=== PATIENT | male | born 1965 | race Caucasian/White ===

== ENCOUNTER 2023-02-27 08:29 | Emergency (ER) | payer BC, SELFPAY ==
[2023-02-27] VITALS (14 sets, daily range): BP systolic 106–143; BP diastolic 67–82; BMI 37.4
--- NOTE | 2023-02-27 09:45 | ED.GENMED ---
History of Present Illness
General
Chief Complaint: Cough
Source: patient
Exam Limitations: none
Time Seen by Provider: 02/27/23 08:48
Nursing documentation reviewed up to this point in time: agreed with
Travel History
Have you had any contact with someone who has COVID-19?: No
Do you have any symptoms of coronavirus? Fever > 100 degrees, chills, cough, shortness of breath, sore throat, loss of taste or smell, muscle aches, or headache?: No
History of Present Illness
History of Present Illness:
Patient status post thoracic dissection repair 1 month ago at [facility], who subsequently acquired ventilator associated pneumonia, presents to ED secondary to coughing up 'blood' since last night. Per patient and spouse
at bedside, patient has had ongoing intermittent cough postoperatively, with sometimes described as harsh cough. Denies chest pain. Denies shortness of breath. Denies fever. Denies nausea or vomiting. Denies abdominal pain. Denies new trauma.
Denies dizziness or weakness.
Past History
Past History
ED Past Medical History: CAD, HTN, Hypercholesterolemia, NIDDM, Psychiatric (Anxiety) and Other (Thoracic aneurysm that they are watching, Kidney stones)
ED Past Surgical History: Appendectomy, Cardiac and Other (gastric bypass, Hernia repair left sided)
Social History
Tobacco: Non-smoker
Alcohol: None
Drug: None
Personal:
Living: with family
Employment: Employed
Family History
Family History: CAD and Other
Review of Systems
Review of Systems
Allergies reviewed?: Yes
All Other Systems: ROS reviewed and negative except as documented in HPI and ROS
Constitutional: Reports no symptoms
EENT: Reports no symptoms
Respiratory: Reports cough, hemoptysis and other; Denies trouble breathing
Cardiac: Reports no symptoms
ABD/GI: Reports no symptoms
: Reports no symptoms
Musculoskeletal: Reports no symptoms
Skin: Reports no symptoms
Neurological: Reports no symptoms
Phy Exam
Physical Exam
Physical Exam:
Physical Exam
General: no apparent distress, not acutely ill. afebrile
Head: nc/at. eomi
Neck: supple. normal range of motion. .
Heart: s1/s2 regular rate and rhythm, no murmur. equal radial pulses.
Lungs: no acute respiratory distress. clear bilaterally. well healed surgical scar noted over anterior chest wall.
Abdomen: normal bowel sounds. not tender.
Neuro: alert and oriented. no focal neurological deficits
Skin: no rash
Psychiatric: well kept. interactive and cooperative
Extremities: no edema. no calf tenderness.
Course
Orders/Labs/Results
Orders:
Orders
02/27/23
Electrocardiogram (*1) Stat
Reason for Study: Chest Pain
Comment: DONE
02/27/23 09:31
CT Chest Angio W/wo Iv Contras Urgent
Comment:
Reason For Exam: Hemoptysis with recent thoracic dissection repair
02/27/23 09:39
COVID-19 Antigen Urgent
Source: Nasal Swab
Complete Blood Count/No Diff Urgent
Comprehensive Metabolic Panel Urgent
Magnesium Urgent
NT-proBNP Urgent
Abnormal Lab Results
02/27/23
09:39
WBC 11.9 H 10^3/uL
(4.8-10.8)
RBC 3.34 L 10^6/uL
(4.70-6.10)
Hgb 9.8 L g/dL
(13.0-18.0)
Hct 30.3 L %
(39.0-52.0)
MCHC 32.3 L g/dL
(33.0-37.0)
RDW 15.5 H %
(11.5-14.5)
Sodium 134 L mmol/L
(135-145)
Glucose 123 H mg/dl
(70-99)
Albumin 3.1 L g/dl
(3.5-5.0)
02/27/23 09:39
02/27/23 09:39
Vital Signs
Initial and Last Documented VS:
Initial Vital Signs
Pulse Resp Pulse Ox
88 27 98
02/27/23 08:46 02/27/23 08:46 02/27/23 08:46
Last Documented Vital Signs
Temp Pulse Resp BP Pulse Ox
99.1 F 87 21 143/79 96
02/27/23 17:35 02/27/23 17:45 02/27/23 17:45 02/27/23 17:26 02/27/23 17:45
MDM/Problems Addressed
MDM/Problems Addressed:
H/H stable and patient remains hemodynamically stable during observation, although with multiple episodes of coughing associated with small blood clots, noted by nursing staff.
After discussion with radiology, decision made to obtain CT angiogram Chest.
CTA chest: no acute findings.
Discussed with ([facility]) - recommends transfer to [facility], in light of recent surgery with patient being on anticoagulation (aspirin/plavix).
Discussed with (CT surgery @ [place]) - agreed to accept transfer.
Transfer consent on the chart.
*Critical Care Note
Total Time (30-74mins, 75-104mins- exclusive of procedures): Not Applicable
ED Attending Note
-
Portions of this chart may have been created with voice recognition software.� Occasional wrong word or��sound alike� substitutions may have occurred due to the inherent limitations of voice recognition software.
Discharge Plan
Departure
Patient Disposition: Acute [facility]
Date of Disposition: 02/27/23
Time of Disposition: 12:38
Discharge Problem:
Hemoptysis
Prescriptions:
No Action
multivitamin 1 EACH tablet
1 ea PO DAILY
atorvastatin 80 MG tablet
80 mg PO QPM
clopidogrel 75 MG tablet
75 mg PO DAILY Qty: 0 0RF
zinc sulfate 50 mg zinc (220 mg) Tablet
50 mg PO DAILY
docusate sodium [Colace] 100 mg Capsule
100 mg PO BID
bisacodyl [Dulcolax (bisacodyl)] 5 mg Tablet,Delayed Release (Dr/Ec)
10 mg PO DAILYPRN PRN (Reason: CONSTIPATION)
clotrimazole [Lotrimin] 1 % Cream
1 applic TOPICAL BID
acetaminophen 325 mg Tablet
650 mg PO Q6HPRN PRN (Reason: MILD PIN)
amiodarone 200 mg Tablet
200 mg PO DAILY
ascorbic acid (vitamin C) 250 mg Tablet
500 mg PO DAILY
ferrous sulfate 325 mg (65 mg iron) Tablet
325 mg PO DAILY
fluticasone propionate [Flovent HFA] 44 mcg/actuation Hfa Aerosol Inhaler
2 puff INHALATION R BID
aspirin 81 mg Tablet,Chewable
81 mg PO DAILY
insulin aspart U-100 100 unit/mL (3 mL) Insulin Pen
3 unit SC Daily
metoprolol succinate 100 mg Tablet Extended Release 24 Hr
100 mg PO HS
melatonin 3 mg Tablet
3 mg PO HS PRN (Reason: FOR SLEEP)
lisinopril 2.5 mg Tablet
2.5 mg PO DAILY
insulin aspart U-100 100 unit/mL (3 mL) Insulin Pen
6 unit SC DAILY@1130
insulin aspart U-100 100 unit/mL (3 mL) Insulin Pen
6 unit SC QPM
senna 8.6 mg Capsule
17.2 mg PO NOON
insulin glargine 100 unit/mL (3 mL) Insulin Pen
15 unit SC HS
pantoprazole [Protonix] 40 mg Tablet,Delayed Release (Dr/Ec)
40 mg PO DAILY
Referrals:
Greg Trejo MD [Family Provider] -
Hospital Transfer
Other hospital: [facility]
I certify that the patient requires transfer: Yes
Discussed case with accepting physician:
Reason for transfer: higher level of care, medical necessity, availability of service and specialties available
Interventions
Interventions:
*Risk Screen - Suicide Last Done: 02/27/23 09:00
*General Assessment Last Done: 02/27/23 15:23
*Neglect/Abuse Screening Last Done: 02/27/23 09:00
ED- Fall Risk Assessment Last Done: 02/27/23 09:00
*ED COVID-19 Vaccine History Last Done: 02/27/23 09:00
*Nursing Disposition Last Done: 02/27/23 17:50
ED- Pulmonary Assessment Last Done: 02/27/23 09:00
Discharge Date and Time
Discharge Date/Time: 02/27/23 17:54
[2023-02-27 09:51] LABS: Hematocrit 30.3 % (39.0-52.0); Hemoglobin 9.8 g/dL (13.0-18.0); Mean Corp Hgb Conc. 32.3 g/dL (33.0-37.0); Mean Corpuscular Hgb 29.3 pg (27.0-31.0); Mean Corpuscular Volume 90.7 fL (80.0-94.0); Mean Platelet Volume 8.9 fL (7.4-10.4); Platelet Count 390 10^3/uL (130-400); Red Blood Cell Count 3.34 10^6/uL (4.70-6.10); Red Cell Dist. Width 15.5 % (11.5-14.5); White Blood Cell Count 11.9 10^3/uL (4.8-10.8)
[2023-02-27 10:06] LABS: ALT (SGPT) 37 U/L (0-50); AST (SGOT) 27 U/L (17-59); Albumin 3.1 g/dl (3.5-5.0); Alkaline Phosphatase 105 U/L (38-126); Blood Urea Nitrogen 13 mg/dl (9-20); COVID-19 Antigen Negative (Negative); Calcium 8.5 mg/dl (8.4-10.2); Carbon Dioxide 24 mmol/L (22-30); Chloride 106 mmol/L (98-107); Estimated Creatinine Clearance 120 ml/min; Glucose 123 mg/dl (70-99); Magnesium 1.7 mg/dl (1.6-2.3); Potassium 4.8 mmol/L (3.5-5.1); Sodium 134 mmol/L (135-145); Total Protein 6.7 g/dl (6.3-8.2); eGFR > 60.00
[2023-02-27 10:14] LABS: NT-proBNP 3120 pg/ml
[2023-02-27 13:43] LABS: Glucose - Point of Care 98 mg/dl (70-99)
== END 2023-02-27 17:54 | disposition short-term general hospital (02) ==
LOC: EMR 08:29
PROVIDERS: EMERGENCY PHYSICIAN Emergency Medicine; FAMILY PHYSICIAN Internal Medicine
DX: R04.2 Hemoptysis (principal); Z11.52 Encounter for screening for COVID-19; I25.10 Atherosclerotic heart disease of native coronary artery without angina pectoris; I71.20 Thoracic aortic aneurysm, without rupture, unspecified; I10 Essential (primary) hypertension; E11.9 Type 2 diabetes mellitus without complications; E78.00 Pure hypercholesterolemia, unspecified; F41.9 Anxiety disorder, unspecified; I35.0 Nonrheumatic aortic (valve) stenosis; G47.30 Sleep apnea, unspecified; M19.90 Unspecified osteoarthritis, unspecified site; K57.92 Diverticulitis of intestine, part unspecified, without perforation or abscess without bleeding; Z98.890 Other specified postprocedural states; Z95.1 Presence of aortocoronary bypass graft; Z96.651 Presence of right artificial knee joint; Z86.73 Personal history of transient ischemic attack (TIA), and cerebral infarction without residual deficits; Z86.74 Personal history of sudden cardiac arrest; Z87.442 Personal history of urinary calculi; Z79.02 Long term (current) use of antithrombotics/antiplatelets; Z79.82 Long term (current) use of aspirin; Z98.84 Bariatric surgery status; Z88.5 Allergy status to narcotic agent
CPT/HCPCS: 99285; 71275; 80053; 82962; 83735; 83880; 85027; 87811; 93005; Q9967

== ENCOUNTER → 2023-03-26 15:27 | Outpatient (REF) | payer BC, SELFPAY | LOC: RAD 15:27 | PROVIDERS: ATTENDING PHYSICIAN Internal Medicine Critical Care Medicine; FAMILY PHYSICIAN Family Medicine | DX: Z87.01 Personal history of pneumonia (recurrent) (principal) | CPT/HCPCS: 71046 ==

== ENCOUNTER 2023-04-04 15:04 | Outpatient (RCR) | payer BC, SELFPAY | END 2023-04-04 23:59 | disposition home or self-care (01) | LOC: RPT 15:04 | PROVIDERS: ATTENDING PHYSICIAN Physical Medicine & Rehabilitation; FAMILY PHYSICIAN Internal Medicine | DX: I71.00 Dissection of unspecified site of aorta (principal); Z74.09 Other reduced mobility; Z73.6 Limitation of activities due to disability; R26.89 Other abnormalities of gait and mobility; R41.841 Cognitive communication deficit; R41.840 Attention and concentration deficit; I69.311 Memory deficit following cerebral infarction; I69.319 Unspecified symptoms and signs involving cognitive functions following cerebral infarction; E66.01 Morbid (severe) obesity due to excess calories; E11.9 Type 2 diabetes mellitus without complications; Z98.890 Other specified postprocedural states | CPT/HCPCS: 96125; 97110; 97112; 97116; 97129; 97130; 97163; 97167; 97530 ==

== ENCOUNTER 2023-04-12 10:48 | Day surgery (SDC) | payer BC, SELFPAY ==
[2023-04-12] VITALS (7 sets, daily range): BP systolic 99–140; BP diastolic 59–84
[2023-04-12 11:27] LABS: Glucose - Point of Care 103 mg/dl (70-99)
--- NOTE | 2023-04-12 15:19 | ITS.CL.IMPLP ---
Enrollment Eligibility Representative - Implant Loop
Implant Loop
Procedure Report:
ILR implant and explant of chronic ILR battery depletion
Date of Procedure: April 12, 2023
Patient : 1965
Procedure: Insertable Loop Recorder explant and implant
Indication: Atrial fibrillation monitoring
Explant:
Medtronic Linq serial number [id number] implanted by Dr. George on March 09, 2017
Implant: Reveal Linq1: Medtronic; Model# [id number] implanted by ma today
Technique: After informed consent and patient safety timeout the patient was prepped and draped in the usual fashion. Conscious sedation was administered and local anesthetic was applied to the left prepectoral subcutaneous tissue. A stab
incision was performed after local anesthetic was given for the chronic ILR implant and with blunt dissection the device was identified and freed after the capsule was opened. The pocket was closed with 2 individual 3.0 Vicryl suture and
Steri-Strips were applied to the site. Approximately 1 cm superior to the removed chronic ILR at battery depletion, A subcutaneous pocket was created with blunt dissection after a stab incision was made. Hemostasis was excellent. The device was
placed in the pocket. The incision was closed with Steri-Strips. The estimated blood loss was minimal. There were no complications.
Final Programming: FVT 231 30/40 beats
VT 176 16 beats
Asystole 3 sec
Gilberto 30 bpm for 4 beats
AF On AF only.
Conclusion: Uncomplicated insertable loop implant after explant of chronic loop generator battery depletion.
Recommendation: Routine post ILR care.
cc: Dr. Dick Veloz
--- NOTE | 2023-04-12 15:30 | PTCARENOTE ---
Vital signs prior to 1530 are not able to be verified by this user. This user received pt at 1527 post procedure.
[2023-04-12 16:26] LABS: Glucose - Point of Care 83 mg/dl (70-99)
== END 2023-04-12 16:30 | disposition home or self-care (01) ==
LOC: CATH 10:48
PROVIDERS: ATTENDING PHYSICIAN Internal Medicine Cardiovascular Disease; FAMILY PHYSICIAN Family Medicine; OTHER PHYSICIAN Internal Medicine Cardiovascular Disease
DX: Z09 Encounter for follow-up examination after completed treatment for conditions other than malignant neoplasm (principal); I48.91 Unspecified atrial fibrillation; Z79.82 Long term (current) use of aspirin; Z79.02 Long term (current) use of antithrombotics/antiplatelets; Z79.4 Long term (current) use of insulin; E11.9 Type 2 diabetes mellitus without complications; G47.33 Obstructive sleep apnea (adult) (pediatric); E78.5 Hyperlipidemia, unspecified; Z86.73 Personal history of transient ischemic attack (TIA), and cerebral infarction without residual deficits
CPT/HCPCS: 33285; 82962; C1764

== ENCOUNTER 2023-04-30 10:07 | Outpatient (RCR) | payer BC, SELFPAY | END 2023-04-30 23:59 | disposition home or self-care (01) | LOC: RPT 10:07 | PROVIDERS: ATTENDING PHYSICIAN Physical Medicine & Rehabilitation; FAMILY PHYSICIAN Internal Medicine | DX: I71.00 Dissection of unspecified site of aorta (principal); Z74.09 Other reduced mobility; Z73.6 Limitation of activities due to disability; R41.841 Cognitive communication deficit; R41.840 Attention and concentration deficit; Z98.890 Other specified postprocedural states | CPT/HCPCS: 97110; 97112; 97116; 97530 ==

== ENCOUNTER → 2023-05-02 | Outpatient (REF) | payer BC, SELFPAY | LOC: DHSLP | PROVIDERS: ATTENDING PHYSICIAN Internal Medicine Critical Care Medicine; FAMILY PHYSICIAN Internal Medicine | DX: G47.33 Obstructive sleep apnea (adult) (pediatric) (principal); R09.02 Hypoxemia | CPT/HCPCS: 95800 ==

== ENCOUNTER 2023-05-11 11:51 | Outpatient (RCR) | payer BC, SELFPAY | END 2023-05-11 23:59 | disposition home or self-care (01) | LOC: RPT 11:51 | PROVIDERS: ATTENDING PHYSICIAN Physical Medicine & Rehabilitation; FAMILY PHYSICIAN Internal Medicine | DX: I71.00 Dissection of unspecified site of aorta (principal); Z74.09 Other reduced mobility; Z73.6 Limitation of activities due to disability; R41.841 Cognitive communication deficit; Z98.890 Other specified postprocedural states; R41.840 Attention and concentration deficit | CPT/HCPCS: 97110; 97112; 97530 ==

== ENCOUNTER 2023-06-04 08:23 | Outpatient (RCR) | payer BC, SELFPAY ==
[2023-05-15 14:10] LABS: Glucose - Point of Care 121 mg/dl (70-99)
[2023-05-15 14:50] LABS: Glucose - Point of Care 112 mg/dl (70-99)
[2023-05-18 08:13] LABS: Glucose - Point of Care 159 mg/dl (70-99)
[2023-05-18 08:59] LABS: Glucose - Point of Care 113 mg/dl (70-99)
[2023-05-21 08:17] LABS: Glucose - Point of Care 152 mg/dl (70-99)
[2023-05-21 09:09] LABS: Glucose - Point of Care 118 mg/dl (70-99)
[2023-05-23 08:06] LABS: Glucose - Point of Care 139 mg/dl (70-99)
[2023-05-23 09:01] LABS: Glucose - Point of Care 126 mg/dl (70-99)
[2023-05-25 08:09] LABS: Glucose - Point of Care 139 mg/dl (70-99)
[2023-05-25 08:59] LABS: Glucose - Point of Care 117 mg/dl (70-99)
[2023-05-28 08:20] LABS: Glucose - Point of Care 131 mg/dl (70-99)
[2023-05-28 09:11] LABS: Glucose - Point of Care 143 mg/dl (70-99)
== END 2023-06-04 23:59 | disposition home or self-care (01) ==
LOC: CRHB 08:23
PROVIDERS: ATTENDING PHYSICIAN Internal Medicine Cardiovascular Disease; FAMILY PHYSICIAN Internal Medicine
DX: Z95.4 Presence of other heart-valve replacement (principal); I25.10 Atherosclerotic heart disease of native coronary artery without angina pectoris (principal)
CPT/HCPCS: 82962; 93797; 93798

== ENCOUNTER 2023-06-04 13:16 | Inpatient (IN) | payer BC, SELFPAY ==
[2023-06-04] VITALS (8 sets, daily range): BP systolic 124–160; BP diastolic 70–98; BMI 36.9; BMI 35.6
--- NOTE | 2023-06-04 09:07 | ED.GENMED ---
History of Present Illness
General
Chief Complaint: Breathing Problem
Source: patient
Time Seen by Provider: 06/04/23 09:06
Nursing documentation reviewed up to this point in time: agreed with
Travel History
Have you had any contact with someone who has COVID-19?: No
Do you have any symptoms of coronavirus? Fever > 100 degrees, chills, cough, shortness of breath, sore throat, loss of taste or smell, muscle aches, or headache?: No
History of Present Illness
History of Present Illness:
Patient is a 57-year-old male status post bypass surgery years ago recent thoracic aortic dissection January 2023 repaired at [facility]. Patient reports he was the most rehab after chemotherapy was second start of cardiac rehab 2 weeks ago. For the
past 3 weeks he has been short of breath however he has been able to do cardiac rehab and walk around last night he woke up in middle the night around 2:30 AM feeling very short of breath and when he went to cardiac rehab today and worked out on the
elliptical his shortness of breath worsened. He reports last night when he was laying down it was worse though despite he is sitting upright now he still has shortness of breath. He dizziness family doctor for this who feels that this was a
component of anxiety. Patient admits to feeling very anxious over what is going on recently and fears that he is going to . Patient thinks about his heart and everything that has happened.
Past History
Past History
ED Past Medical History: CAD, HTN, Hypercholesterolemia, NIDDM, Psychiatric (Anxiety) and Other (Thoracic aneurysm that they are watching, Kidney stones)
ED Past Surgical History: Appendectomy, Cardiac and Other (gastric bypass, Hernia repair left sided)
Social History
Tobacco: Non-smoker
Alcohol: None
Drug: None
Personal:
Living: with family
Employment: Employed
Family History
Family History: CAD and Other
Phy Exam
General Physical Exam
General Presentation: no apparent distress
General age: appears stated age
General Skin: warm and dry
General Habitus: normal
General Mental: anxious
Cardiovascular Exam
Cardiovascular Exam: regular rate/rhythm, no murmur and normal peripheral pulses
Pulmonary Exam
Pulmonary Exam: other (decreased b/l )
Musculoskeletal Exam
Musculoskeletal Exam: full ROM and other (No lower extremity swelling)
Skin Exam
Skin Exam: normal color and warm/dry
Psychiatric Exam
Psychiatric Exam: normal mood/affect
Scores
Heart Failure Risk
Heart Failure Risk Score: Not Applicable
Course
Orders/Labs/Results
Orders:
Orders
06/04/23 09:04
Electrocardiogram (*1) Urgent
Reason for Study: Shortness of Breath
EKG- Treatment ONCE
06/04/23 09:16
IV Insert/Care/Rem.- Treatment PRN
06/04/23 09:21
Cardiac Monitoring- Treatment ONCE
CR Chest - 2 Views Urgent
Comment:
Reason For Exam: sob
06/04/23 09:25
Complete Blood Count/With Diff Urgent
Comprehensive Metabolic Panel Urgent
NT-proBNP Urgent
Troponin I Urgent
06/04/23 09:29
DDimer [D-Dimer] Urgent
06/04/23 10:08
CT Chest Pe Study Urgent
Comment:
Reason For Exam: sob
06/04/23 11:53
Furosemide [Lasix] 40 mg IV NOW STA
Abnormal Lab Results
06/04/23 06/04/23
09:25 09:29
RBC 4.06 L 10^6/uL
(4.70-6.10)
Hgb 11.2 L g/dL
(13.0-18.0)
Hct 34.3 L %
(39.0-52.0)
MCHC 32.7 L g/dL
(33.0-37.0)
RDW 15.4 H %
(11.5-14.5)
Plt Count 416 H 10^3/uL
(130-400)
Abs Immat Gran (auto) 0.1 H 10^3/uL
(0-0.05)
Absolute Neuts (auto) 7.9 H 10^3/uL
(1.4-6.5)
Absolute Monos (auto) 0.7 H 10^3/uL
(0.1-0.6)
Immature Gran % 0.6 H %
(0-0.5)
Neutrophils % 75.3 H %
(42.2-75.2)
Lymphocytes % 14.5 L %
(20.5-51.1)
D-Dimer 4.62 H ug/mlFEU
(0.00-0.50)
BUN 21 H mg/dl
(9-20)
Glucose 129 H mg/dl
(70-99)
06/04/23 09:25
06/04/23 09:25
Vital Signs
Initial and Last Documented VS:
Initial Vital Signs
Temp Pulse Resp BP Pulse Ox
98.0 F 63 20 158/96 94
06/04/23 09:00 06/04/23 09:00 06/04/23 09:00 06/04/23 09:00 06/04/23 09:00
Last Documented Vital Signs
Temp Pulse Resp BP Pulse Ox
98.0 F 68 27 150/98 92
06/04/23 09:00 06/04/23 11:25 06/04/23 11:25 06/04/23 11:25 06/04/23 09:30
Pest Controller consulted with Physician
Pest Controller consulted with physician?: Yes
Name of Physician Consulted: [facility]
MDM/Problems Addressed
MDM/Problems Addressed:
Patient is a 57-year-old male with significant past medical history including CABG years ago recent thoracic aortic dissection with repair at [facility] January 2023 currently in cardiac rehab complains of shortness of breath for the past several weeks
getting worse. He does report that recently shortness of breath is worse with laying down and today it was worse with exertion of cardiac rehab on the elliptical. He does admit to feeling very anxious over his recent cardiac issues. He presents
awake alert no acute distress he seems mildly short of breath with some mild conversational dyspnea. He does seem anxious. He denies any recent fever chills he is afebrile with a normal white count. X-ray does show small bilateral pleural
effusions right larger than left and probable bilateral atelectasis x-ray reads developing pneumonia is not excluded however clinically patient does not examine like pneumonia has no symptoms. Patient's D-dimer is elevated will obtain CT. patient's
BNP is elevated as well no lower extremity swelling. Case d/c w/ ED physician.
1158 : CT neg for PE CAT scan shows moderate bilateral pleural effusions progressed on the right improved on the left ; thoracic aortic dissection stable. As discussed ED physician will treat as CHF with elevated BNP pleural effusions and dyspnea
Lasix ordered will admit.
Chronic conditions affecting care:
Thoracic dissection CAD, CABG hypertension hyperlipidemia
*Radiology
Radiology exam reviewed: radiology read reviewed
*Pulse Oximetry
Patient hypoxic: yes
*EKG
Interpretation: normal
Comparison EKG: no comparison EKG present
Heart Rate: 66
Rate: normal
Rhythm: sinus and other (with PVCs)
*Critical Care Note
Total Time (30-74mins, 75-104mins- exclusive of procedures): Not Applicable
ED Attending Note
-
Portions of this chart may have been created with voice recognition software.� Occasional wrong word or��sound alike� substitutions may have occurred due to the inherent limitations of voice recognition software.
Discharge Plan
Departure
Patient Disposition: Admit
Date of Disposition: 06/04/23
Time of Disposition: 12:03
Admit to: Telemetry
Admit to doctor: hospitalist
Presentation/result/management discussed w/ accepting MD/DO: Hospitalist
Patient with high blood pressure during this ER visit?: Yes
Condition: Fair
Covid-19: Not Applicable
Discharge Problem:
Acute dyspnea, Congestive heart failure (CHF), Bilateral pleural effusion
Prescriptions:
No Action
atorvastatin 80 MG tablet
80 mg PO DAILY
ferrous sulfate [Iron (ferrous sulfate)] 325 mg (65 mg iron) Tablet
325 mg PO NOON
fluticasone propionate 50 mcg/actuation [place],Suspension
1 spray INTRANASAL DAILY
sertraline 50 mg Tablet
75 mg PO DAILY
metformin 500 mg Tablet
500 mg PO BIDWMEAL
famotidine 40 mg Tablet
40 mg PO HS
aspirin 81 mg Tablet,Delayed Release (Dr/Ec)
81 mg PO DAILY
levothyroxine 50 mcg Tablet
50 mcg PO DAILY
lisinopril 2.5 mg Tablet
2.5 mg PO HS
ascorbic acid (vitamin C) 250 mg Tablet
250 mg PO NOON
clopidogrel 75 MG tablet
75 mg PO DAILY Qty: 30 0RF
metoprolol succinate 25 mg Tablet Extended Release 24 Hr
25 mg PO BID 30 Days Qty: 60 0RF
amiodarone 200 mg Tablet
200 mg PO DAILY 30 Days Qty: 30 0RF
Referrals:
Demetria Mukherjee DO [Family Provider] -
Interventions
Interventions:
*Risk Screen - Suicide Last Done: 06/04/23 09:30
*General Assessment Last Done: 06/04/23 09:21
*Neglect/Abuse Screening Last Done: 06/04/23 09:30
ED- Fall Risk Assessment Last Done: 06/04/23 09:31
*ED COVID-19 Vaccine History Last Done: 06/04/23 09:21
ED- Cardiac Assessment Last Done: 06/04/23 09:30
ED- Pulmonary Assessment Last Done: 06/04/23 09:30
Discharge Date and Time
Print Language: [place]
[2023-06-04 09:41] LABS: % Basophils 0.7 % (0-2); % Eosinophils 2.5 % (0-6); % Immature Granulocytes 0.6 % (0-0.5); % Lymphocytes 14.5 % (20.5-51.1); % Monocytes 6.4 % (1.7-9.3); % Neutrophils 75.3 % (42.2-75.2); Absolute Basophils 0.1 10^3/uL (0-0.2); Absolute Eosinophils 0.3 10^3/uL (0-0.7); Absolute Immature Granulocytes 0.1 10^3/uL (0-0.05); Absolute Lymphocytes 1.5 10^3/uL (1.2-3.4); Absolute Monocytes 0.7 10^3/uL (0.1-0.6); Absolute Neutrophils 7.9 10^3/uL (1.4-6.5); Hematocrit 34.3 % (39.0-52.0); Hemoglobin 11.2 g/dL (13.0-18.0); Mean Corp Hgb Conc. 32.7 g/dL (33.0-37.0); Mean Corpuscular Hgb 27.6 pg (27.0-31.0); Mean Corpuscular Volume 84.5 fL (80.0-94.0); Mean Platelet Volume 9.8 fL (7.4-10.4); Nucleated Red Blood Cells % 0 % (-); Platelet Count 416 10^3/uL (130-400); Red Blood Cell Count 4.06 10^6/uL (4.70-6.10); Red Cell Dist. Width 15.4 % (11.5-14.5); White Blood Cell Count 10.5 10^3/uL (4.8-10.8)
[2023-06-04 09:51] LABS: ALT (SGPT) 42 U/L (0-50); AST (SGOT) 45 U/L (17-59); Albumin 4.2 g/dl (3.5-5.0); Alkaline Phosphatase 109 U/L (38-126); Blood Urea Nitrogen 21 mg/dl (9-20); Calcium 9.4 mg/dl (8.4-10.2); Carbon Dioxide 22 mmol/L (22-30); Chloride 104 mmol/L (98-107); Estimated Creatinine Clearance > 125 ml/min; Glucose 129 mg/dl (70-99); Potassium 4.3 mmol/L (3.5-5.1); Sodium 136 mmol/L (135-145); Total Bilirubin 0.6 mg/dl (0.2-1.3); Total Protein 7.4 g/dl (6.3-8.2); eGFR > 60.00
[2023-06-04 09:55] LABS: D-Dimer 4.62 ug/mlFEU (0.00-0.50)
[2023-06-04 10:04] LABS: NT-proBNP 8280 pg/ml; Troponin I < 0.012 ng/ml
[2023-06-04] MEDS: LASIX 40 MG IV (12:02)
--- NOTE | 2023-06-04 12:25 | HPS.HSE ---
Addendum entered and electronically signed by Mata Juarez MD 06/04/23 15:00:
Seen and examined by me independently in collaboration with the nurse practitioner Kim.
Past medical history/social history/medication/allergies reviewed.
Lab data and imaging data reviewed.
Patient presents with progressive shortness of breath. No significant medical issues recently with thoracic aortic dissection requiring surgical repair and apparently CAD requiring stent. There was also history of being intubated and had
Klebsiella pneumonia treatments. Is not clear on all of his recent history.
No JVD or lower EXTR edema but he has elevated BNP and bilateral pleural effusion raising concern for heart failure for his shortness of breath. Started on IV Lasix. Check an echocardiogram.
Patient also has significant pulmonary parenchymal processes including pulmonary nodules, bilateral atelectasis versus scarring, stable upper lobe pneumothorax but denies having had any chest tubes. Cannot rule out pulmonary underlying functional
disease from all all his lung insults. Obtain old information from [facility]. Consult pulmonary. Check inflammatory markers. Clinically not acting like active pneumonia. Check procalcitonin.
Original Note:
Family Physician
-
Family Physician: Demetria Mukherjee
Chief Complaint
-
Shortness of breath, ALONZO
History of Present Illness
57-year-old male who is status post thoracic aortic dissection repair /MT with stent January 2023 at [facility] who reports for the past 3 weeks he has been short of breath and has been unable to complete cardiac rehab and is complaining of dyspneic
on exertion especially at night. He attempted cardiac rehab today but was unable and was sent to the ER for evaluation. He denies headache, dizziness, fever, chills, cough, chest pain, palpitations, abdominal pain, nausea, vomiting, diarrhea,
urinary symptoms. He has past medical history of thoracic aortic dissection with repair, MT with stent placement January 28, 2023,Klebsiella pneumonia required inotrope and vasopressor pressure support with 7-day course cefepime he had multiple
bronchoscopies was extubated 02/02/2023, A-fib with RVR during aortic dissection repair required multiple cardioversions,Linq device placed March 2023 HTN, HLD, CVA 2019, DM2, CVA 2019, hypothyroidism, GERD, gastric bypass/obesity, depression,
anxiety, right pulmonary nodules
Medical History
Past Medical History
Past Medical History: Reports Other
Additional Past Medical History:
Thoracic aortic dissection with repair
Klebsiella pneumonia required inotrope and vasopressor pressure support with 7-day course cefepime he had multiple bronchoscopies was extubated 02/02/2023
MT with stent placement January 28, 2023
A-fib with RVR during aortic dissection repair required multiple cardioversions
HTN
HLD
CVA 2020
DM2
Hypothyroidism
GERD
gastric bypass/obesity
depression
anxiety
Past Surgical History: Reports Other
Additional Past Surgical History:
Thoracic aneurysm repair January 2023 [facility]
CABG
Cardiac stent times 05 January 2023
[facility]
Gastric bypass
Left inguinal hernia repair
Right knee replacement
Appendectomy
Social History
Tobacco: Non-smoker
Alcohol: None
Drug: None
Personal:
Living: With Family ()
Family History
Family History: Other (Father age 74 history DM2, HTN, HLD, mother living and healthy)
Allergies / Home Medications
Allergies reflects when Allergies were last updated in [employer].
Home Medications with original date entered in [employer]
Allergy/Medication List:
Allergies
Allergy/AdvReac Type Severity Reaction Status Date / Time
morphine Allergy Hives Verified 06/04/23 09:00
Quinolones Allergy Unknown Verified 06/04/23 09:00
Home Medications
atorvastatin 80 mg tablet 80 mg PO DAILY High cholesterol 12/19/19
ascorbic acid (vitamin C) 250 mg tablet 250 mg PO NOON 02/24/23
amiodarone 200 mg tablet 200 mg PO DAILY 30 days #30 tabs 03/09/23
clopidogrel 75 mg tablet 75 mg PO DAILY #30 tabs 03/09/23
metoprolol succinate 25 mg tablet,extended release 24 hr 25 mg PO BID Blood pressure 30 days #60 tabs 03/09/23
ferrous sulfate 325 mg (65 mg iron) tablet (Iron (ferrous sulfate)) 325 mg PO NOON 04/12/23
fluticasone propionate 50 mcg/actuation nasal spray,suspension 1 spray intranasal DAILY 04/12/23
sertraline 50 mg tablet 75 mg PO DAILY 04/12/23
aspirin 81 mg tablet,delayed release 81 mg PO DAILY 06/04/23
famotidine 40 mg tablet 40 mg PO HS 06/04/23
levothyroxine 50 mcg tablet 50 mcg PO DAILY 06/04/23
lisinopril 2.5 mg tablet 2.5 mg PO HS 06/04/23
metformin 500 mg tablet 500 mg PO BIDWMEAL 06/04/23
Review of Systems
-
History Source: Patient
A 12 point ROS was completed and negative except as noted: Yes
Constitutional: Denies Fever, Fatigue or Chills
EENT: Denies Tearing or Runny Nose
Respiratory: Reports Trouble Breathing (ALONZO); Denies Cough
Cardiac: Denies Chest Pain, Diaphoresis, Palpitations or Syncope
Abdomen/GI: Denies Abdominal Pain, Nausea, Vomiting, Diarrhea, Constipated, Bloody Stools or Black Stools
: Denies Dysuria, Frequency, Flank Pain, Incontinence, Difficulty Voiding, Urgency or Bleeding
Musculoskeletal: Denies Joint Pain, Joint Swelling or Edema
Skin: Denies Itching or Rash
Neurological: Denies Dizzy, Headache or Weakness
Endocrine: Reports No Symptoms
Hematologic/Lymphatic: Reports No Symptoms
Psych: Reports Calm
Physical Exam
Vital Signs
Vital Signs
Temp Pulse Resp BP Pulse Ox
98.0 F 64 27 157/92 93
04/29/24 09:00 06/04/23 12:00 06/04/23 12:00 06/04/23 12:00 06/04/23 12:00
Physical Exam
General: Comfortable and Conversant; No Pain, Fever or Chills
HEENT: NormoCephalic, Anicteric, Moist mucous membranes, PERRLA, [place] Conjunctivae and No Ptosis
Respiratory: Other (Diminished breath sounds right lung from base to middle, left lung lower base); No Wheezes or Rales
Cardiac: S1/S2, Regular Rhythm (With PACs), Murmur (2/6 systolic) and Peripheral Edema (Trace bilateral); No Rub or Gallop
GI: Soft, Non Tender, Non Distended and No Hepatosplenomegaly
Rectal: Deferred by Provider
Genito-urinary: Deferred by me
Musculoskeletal: No Clubbing, No Cyanosis and No Edema
Skin: Warm and Dry; No Rash
Neuro: AO x 3, No Motor Deficits, Nonfocal/grossly intact and No Sensory Deficits; No Slurred Speech, Facial Droop or Tremors
Psych: Calm
Laboratory Results
-
06/04/23 09:25
06/04/23 09:25
Laboratory Results
Total Bilirubin 0.6 mg/dl (0.2-1.3) 06/04/23 09:25
AST 45 U/L (17-59) 06/04/23 09:25
ALT 42 U/L (0-50) 06/04/23 09:25
Alkaline Phosphatase 109 U/L (38-126) 06/04/23 09:25
Troponin I < 0.012 ng/ml 06/04/23 09:25
Impression/Plan
-
Impression/plan:
Admit to telemetry
#Bilateral pleural effusions right greater than left
#S/p thoracic dissection repair at [facility] 01/28/2023
BNP 8220
93% Ra
-IV Lasix 40 mg given in ER cont lasix 40 mg daily
-Consult [facility] cardiology
-[address] chest: Moderate bilateral pleural effusions progressed on the right. Improved on the left
Mild aneurysmal dilatation of the proximal descending thoracic aorta. Mild mediastinal lymphadenopathy progressed, mild right lower lobe consolidation may represent atelectasis or pneumonia
No evidence of PE
Right upper lobe pulmonary nodules
Severe small right upper lobe and right lower lobe pulmonary nodules likely postinflammatory/postinfectious change considering acute development
LAURA postsurgery January 2023 EF 40-45%, moderate RV dysfunction, inferior septal hypokinesis
#S/p thoracic dissection repair at [facility] 01/28/2023
#Klebsiella pneumonia required inotrope and vasopressor pressure support with 7-day course cefepime he had multiple bronchoscopies was extubated 02/02/2023
#CAD status post CABG jan 28 2023 [facility]
-Continue aspirin, atorvastatin 80 mg daily, Plavix 75 mg daily, beta-libertad
EKG sinus rhythm with PACs 66 bpm, QTc 486 MS
#Known right upper lobe pulmonary nodules
#Severe small right upper lobe and right lower lobe pulmonary nodules
# Chronic moderate loculated anterior right lower lobe pneumothorax.
-Consult PULM
- esr, crp
#A-fib with RVR during aortic dissection repair required multiple cardioversions
#Linq device placed March 2023
- continue amiodarone, asa
-cardiology to follow
#HTN�benign
157/92
-Continue metoprolol succinate 25 mg twice daily, lisinopril 2.5 mg at bedtime
#DM2
-Hold metformin x48 hours as patient got IV contrast
-Accu-Cheks with SSI, check HgbA1c
#CVA 2019
Had right-sided weakness that resolved
-Continue aspirin, Plavix, statin
#Hypothyroidism
-Continue levothyroxine 50 mcg
#Gastric bypass Hx
#GERD
-Continue Pepcid 40 mg at bedtime
#Depression/anxiety
Continue Zoloft 75 mg daily
#Obesity due to excess calorie consumption�BMI 36.9 kg
#History of gastric bypass
Low-fat diet, 1800 ADA
DVT prophylaxis
Scd
Full code
--- NOTE | 2023-06-04 13:52 | CON.CAR ---
Addendum entered and electronically signed by Alethea George MD 06/04/23 16:32:
I saw and examined the patient.
The [employer]'s note was reviewed and I agree with the note.
Comment:
Patient was volume overloaded on exam. Recent history noted with type A aortic dissection status post repair (01/2023). History of CABG (2003). He also has a history of paroxysmal atrial fibrillation for which he is only on aspirin and has Linq
in place per CT surgery at [facility]. No arrhythmias noted on most recent Linq download. He is then watching his diet t but his weight may be up 14 pounds since last office visit. In addition he is being assessed for sleep apnea.
He presents with acute on chronic heart failure with preserved ejection fraction, volume overload. Also pleural effusions noted.
-He is responding to IV diuretic. Continue IV diuresis. He has not been on oral diuretics since open heart surgery and likely will need oral diuretic on discharge.
-Heart failure and dietary education
-Follow input/output/daily weights along with chemistry.
-Check echocardiogram
-Troponin negative thus far
-Check TSH
-Agree with sleep apnea testing
-Agree with tighter blood pressure control especially in the setting of recent aortic dissection. Goal blood pressure 120/80.
Original Note:
Consultation
Consultation Request
Date/Time Consultation Requested: 06/04/2023
Date/Time Consultation Performed: 06/04/2023
Requesting Provider: Dr. Juarez
Performing Provider: Dr. Veloz
Reason for Consultation: CHF
Medical History
-
History of Present Illness:
HPI: Juan M is a 57 year old male with PMH of CAD s/p CABG, type A aortic dissection s/p repair, paroxysmal atrial fibrillation, CVA, HTN, HLD, DM2, and LOLY who presented to [facility] for evaluation of SOB. He notes that for the past few days he has had
some increased SOB. He was seen by his PCP who felt that anxiety may be contributing to his symptoms and he was started on medication for anxiety. Last night he then states he woke up in the middle of the night, gasping for air. He notes this was
uncommon for him, and he was unable to fall back asleep. He thought he would try to participate in cardiac rehab today, however when doing his first exercise, he became extremely SOB and knew he would not be able to continue exercising. He was sent
to the ER for further evaluation and was found to have evidence of acute heart failure with elevated proBNP and pleural effusions. He was given a dose of IV lasix in the ER and notes his breathing has improved and he has been responding quickly to
the lasix. He has been admitted for further evaluation and treatment and cardiology consulted for evaluation. He notes he has had increased abdominal bloating and mild LE edema. Has not noticed weight gain, however weight recorded in ER is 14lbs
higher than last OV weight 03/2023. Denies any chest pain or palpitations.
PMH:
CAD
CABG x2 (LEACH - LAD, free radial - PDA) 2003
stable coronary disease with patent grafts by cath 11/18/2018
h/o Type A aortic dissection 01/28/2023
s/p repair @ [facility] 01/28/2023
Paroxysmal atrial fibrillation
Linq monitor implanted 04/12/2023
Not chronically anticoagulated due to h/o hemoptysis
Chronic amiodarone therapy
h/o L CVAs 03/2017
TIA 03/04/17
HTN
HLD
DM2
LOLY
Past Medical History
Past Medical History: Other (In HPI)
Past Surgical History: Appendectomy, Cardiac (CABG x2 2003, Total aortic arch replacement w/ Thora flex graft, graft to L subclavian artery and R innominate artery, aortic valve resuspension and replacement of ascending aorta w/ dacryon graft, R
radial artery reimplantation 01/28/2023, Linq monitor 04/2023) and Other (bariatric surgery 04/2019, inguinal hernia repair, R TKR, lithotripsy)
Social History
Tobacco: Non-Smoker
Alcohol: None
Drug: None
Personal:
Living: With Family
Family History
Family History: Diabetes and Hypertension
Allergies / Home Medications
Allergy/AdvReac Type Severity Reaction Status Date / Time
morphine Allergy Hives Verified 06/04/23 09:00
Quinolones Allergy Unknown Verified 06/04/23 09:00
�Medication �Instructions �Recorded �Confirmed �Type
atorvastatin 80 mg tablet 80 mg PO DAILY High cholesterol 12/19/19 06/04/23 History
ascorbic acid (vitamin C) 250 mg 250 mg PO NOON 02/24/23 06/04/23 History
tablet
amiodarone 200 mg tablet 200 mg PO DAILY 30 days #30 tabs 03/09/23 06/04/23 Rx
clopidogrel 75 mg tablet 75 mg PO DAILY #30 tabs 03/09/23 06/04/23 Rx
metoprolol succinate 25 mg 25 mg PO BID Blood pressure 30 03/09/23 06/04/23 Rx
tablet,extended release 24 hr days #60 tabs
ferrous sulfate 325 mg (65 mg 325 mg PO NOON 04/12/23 06/04/23 History
iron) tablet (Iron (ferrous
sulfate))
fluticasone propionate 50 1 spray intranasal DAILY 04/12/23 06/04/23 History
mcg/actuation nasal
spray,suspension
sertraline 50 mg tablet 75 mg PO DAILY 04/12/23 06/04/23 History
aspirin 81 mg tablet,delayed 81 mg PO DAILY 06/04/23 06/04/23 History
release
famotidine 40 mg tablet 40 mg PO HS 06/04/23 06/04/23 History
levothyroxine 50 mcg tablet 50 mcg PO DAILY 06/04/23 06/04/23 History
lisinopril 2.5 mg tablet 2.5 mg PO HS 06/04/23 06/04/23 History
metformin 500 mg tablet 500 mg PO BIDWMEAL 06/04/23 06/04/23 History
Review of Systems
-
History Source: Patient
All other systems: Negative unless noted
Physical Exam
Vital Signs
Temp Pulse Resp BP Pulse Ox
98.0 F 65 17 160/92 96
06/04/23 09:00 06/04/23 13:30 06/04/23 13:30 06/04/23 13:00 06/04/23 13:15
Lab Results
06/04/23 09:25
06/04/23 09:25
Troponin I < 0.012 ng/ml 06/04/23 09:25
[id number] Pept 8280 pg/ml 06/04/23 09:25
Physical Exam
General: Well Developed, Well Nourished and No Apparent Distress
HEENT: Normocephalic, Anicteric and Moist Mucous Membranes
Respiratory: Non Labored Respirations and Other (Dec R base)
Cardiac: S1/S2, Regular Rhythm and Murmur
Musculoskeletal: No Clubbing, No Cyanosis and Edema
Skin: Warm and Dry
Neuro: AO x 3 and Nonfocal/Grossly Intact
Psych: Calm
Impression / Plan
-
PCP: Dr. Greg Trejo
Rn Heart: Dr. Veloz
Impression:
Presented with SOB
Acute HFmrEF
Pleural effusions R>L
CAD
CABG x2 (LEACH - LAD, free radial - PDA) 2003
stable coronary disease with patent grafts by cath 11/18/2018
h/o Type A aortic dissection 01/28/2023
s/p repair [facility] 01/28/20[facility]
Paroxysmal atrial fibrillation
Linq monitor implanted 04/12/2023
Not chronically anticoagulated due to h/o hemoptysis
Chronic amiodarone therapy
h/o L CVAs 03/2017
TIA 03/04/17
HTN
HLD
DM2
LOLY
Echo 07/25/2021: EF 59%, mild cLVH, mild MR, mildly dilated RV, mildly dilated ascending aorta 4.0cm
Post-Op LAURA 01/28/2023 @[facility]: EF 40-45%, moderate RV dysfunction, inferior septal hypokinesis, trace TR
Echo 06/04/2023: Study pending
Plan:
-Presented with SOB. Started to worsen, waking him from sleep last night, and unable to participate in cardiac rehab this AM, prompting ER evaluation.
-In acute heart failure on arrival. ProBNP 8280. b/l pleural effusions noted. Responding well to IV lasix given in ER.
-Continue IV lasix 40mg daily. Not on diuretic as OP. Did require diuresis post-op after aortic dissection repair.
-Creat stable at 0.8, follow w/ diuresis.
-Has not noticed weight gain at home, although is 14lbs up by ER weight of 264lbs when compared to POLA weight.
-Follow daily weights, I&Os.
-Continue Toprol and lisinopril. BP elevated, will increase lisinopril to 5mg daily. Will ask CM to assess the cost of Jardiance 10mg daily.
-Previously on spironolactone, stopped post dissection repair due to SHAKA.
-Check echo to assess EF and valvular disease.
-Troponin negative x 1. Will repeat.
-D-Dimer elevated, CT of chest negative for PE.
-EKG reviewed, SR with PVCs. He has linq monitor in place w/ no afib noted. Continues on amiodarone 200mg daily.
-Not anticoagulated chronically due to h/o severe hemoptysis post op.
-Check TSH.
-Continue aspirin, Plavix, and atorvastatin 80mg daily.
-On 2L NC, wean as able.
HPI: Juan M is a 57 year old male with PMH of CAD s/p CABG, type A aortic dissection s/p repair, paroxysmal atrial fibrillation, CVA, HTN, HLD, DM2, and LOLY who presented to [facility] for evaluation of SOB. He notes that for the past few days he has had
some increased SOB. He was seen by his PCP who felt that anxiety may be contributing to his symptoms and he was started on medication for anxiety. Last night he then states he woke up in the middle of the night, gasping for air. He notes this was
uncommon for him, and he was unable to fall back asleep. He thought he would try to participate in cardiac rehab today, however when doing his first exercise, he became extremely SOB and knew he would not be able to continue exercising. He was sent
to the ER for further evaluation and was found to have evidence of acute heart failure with elevated proBNP and pleural effusions. He was given a dose of IV lasix in the ER and notes his breathing has improved and he has been responding quickly to
the lasix. He has been admitted for further evaluation and treatment and cardiology consulted for evaluation. He notes he has had increased abdominal bloating and mild LE edema. Has not noticed weight gain, however weight recorded in ER is 14lbs
higher than last OV weight 03/2023. Denies any chest pain or palpitations.
Data Reviewed
-
EKG: Tracing Personally Visualized and interpreted
Radiology: Report Reviewed by me
Labs: Labs Reviewed by me
Old Records: Reviewed
[2023-06-04 15:09] LABS: Erythrocyte Sed Rate 32 mm/hour (0-20)
--- NOTE | 2023-06-04 16:02 | PTCARENOTE ---
pt arrived to unit at 1434 via stretcher form ED. pt ambulated from hallway to bed w/out assist. pt wearing 2L NC stating 94%. bp elevated sys in 150s. admissions ocmpleted by matilda MCKAY, assessment completed by this nurse. call negrete in reach, pt
oriented to unit.
--- NOTE | 2023-06-04 16:22 | CM ---
Received referral for cost of Jardiance. Checked cost- Jardiance 10 mg 30 day supply-30 dollars 90 day supply 60 dollars. This information was conveyed to Cardiology.
Plan: Case management will continue to follow and assist with discharge planning. Will obtain information for assessment.
[2023-06-04 17:08] LABS: Glucose - Point of Care 102 mg/dl (70-99)
--- NOTE | 2023-06-04 17:20 | CON.PUL ---
Consultation
Consultation Request
Date/Time Consultation Requested: 06/03
Date/Time Consultation Performed: 06/03
Reason for Consultation: Shortness of breath
Medical History
-
History of Present Illness:
History obtained from the patient, reviewing both outpatient and inpatient records. Patient is a pleasant 57-year-old male with complex cardiac history, including bypass surgery 2003, aortic arch dissection with emergent repair January 2023,
started cardiac rehab 2 weeks ago and was doing okay. However over the past few days he has noticed increased shortness of breath and his last cardiac rehab session did not feel right. He also has complained of nocturnal dyspnea and had an episode
of PND at 2:30 in the morning the day prior to admission. Throughout this he denies chest pain, chest tightness. Denies palpitations, cough, hemoptysis, fevers. He admits to night sweats for the past 2 weeks. Upon arrival to [facility],
afebrile, pulse 63, breathing at 20, blood pressure 158/96, 94%. Chest x-ray suggested small bilateral pleural effusions. Abnormal D-dimer prompted CT chest which was negative for PE. Elevated proBNP noted. Patient was treated for heart failure
and admitted. We are asked to comment on pulmonary process 06/04/2023
Since admission, patient has feeling better. He admits to 12 pound weight gain over the past 2 weeks. He also admits to having deli meats over the weekend but otherwise does not add salt to his meals
.
PMH: Severe sleep apnea, supine index 82.2, total index 25.8, history of pneumonia February 2023, coronary disease status post bypass surgery, aortic arch dissection status post emergent surgery 01/28/2023 ([place]/hypertension, hyperlipidemia,
diabetes, fatty liver,[facility]), nephrolithiasis. History of appendectomy, bariatric surgery February 2019, left inguinal hernia repair December 2019, right TKR, lithotripsy, aortic dissection/arch repair 01/29/2024, coronary bypass surgery 2003
Past Medical History
Past Medical History: None (See above)
Past Surgical History: None (See above)
Social History
Tobacco: Non-smoker
Alcohol: None
Drug: None
Personal:
Living: With Family
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
Family History
Family History: Other (2 sisters healthy. Children healthy. Family history negative for blood clots, pneumonia. Father at age 73 from heart disease. Mother alive)
Allergies / Home Medications
Allergies
Allergy/AdvReac Type Severity Reaction Status Date / Time
morphine Allergy Hives Verified 06/04/23 09:00
Quinolones Allergy Unknown Verified 06/04/23 09:00
Home Medications
�Medication �Instructions �Recorded �Confirmed �Last Taken �Type
atorvastatin 80 mg tablet 80 mg PO DAILY High cholesterol 12/19/19 06/04/23 06/04/23 History
ascorbic acid (vitamin C) 250 mg 250 mg PO NOON Supplement 02/24/23 06/04/23 06/03/23 History
tablet
amiodarone 200 mg tablet 200 mg PO DAILY 30 days #30 tabs 03/09/23 06/04/23 06/04/23 Rx
clopidogrel 75 mg tablet 75 mg PO DAILY #30 tabs 03/09/23 06/04/23 06/04/23 Rx
metoprolol succinate 25 mg 25 mg PO BID Blood pressure 30 03/09/23 06/04/23 06/04/23 Rx
tablet,extended release 24 hr days #60 tabs
ferrous sulfate 325 mg (65 mg 325 mg PO NOON Supplement 04/12/23 06/04/23 06/03/23 History
iron) tablet (Iron (ferrous
sulfate))
fluticasone propionate 50 1 spray intranasal DAILY Allergies 04/12/23 06/04/23 06/03/23 History
mcg/actuation nasal
spray,suspension
sertraline 50 mg tablet 75 mg PO DAILY Depression 04/12/23 06/04/23 06/04/23 History
aspirin 81 mg tablet,delayed 81 mg PO DAILY Blood Clot 06/04/23 06/04/23 06/04/23 History
release Prevention/Tx
famotidine 40 mg tablet 40 mg PO HS Gastrointestinal Issue 06/04/23 06/04/23 06/03/23 History
levothyroxine 50 mcg tablet 50 mcg PO DAILY Thyroid 06/04/23 06/04/23 06/04/23 History
lisinopril 2.5 mg tablet 2.5 mg PO HS Blood Pressure 06/04/23 06/04/23 06/03/23 History
metformin 500 mg tablet 500 mg PO BIDWMEAL Diabetes 06/04/23 06/04/23 06/04/23 History
Review of Systems
-
All other systems: Negative unless noted
Vitals / Labs / Diagnostic Testing
Vital Signs
Temp Pulse Resp BP Pulse Ox
97.9 F 64 18 151/82 94
06/04/23 14:47 06/04/23 14:47 06/04/23 14:47 06/04/23 14:47 06/04/23 14:47
Lab Data
06/04/23 09:25
06/04/23 09:25
Diagnostic Testing:
Physical Exam
-
HEENT: Normocephalic, Anicteric and Other (Large neck)
Cardiovascular: S1/S2, Regular Rhythm, Murmur (n), Rub and Peripheral Edema (tr)
Respiratory: Wheeze (n), Rales (few at base), Rhonchi (n) and Non-Labored Respirations
GI: Soft, Non Distended (Obese) and Non Tender
Neurology: Awake, Alert, Oriented and No Motor Deficits (Able to sit up without assistance)
Skin: Good Color
General: Comfortable
Assessment
-
57-year-old male with history of coronary disease with bypass surgery 2003, recent thoracic aortic dissection repair January 2023 complicated by pneumonia which required second course of antibiotics March 2023 as outpatient. He started cardiac
rehab 2 weeks ago, noted increased shortness of breath over the past few days, PND, weight gain. He is now admitted for respiratory insufficiency. We are asked to comment on his pulmonary process
Acute respiratory insufficiency
Tachypnea
Suspected congestive heart failure, acute
12 pound weight gain, PND, orthopnea
History of atrial fibrillation
Amiodarone therapy, off anticoagulation
Linq monitor
History of TIA/stroke
Cardiomyopathy, EF 35%
RV pressure overload
PA pressure 46
Moderate MR
Conditions present prior to admission
Chronic right lower lobe loculated chronic pneumothorax vs bulli
Present since 2007 (per my rev)
Nosocomial pneumonia post aortic dissection repair, February 2023
Required second course of antibiotics March 2023
Coronary disease with bypass surgery 2003
Aortic arch dissection repair, emergent
[place] 01/28/2023 ([facility]) hypertension/hyperlipidemia
Severe sleep apnea, awaiting CPAP therapy
Total index 25.7, supine index greater than 80
Nocturnal hypoxia
Was on CPAP in the past
Diabetes
Hypertension/hyperlipidemia
Plan/recommendations
At this time, patient appears to be improved following diuresis
Clinical presentation suggest volume overload with PND, orthopnea, weight gain followed by improvement with Lasix therapy
CT chest with bilateral pleural effusions. I cannot appreciate any obvious focal pneumonia
Chronic right lower lobe loculated pneumothorax versus bullae. This is been present since 2007 per my review
Worsening cardiomyopathy with valvular disease noted
It is also noted that patient had a recent home sleep study evaluation with severe sleep apnea supine index greater than 80
He is awaiting CPAP set up. Apparently does not qualify for BiPAP titration as he needs to fail CPAP prior to this step
Moving forward
Continue with management per cardiology
Remains on amiodarone. Linq monitor without any obvious arrhythmias
Patient will require empiric CPAP therapy to be set up. Will start with auto CPAP, and then proceed towards BiPAP as indicated
This is in the process of being set up as outpatient to our office
Reviewed at length with patient dietary discretion, importance for treating underlying sleep apnea given cardiac comorbidities
Lastly, cannot explain night sweats although patient is on amiodarone therapy
Encouraged him to discuss this with his primary physician, security systems engineer
We will follow
[2023-06-04 17:30] LABS: Procalcitonin < 0.05 ng/ml (0.0-0.25)
[2023-06-04 17:31] LABS: Troponin I 0.013 ng/ml
[2023-06-04 17:51] LABS: TSH Reflex To Free T4 4.15 uIU/ml (0.47-4.68)
[2023-06-04] MEDS: TOPROL XL 25 MG PO (20:27)
[2023-06-04 22:23] LABS: Glucose - Point of Care 119 mg/dl (70-99)
[2023-06-04] MEDS: PEPCID 40 MG PO (22:24)
[2023-06-04] MEDS: ZESTRIL 5 MG PO (22:24)
[2023-06-05] VITALS (8 sets, daily range): BP systolic 125–142; BP diastolic 70–86; PULSE 66; O2SAT 98; BMI 35.6; BMI 35.2
[2023-06-05 00:13] LABS: Troponin I 0.014 ng/ml
[2023-06-05] MEDS: SYNTHROID 50 MCG PO (06:03)
[2023-06-05] MEDS: LIPITOR 80 MG PO (07:30)
[2023-06-05] MEDS: ASPIR LOW (ENTERIC COATED) 81 MG PO (07:30)
[2023-06-05] MEDS: PLAVIX 75 MG PO (07:30)
[2023-06-05] MEDS: ZOLOFT 75 MG PO (07:30)
[2023-06-05] MEDS: LASIX 40 MG IV (07:31)
[2023-06-05] MEDS: TOPROL XL 25 MG PO ×2 (07:31→20:15)
[2023-06-05] MEDS: PACERONE 200 MG PO (07:31)
[2023-06-05 07:35] LABS: % Basophils 0.7 % (0-2); % Eosinophils 3.7 % (0-6); % Immature Granulocytes 0.3 % (0-0.5); % Lymphocytes 15.8 % (20.5-51.1); % Monocytes 8.1 % (1.7-9.3); % Neutrophils 71.4 % (42.2-75.2); Absolute Basophils 0.1 10^3/uL (0-0.2); Absolute Eosinophils 0.3 10^3/uL (0-0.7); Absolute Lymphocytes 1.4 10^3/uL (1.2-3.4); Absolute Monocytes 0.7 10^3/uL (0.1-0.6); Absolute Neutrophils 6.2 10^3/uL (1.4-6.5); Hematocrit 33.7 % (39.0-52.0); Hemoglobin 10.9 g/dL (13.0-18.0); Mean Corp Hgb Conc. 32.3 g/dL (33.0-37.0); Mean Corpuscular Volume 83.4 fL (80.0-94.0); Mean Platelet Volume 9.4 fL (7.4-10.4); Nucleated Red Blood Cells % 0 % (-); Platelet Count 348 10^3/uL (130-400); Red Blood Cell Count 4.04 10^6/uL (4.70-6.10); Red Cell Dist. Width 15.2 % (11.5-14.5); White Blood Cell Count 8.7 10^3/uL (4.8-10.8)
[2023-06-05 07:48] LABS: Glucose - Point of Care 115 mg/dl (70-99)
[2023-06-05 08:00] LABS: Troponin I 0.012 ng/ml
[2023-06-05 08:25] LABS: ALT (SGPT) 33 U/L (0-50); AST (SGOT) 26 U/L (17-59); Albumin 3.6 g/dl (3.5-5.0); Alkaline Phosphatase 104 U/L (38-126); Blood Urea Nitrogen 15 mg/dl (9-20); Carbon Dioxide 28 mmol/L (22-30); Chloride 102 mmol/L (98-107); Estimated Creatinine Clearance > 125 ml/min; Glucose 102 mg/dl (70-99); HDL Cholesterol 41 mg/dl; LDL Cholesterol, Calculated 49 mg/dl; Potassium 3.9 mmol/L (3.5-5.1); Sodium 135 mmol/L (135-145); Total Bilirubin 0.5 mg/dl (0.2-1.3); Total Cholesterol 106 mg/dl (50-199); Total Protein 6.7 g/dl (6.3-8.2); Triglyceride 81 mg/dl (10-149); Very Low Density Lipoprotein 16 mg/dl (0-30); eGFR > 60.00
[2023-06-05 08:56] LABS: CRP, Highly Sensitive 8.78 mg/L
[2023-06-05 09:22] LABS: Glycohemoglobin (HgbA1c) 6.3 % (4.0-5.6)
--- NOTE | 2023-06-05 09:56 | W.PN.PUL3 ---
Today's Communication / Plan
-
Continue amiodarone per cardiology
Cardiac management for cardiomyopathy, valvular disease, heart failure
Outpatient CPAP titration study set up next week
Patient refusing full facemask in-house
Reviewed at length risks and ramifications of untreated sleep apnea given his cardiac morbidities. He understands
We will sign off. Please call with questions
Assessment
-
57-year-old male with history of coronary disease with bypass surgery 2003, recent thoracic aortic dissection repair January 2023 complicated by pneumonia which required second course of antibiotics March 2023 as outpatient. He started cardiac
rehab 2 weeks ago, noted increased shortness of breath over the past few days, PND, weight gain. He is now admitted for respiratory insufficiency. We are asked to comment on his pulmonary process
Acute respiratory insufficiency
Tachypnea
Suspected congestive heart failure, acute
12 pound weight gain, PND, orthopnea
History of atrial fibrillation
Amiodarone therapy, off anticoagulation
Linq monitor
History of TIA/stroke
Cardiomyopathy, EF 35%
RV pressure overload
PA pressure 46
Moderate MR
Conditions present prior to admission
Chronic right lower lobe loculated chronic pneumothorax vs bulli
Present since 2007 (per my rev)
Nosocomial pneumonia post aortic dissection repair, February 2023
Required second course of antibiotics March 2023
Coronary disease with bypass surgery 2003
Aortic arch dissection repair, emergent
[place] 01/28/2023 ([facility]) hypertension/hyperlipidemia
Severe sleep apnea, awaiting CPAP therapy
Total index 25.7, supine index greater than 80
Nocturnal hypoxia
Was on CPAP in the past
Diabetes
Hypertension/hyperlipidemia
Plan/recommendations
At this time, patient appears to be improved following diuresis
Chest exam is clear, decreased breath sounds
PND, orthopnea improved
Negative fluid status noted
Clinical presentation suggest volume overload with PND, orthopnea, weight gain followed by improvement with Lasix therapy
CT chest with bilateral pleural effusions. I cannot appreciate any obvious focal pneumonia
Chronic right lower lobe loculated pneumothorax versus bullae. This is been present since 2007 per my review
Worsening cardiomyopathy with valvular disease noted per echo
It is also noted that patient had a recent home sleep study evaluation with severe sleep apnea supine index greater than 80
He is awaiting CPAP set up. Apparently does not qualify for BiPAP titration as he needs to fail CPAP prior to this step
Moving forward
Continue with management per cardiology
Remains on amiodarone. Linq monitor without any obvious arrhythmias
There does not appear to be any evidence of amiodarone toxicity. Continue therapy per cardiology
Will need continued follow-up as outpatient
Patient will require empiric CPAP therapy to be set up. Patient does not want to try CPAP while on house. He only wants to try nasal pillows or nasal mask
He is set up for titration study next week. Will follow-up in the sleep clinic thereafter
Reviewed at length with patient dietary discretion, importance for treating underlying sleep apnea given cardiac comorbidities
Lastly, cannot explain night sweats although patient is on amiodarone therapy
Encouraged him to discuss this with his primary physician, house calls nurse practitioner
We will sign off. Pulmonary follow-up information left in chart
Please call with questions
Subjective Data
-
Date of Service:
Date of Service: June 05, 2023
Subjective:
Patient is feeling much improved. Had no issues with sleeping last night. Denies PND, orthopnea, cough, chest pain. Sitting in chair. Appears to be in good spirits
Objective Data
Data Reviewed
Vital Signs / I&O / Oxygen:
Vital Signs
Temp Pulse Resp BP Pulse Ox
98 F 64 16 142/75 91
06/05/23 07:59 06/05/23 07:59 06/05/23 07:59 06/05/23 07:59 06/05/23 07:59
Intake and Output
06/04/23 06/05/23 06/06/23
06:59 06:59 06:59
Intake Total 1000 / 1000
Output Total 1500 / 1500
Balance -500 / -500
SaO2 91
Nasal Cannula flow liters per 2
minute
Physical Exam
General: Comfortable
HEENT: Normocephalic and Anicteric
Cardiovascular: S1-S2, Irregular Rhythm, Murmur (2/6), Rub (n), Peripheral Edema (n) and Calf Tenderness (n)
Respiratory: Wheeze (n), Crackles (n), Rhonchi (n) and Other (Decreased at base)
GI: Soft, Non Distended (Obese) and Non Tender
Neurology: Awake, Alert and No Motor Deficits
Skin: Cyanosis (n), Jaundice (n) and Rash (n)
Labs/Micro/Reports
Lab Data
06/05/23 07:27
06/05/23 07:27
[2023-06-05 11:47] LABS: Glucose - Point of Care 115 mg/dl (70-99)
[2023-06-05] MEDS: FEOSOL 325 MG PO (12:36)
--- NOTE | 2023-06-05 13:12 | W.PN.CARDCBS ---
Addendum entered and electronically signed by Luis Fernando Sarkar MD 06/05/23 20:24:
Allergies: Morphine and quinolone
Outpatient meds: Amiodarone, aspirin 1 g a day, atorvastatin 80 mg a day, clopidogrel 75 mg a day, famotidine, lisinopril 2.5 mg a day, metformin 500 twice daily, metoprolol succinate 25 twice daily, sertraline
Current medications: Amiodarone 200 mg a day, aspirin 81, clopidogrel 75 daily atorvastatin 80 mg daily, metoprolol ER 25 twice daily, sertraline, furosemide 40 mg daily, Jardiance, just added, lisinopril 5 mg a day
PMH/PSH/SH/FH: Reviewed review of systems: Negative except as above
131/72, pulse 66 weight is 114.5 kg, down 1 kg
No distress, sitting in chair, head neck exam unremarkable lungs are clear, regular rate and rhythm, mitral regurgitation murmur no JVD okay abdomen benign, extremities 1+ edema
Echo: EF 35-40%, dilated RV, dilated left atrium, moderate MR, mild TR, pulmonary artery pressure 46 mmHg, thoracic aorta is 4.6 cm
BUN/creatinine 15 and 0.8, potassium 3.9
Impression:
Acute HFrEF
Pleural effusions R>L
CAD
CABG x2 (LEACH - LAD, free radial - PDA) 2003
stable coronary disease with patent grafts by cath 11/18/2018h/o Type A aortic dissection 01/28/2023
s/p redo sternotomy, AV resuspension, ascending aorta replacement, total aortic arch with Thora flex graft at [facility], Dr. Rene Diaz 01/28/23
Postoperative course complicated by: respiratory insufficiency secondary to Klebsiella pneumonia, mechanical ventilation until postop day #5, requiring pressor and inotropic support, Paroxysmal atrial fibrillation requiring multiple cardioversions,
acute CHF, SHAKA, post op delirium, dysphagia requiring temporary DHT s/p vocal cord injection 02/20/23Paroxysmal atrial fibrillation
Linq monitor implanted 04/12/2023
Not chronically anticoagulated due to h/o hemoptysis
Chronic amiodarone therapyh/o L CVAs 03/2017
TIA 03/04/17
HTN
HLD
DM2
LOLY
Plan:
His volume status looks reasonable at this time. Probably transition to oral furosemide tomorrow.
Agree with the addition of Jardiance.
Will add spironolactone 12.5 mg daily.
As outpatient, transition MARLIN inhibitor to Entresto.
LV function was mildly reduced at [place], is slightly lower now. I favor optimization of volume status GDMT, with outpatient ischemic eval, presumably cardiac catheterization..
Telemetry reviewed, in sinus rhythm, continue amiodarone, continue aspirin and Plavix, patient with Linq monitor
Original Note:
Today's Communication / Plan
-
continue IV lasix, consider increasing dosing to BID
add jardiance
consider for cardiac cath inpatient vs outpatient given new reduction in EF post type A dissection repair
Impression / Plan
-
PCP: Dr. Greg Trejo
Broker Assistant: Dr. Veloz
Impression:
Presented with SOB
Acute HFrEF
Pleural effusions R>L
CAD
CABG x2 (LEACH - LAD, free radial - PDA) 2003
stable coronary disease with patent grafts by cath 11/18/2018
h/o Type A aortic dissection 01/28/2023
s/p redo sternotomy, AV resuspension, ascending aorta replacement, total aortic arch with Thora flex graft at [facility], Dr. Rene Diaz 01/28/23
Postoperative course complicated by: respiratory insufficiency secondary to Klebsiella pneumonia, mechanical ventilation until postop day #5, requiring pressor and inotropic support, Paroxysmal atrial fibrillation requiring multiple cardioversions,
acute CHF, SHAKA, post op delirium, dysphagia requiring temporary DHT s/p vocal cord injection 02/20/23
Paroxysmal atrial fibrillation
Linq monitor implanted 04/12/2023
Not chronically anticoagulated due to h/o hemoptysis
Chronic amiodarone therapy
h/o L CVAs 03/2017
TIA 03/04/17
HTN
HLD
DM2
LOLY
Echo 07/25/2021: EF 59%, mild cLVH, mild MR, mildly dilated RV, mildly dilated ascending aorta 4.0cm
Post-Op LAURA 01/28/2023 @[facility]: EF 40-45%, moderate RV dysfunction, inferior septal hypokinesis, trace TR
Echo 06/04/2023: EF 35 to 40%, globally hypokinetic ventricle, flattening of interventricular septum consistent with RV pressure and volume overload, dilated RV, severely dilated left atrium, moderate MR, mild TR, PAP 46 mmHg, aortic root measures
4.2 cm at sinus of Valsalva and 4.6 cm and ascending portion of thoracic aorta
Plan:
-He presented with shortness of breath while at cardiac rehab
-In acute heart failure. proBNP 8280. Imaging with bilateral pleural effusions noted. Noted improvement on IV Lasix, now off supp O2. consider increasing dose to 40 mg IV twice daily
-He was not on diuretic therapy as an outpatient. He did require diuresis in postoperative setting after aortic dissection repair at [facility]
-Creatinine stable
-CHF education
-Echo with EF 35 to 40%. Was noted by postop LAURA 01/28 to have EF of 40 to 45%. Would consider for cardiac cath for further assessment inpatient versus as outpatient. Troponins negative
-Continue aspirin, Plavix, and atorvastatin 80mg daily.
-Continue Toprol and lisinopril. Will plan to add Jardiance 10 mg daily. He was previously on spironolactone, however this was stopped post dissection repair due to SHAKA
-tele overnight reviewed, SR with PVCs. He has linq monitor in place w/ no afib noted. Continues on amiodarone 200mg daily.
-Not anticoagulated chronically due to h/o severe hemoptysis post op.
-TSH 4.15
HPI: Juan M is a 57 year old male with PMH of CAD s/p CABG, type A aortic dissection s/p repair, paroxysmal atrial fibrillation, CVA, HTN, HLD, DM2, and LOLY who presented to [facility] for evaluation of SOB. He notes that for the past few days he has had
some increased SOB. He was seen by his PCP who felt that anxiety may be contributing to his symptoms and he was started on medication for anxiety. Last night he then states he woke up in the middle of the night, gasping for air. He notes this was
uncommon for him, and he was unable to fall back asleep. He thought he would try to participate in cardiac rehab today, however when doing his first exercise, he became extremely SOB and knew he would not be able to continue exercising. He was sent
to the ER for further evaluation and was found to have evidence of acute heart failure with elevated proBNP and pleural effusions. He was given a dose of IV lasix in the ER and notes his breathing has improved and he has been responding quickly to
the lasix. He has been admitted for further evaluation and treatment and cardiology consulted for evaluation. He notes he has had increased abdominal bloating and mild LE edema. Has not noticed weight gain, however weight recorded in ER is 14lbs
higher than last OV weight 03/2023. Denies any chest pain or palpitations.
Progress Note - Broker Assistant
Subjective
Date of Service: June 05, 2023
reports improvement in breathing from admission
Objective
Labs:
06/05/23 07:27
06/05/23 07:
Labs
Hgb 10.9 g/dL (13.0-18.0) L 06/05/23 07:27
Hct 33.7 % (39.0-52.0) L 06/05/23 07:27
Plt Count 348 10^3/uL (130-400) 06/05/23 07:27
Sodium 135 mmol/L (135-145) 06/05/23 07:27
Potassium 3.9 mmol/L (3.5-5.1) 06/05/23 07:
BUN 15 mg/dl (9-20) 06/05/23 07:27
Creatinine 0.8 mg/dL (0.7-1.3) 06/05/23 07:27
Glucose 102 mg/dl (70-99) H 06/05/23 07:27
Troponins
06/04/23 06/04/23 06/04/23
09:25 16:47 23:33
Troponin I < 0.012 0.013 0.014
06/05/23
07:27
Troponin I 0.012
Vital Signs and I&O:
Vital Signs
Temp Pulse Resp BP Pulse Ox
98 F 66 16 131/72 98
06/05/23 11:24 06/05/23 11:24 06/05/23 11:24 06/05/23 11:24 06/05/23 11:24
Vital Signs
Temp Pulse Resp BP Pulse Ox
98 F 66 16 131/72 98
06/05/23 11:24 06/05/23 11:24 06/05/23 11:24 06/05/23 11:24 06/05/23 11:24
Intake & Output
06/03/23 06/04/23 06/05/23 06/06/23
07:59 07:59 07:59 07:59
Intake Total 1000 / 1000
Output Total 1500 / 1500
Balance -500 / -500
Physical Exam
Physical Exam
GEN: No distress, awake, alert, oriented x3. sitting in chair
HEENT: supple, anicteric, mmm, eomi
LUNGS: decreased BS at bases, no wheezes
CV: Reg, S1/S2, 2/6 murmur
ABD: soft, BS+, NT/ND
EXT: No cyanosis, clubbing. trace edema of B/L LE
NEURO: Gross non-focal
SKIN: Warm, pink, dry. No rash. Sternotomy scar
--- NOTE | 2023-06-05 14:16 | W.PN.HOSP.TC ---
Today's Communication/Plan
-
CW diuresis IV
Assessment / Plan
Assessment / Plan
#Acute CHF with reduced EF
Bilateral pleural effusions right greater than left
Echo 06/03 shows EF of 35 to 40% with global hypokinesis of the left ventricle. Dilated RV noted. Increased RV pressure and volume overload noted on the echo. Moderate MR noted.
Improved with diuresis so far.
Appreciate cardiology input. Continue with Lasix for volume management. Start on GDMT for cardiomyopathy.
#S/p thoracic dissection repair at [facility] 01/28/2023
#Chronic right lower lobe loculated chronic pneumothorax vs bulli
Present since 2007 Per pulmonary
#Severe sleep apnea, awaiting CPAP therapy
Was on CPAP in the past.Follow with pulmonary
#Known right upper lobe pulmonary nodules
#Severe small right upper lobe and right lower lobe pulmonary nodules - pulm input noted .Follow with pulm as OP.
#Klebsiella pneumonia required inotrope and vasopressor pressure support with 7-day course cefepime he had multiple bronchoscopies was extubated 02/02/2023
#CAD status post CABG jan 28 2023 [facility]
-Continue aspirin, atorvastatin 80 mg daily, Plavix 75 mg daily, beta-libertad
EKG sinus rhythm with PACs 66 bpm, QTc 486 MS
#A-fib with RVR during aortic dissection repair required multiple cardioversions
#Linq device placed March 2023. In SR today
- continue amiodarone, asa
-cardiology to follow
#HTN�benign
-Continue metoprolol succinate 25 mg twice daily, lisinopril 2.5 mg at bedtime
#DM2
-Hold metformin x48 hours as patient got IV contrast
-Accu-Cheks with SSI, check HgbA1c
#CVA 2019
Had right-sided weakness that resolved
-Continue aspirin, Plavix, statin
#Hypothyroidism
-Continue levothyroxine 50 mcg
#Gastric bypass Hx
#GERD
-Continue Pepcid 40 mg at bedtime
#Depression/anxiety
Continue Zoloft 75 mg daily
#Obesity due to excess calorie consumption�BMI 36.9 kg
#History of gastric bypass
Low-fat diet, 1800 ADA
DVT prophylaxis
Scd
Full code
Anticipated Discharge: > 48 hours
Subjective/Interval History
-
Date of Service: June 05, 2023
Improved breathing. Denies any chest pain. No palpitations. Denies any cough.
Objective Data
-
Labs:
Laboratory Results
06/05/23
07:27
WBC 8.7
Hgb 10.9 L
Hct 33.7 L
Plt Count 348
Sodium 135
Potassium 3.9
Chloride 102
Carbon Dioxide 28
BUN 15
Creatinine 0.8
Glucose 102 H
Calcium 9.0
Total Bilirubin 0.5
AST 26
ALT 33
Alkaline Phosphatase 104
Vital Signs:
Vital Signs
Temp Pulse Resp BP Pulse Ox
98 F 66 16 131/72 98
06/05/23 11:24 06/05/23 11:24 06/05/23 11:24 06/05/23 11:24 06/05/23 11:24
I&O
06/04/23 06/05/23 06/06/23
06:59 06:59 06:59
Intake Total 1000 / 1000
Output Total 1500 / 1500
Balance -500 / -500
Review of Systems
-
Constitutional: Denies Fever
EENT: Denies Sore Throat
Abdomen/GI: Denies Abdominal Pain, Nausea or Vomiting
Neuro: Denies Dizzy
Physical Exam
-
General: No Apparent Distress
HEENT: Moist Mucous Membranes
Respiratory: Crackles (Basilar area more so on right side) and Non Labored Respirations; Negative Wheezes or Accessory Resp Muscle Use
Cardiac: Regular Rhythm and S1/S2
GI: Soft
Neuro: AO x 3
Data Reviewed
-
Medical Tests (Nuc Med, Echo etc): Report Reviewed by me (ECHO)
Labs: Labs Reviewed by me
[2023-06-05 16:24] LABS: Glucose - Point of Care 122 mg/dl (70-99)
[2023-06-05] MEDS: JARDIANCE 10 MG PO (16:27)
[2023-06-05 22:10] LABS: Glucose - Point of Care 98 mg/dl (70-99)
[2023-06-05] MEDS: ZESTRIL 5 MG PO (22:16)
[2023-06-05] MEDS: PEPCID 40 MG PO (22:16)
[2023-06-06 03:55] VITALS: BP 100/45
[2023-06-06 06:00] VITALS: BMI 34.8
[2023-06-06] MEDS: SYNTHROID 50 MCG PO (06:11)
[2023-06-06 07:14] LABS: ALT (SGPT) 29 U/L (0-50); AST (SGOT) 22 U/L (17-59); Albumin 3.6 g/dl (3.5-5.0); Alkaline Phosphatase 100 U/L (38-126); Blood Urea Nitrogen 13 mg/dl (9-20); Calcium 9.1 mg/dl (8.4-10.2); Carbon Dioxide 28 mmol/L (22-30); Chloride 103 mmol/L (98-107); Estimated Creatinine Clearance > 125 ml/min; Glucose 100 mg/dl (70-99); Potassium 3.7 mmol/L (3.5-5.1); Sodium 136 mmol/L (135-145); Total Bilirubin 0.6 mg/dl (0.2-1.3); Total Protein 6.6 g/dl (6.3-8.2); eGFR > 60.00
[2023-06-06] MEDS: PLAVIX 75 MG PO (07:30)
[2023-06-06] MEDS: JARDIANCE 10 MG PO (07:30)
[2023-06-06] MEDS: ALDACTONE 12.5 MG PO (07:30)
[2023-06-06] MEDS: ASPIR LOW (ENTERIC COATED) 81 MG PO (07:30)
[2023-06-06] MEDS: PACERONE 200 MG PO (07:31)
[2023-06-06] MEDS: LASIX 40 MG IV (07:31)
[2023-06-06] MEDS: ZOLOFT 75 MG PO (07:31)
[2023-06-06] MEDS: LIPITOR 80 MG PO (07:31)
[2023-06-06] MEDS: TOPROL XL 25 MG PO (07:33)
[2023-06-06 07:42] LABS: Glucose - Point of Care 120 mg/dl (70-99)
[2023-06-06 08:09] VITALS: BP 139/75
[2023-06-06 11:13] VITALS: BP 118/68
[2023-06-06 12:03] LABS: Glucose - Point of Care 105 mg/dl (70-99)
[2023-06-06] MEDS: FEOSOL 325 MG PO (12:04)
--- NOTE | 2023-06-06 13:02 | W.PN.HOSP.TC ---
Today's Communication/Plan
-
dc
Assessment / Plan
Assessment / Plan
#Acute CHF with reduced EF
Bilateral pleural effusions right greater than left
Echo 06/03 shows EF of 35 to 40% with global hypokinesis of the left ventricle. Dilated RV noted. Increased RV pressure and volume overload noted on the echo. Moderate MR noted.
Improved with diuresis so far.WT 249lb today.
Appreciate cardiology input. Continue with Lasix for volume management. cw GDMT for cardiomyopathy.
#S/p thoracic dissection repair at [facility] 01/28/2023
#Chronic right lower lobe loculated chronic pneumothorax vs bulli
Present since 2007 Per pulmonary
#Severe sleep apnea, awaiting CPAP therapy
Was on CPAP in the past.Follow with pulmonary
#Known right upper lobe pulmonary nodules
#Severe small right upper lobe and right lower lobe pulmonary nodules - pulm input noted .Follow with pulm as OP.
#Klebsiella pneumonia required inotrope and vasopressor pressure support with 7-day course cefepime he had multiple bronchoscopies was extubated 02/02/2023
#CAD status post CABG jan 28 2023 [facility]
-Continue aspirin, atorvastatin 80 mg daily, Plavix 75 mg daily, beta-libertad
EKG sinus rhythm with PACs 66 bpm, QTc 486 MS
#A-fib with RVR during aortic dissection repair required multiple cardioversions
#Linq device placed March 2023. In SR on monitor
- continue amiodarone, asa
-cardiology to follow
#HTN�benign
-Continue metoprolol succinate 25 mg twice daily, lisinopril 2.5 mg at bedtime
#DM2
-Hold metformin x48 hours as patient got IV contrast
-Accu-Cheks with SSI, check HgbA1c
#CVA 2019
Had right-sided weakness that resolved
-Continue aspirin, Plavix, statin
#Hypothyroidism
-Continue levothyroxine 50 mcg
#Gastric bypass Hx
#GERD
-Continue Pepcid 40 mg at bedtime
#Depression/anxiety
Continue Zoloft 75 mg daily
#Obesity due to excess calorie consumption�BMI 36.9 kg
#History of gastric bypass
Low-fat diet, 1800 ADA
DVT prophylaxis
Scd
DW Dr Marie, maureen to tn from cardiology standpoint.
Pt has F/U with cards on 06/13/23 which i advised him to keep.
More than 30 minutes spent in discharge including
Final examination of the patient
Summarizing hospital stay
Instructions for continuing care to all relevant caregivers
Preparation of discharge records, prescriptions, and referral forms
Total time spent (in minutes): 32
Anticipated Discharge: Today
Subjective/Interval History
-
Date of Service: June 06, 2023
Resolved symptoms of shortness of breath. Patient pretty good today. No chest pain.
Objective Data
-
Labs:
Laboratory Results
06/06/23
06:38
Sodium 136
Potassium 3.7
Chloride 103
Carbon Dioxide 28
BUN 13
Creatinine 0.8
Glucose 100 H
Calcium 9.1
Total Bilirubin 0.6
AST 22
ALT 29
Alkaline Phosphatase 100
Vital Signs:
Vital Signs
Temp Pulse Resp BP Pulse Ox
98.6 F 65 16 118/68 96
06/06/23 11:13 06/06/23 11:13 06/06/23 11:13 06/06/23 11:13 06/06/23 11:13
I&O
06/05/23 06/06/23 06/07/23
06:59 06:59 06:59
Intake Total 1000 / 1000 400 / 400
Output Total 1500 / 1500 2 / 2
Balance -500 / -500 398 / 398
Review of Systems
-
Constitutional: Denies Fever
Respiratory: Reports Trouble Breathing (much improved)
Cardiac: Denies Chest Pain or Palpitations
Abdomen/GI: Denies Abdominal Pain, Nausea or Vomiting
Neuro: Denies Dizzy
Physical Exam
-
General: No Apparent Distress
HEENT: Moist Mucous Membranes
Respiratory: Clear to Auscultation (today)
Cardiac: Regular Rhythm and S1/S2
GI: Soft
Neuro: AO x 3
Data Reviewed
-
Labs: Labs Reviewed by me
--- NOTE | 2023-06-06 13:31 | W.PN.CARDCBS ---
Addendum entered and electronically signed by Agustin Marie DO 06/06/23 16:25:
I saw and examined the patient.
The Sheet Metal Smith's note was reviewed and I agree with the note.
Comment:
Plan:
Transition to Lasix 40 mg PO daily
Cont Toprol and ACEI
Jardiance and Aldactone were added earlier this admit
He will be reevaluated as outpt for consideration for ischemic eval pending his response to medical therapy. Consider repeat echo on GDMT
His rhythm is monitored through his LINQ. He continues with amiodarone.
Outpt cardiac follow up arranged
Original Note:
Today's Communication / Plan
-
po lasix 40mg daily
will discuss cardiac catheterization at follow up given EF reduced
continue toprol, lisinopril. jardiance and low dose spironolactone added this admission
BMP in 1 week
rhythm monitoring through linq. not OAC candidate given hemoptysis
OP cardiac follow up arranged
Impression / Plan
-
PCP: Dr. Greg Trejo
[employer] Supervisor: Dr. Veloz
Impression:
Presented with SOB
Acute HFrEF
Pleural effusions R>L
CAD
CABG x2 (LEACH - LAD, free radial - PDA) 2003
stable coronary disease with patent grafts by cath 11/18/2018
h/o Type A aortic dissection 01/28/2023
s/p redo sternotomy, AV resuspension, ascending aorta replacement, total aortic arch with Thora flex graft at [facility], Dr. Rene Diaz 01/28/23
Postoperative course complicated by: respiratory insufficiency secondary to Klebsiella pneumonia, mechanical ventilation until postop day #5, requiring pressor and inotropic support, Paroxysmal atrial fibrillation requiring multiple cardioversions,
acute CHF, SHAKA, post op delirium, dysphagia requiring temporary DHT s/p vocal cord injection 02/20/23
Paroxysmal atrial fibrillation
Linq monitor implanted 04/12/2023
Not chronically anticoagulated due to h/o hemoptysis
Chronic amiodarone therapy
h/o L CVAs 03/2017
TIA 03/04/17
HTN
HLD
DM2
LOLY
Echo 07/25/2021: EF 59%, mild cLVH, mild MR, mildly dilated RV, mildly dilated ascending aorta 4.0cm
Post-Op LAURA 01/28/2023 @[facility]: EF 40-45%, moderate RV dysfunction, inferior septal hypokinesis, trace TR
Echo 06/04/2023: EF 35 to 40%, globally hypokinetic ventricle, flattening of interventricular septum consistent with RV pressure and volume overload, dilated RV, severely dilated left atrium, moderate MR, mild TR, PAP 46 mmHg, aortic root measures
4.2 cm at sinus of Valsalva and 4.6 cm and ascending portion of thoracic aorta
Plan:
-He presented with shortness of breath while at cardiac rehab
-In acute heart failure. proBNP 8280. Imaging with bilateral pleural effusions noted. Noted improvement on IV Lasix. weight continues to trend down. plan for transition to po lasix 40mg daily upon DC. was not on lasix prior to admission, but he
did require diuresis in postoperative setting after aortic dissection repair at [facility]
-Creatinine stable
-CHF education
-Echo with EF 35 to 40%. Was noted by postop LAURA 01/28 to have EF of 40 to 45%. Would consider for cardiac cath for further assessment as outpatient. Troponins negative
-Continue aspirin, Plavix, and atorvastatin 80mg daily.
-Continue Toprol and lisinopril. Jardiance 10 mg daily was added 06/04. He was previously on spironolactone, however this was stopped post dissection repair due to SHAKA. he was restarted on 12.5mg daily 06/04. will need BMP in 1 week
-tele SR with PVCs. He has linq monitor in place w/ no afib noted. Continues on amiodarone 200mg daily.
-Not anticoagulated chronically due to h/o severe hemoptysis post op.
-Op cardiac follow up arranged. plan to resume cardiac rehab next week
-for DC today
-d/w hospitalist
HPI: Juan M is a 57 year old male with PMH of CAD s/p CABG, type A aortic dissection s/p repair, paroxysmal atrial fibrillation, CVA, HTN, HLD, DM2, and LOLY who presented to [facility] for evaluation of SOB. He notes that for the past few days he has had
some increased SOB. He was seen by his PCP who felt that anxiety may be contributing to his symptoms and he was started on medication for anxiety. Last night he then states he woke up in the middle of the night, gasping for air. He notes this was
uncommon for him, and he was unable to fall back asleep. He thought he would try to participate in cardiac rehab today, however when doing his first exercise, he became extremely SOB and knew he would not be able to continue exercising. He was sent
to the ER for further evaluation and was found to have evidence of acute heart failure with elevated proBNP and pleural effusions. He was given a dose of IV lasix in the ER and notes his breathing has improved and he has been responding quickly to
the lasix. He has been admitted for further evaluation and treatment and cardiology consulted for evaluation. He notes he has had increased abdominal bloating and mild LE edema. Has not noticed weight gain, however weight recorded in ER is 14lbs
higher than last OV weight 03/2023. Denies any chest pain or palpitations.
Progress Note - [employer] Supervisor
Subjective
Date of Service: June 06, 2023
Continued improvement with diuresis. For DC today.
Objective
Labs:
06/05/23 07:27
06/06/23 06:38
Labs
Hgb 10.9 g/dL (13.0-18.0) L 06/05/23 07:27
Hct 33.7 % (39.0-52.0) L 06/05/23 07:27
Plt Count 348 10^3/uL (130-400) 04/30/24 07:27
Sodium 136 mmol/L (135-145) 06/06/23 06:38
Potassium 3.7 mmol/L (3.5-5.1) 06/06/23 06:38
BUN 13 mg/dl (9-20) 06/06/23 06:38
Creatinine 0.8 mg/dL (0.7-1.3) 06/06/23 06:38
Glucose 100 mg/dl (70-99) H 06/06/23 06:38
Troponins
06/04/23 06/04/23 06/04/23
09:25 16:47 23:33
Troponin I < 0.012 0.013 0.014
06/05/23
07:27
Troponin I 0.012
Vital Signs and I&O:
Vital Signs
Temp Pulse Resp BP Pulse Ox
98.6 F 65 16 118/68 96
06/06/23 11:13 06/06/23 11:13 06/06/23 11:13 06/06/23 11:13 06/06/23 11:13
Vital Signs
Temp Pulse Resp BP Pulse Ox
98.6 F 65 16 118/68 96
06/06/23 11:13 06/06/23 11:13 06/06/23 11:13 06/06/23 11:13 06/06/23 11:13
Intake & Output
06/04/23 06/05/23 06/06/23 06/07/23
07:59 07:59 07:59 07:59
Intake Total 1000 / 1000 400 / 400
Output Total 1500 / 1500 2 / 2
Balance -500 / -500 398 / 398
--- NOTE | 2023-06-06 13:47 | W.DS.TRANS ---
DC Summary - Phlebotomy Specialist
-
Discharge Instructions:
Sleep Apnea Risk Intermediate
Discharge Diagnosis/Procedures Acute on chronic heart failure with reduced EF
Diet 2 Gram Sodium,Low Cholesterol
Activity As tolerated
Driving Restrictions As prior to admission
Blood Work BMP in 1 week
Other Services Cardiac Rehab
Specialty Instructions Weigh Daily
Instructions: *DCA Heart Failure Instructions
Stand-Alone Forms:
Changes to Home Medications: Yes
Discharge Medications:
DC Medications w/original date entered in [facility]
atorvastatin 80 mg tablet 80 mg PO DAILY High cholesterol 12/19/19
ascorbic acid (vitamin C) 250 mg tablet 250 mg PO NOON Supplement 02/24/23
amiodarone 200 mg tablet 200 mg PO DAILY 30 days #30 tabs 03/09/23
clopidogrel 75 mg tablet 75 mg PO DAILY #30 tabs 03/09/23
metoprolol succinate 25 mg tablet,extended release 24 hr 25 mg PO BID Blood pressure 30 days #60 tabs 03/09/23
ferrous sulfate 325 mg (65 mg iron) tablet (Iron (ferrous sulfate)) 325 mg PO NOON Supplement 04/12/23
fluticasone propionate 50 mcg/actuation nasal spray,suspension 1 spray intranasal DAILY Allergies 04/12/23
sertraline 50 mg tablet 75 mg PO DAILY Depression 04/12/23
aspirin 81 mg tablet,delayed release 81 mg PO DAILY Blood Clot Prevention/Tx 06/04/23
famotidine 40 mg tablet 40 mg PO HS Gastrointestinal Issue 06/04/23
levothyroxine 50 mcg tablet 50 mcg PO DAILY Thyroid 06/04/23
metformin 500 mg tablet 500 mg PO BIDWMEAL Diabetes 06/04/23
empagliflozin 10 mg tablet (Jardiance) 10 mg PO DAILY #30 tabs 06/06/23
furosemide 40 mg tablet (Lasix) 40 mg PO DAILY #30 tabs 06/06/23
lisinopril 5 mg tablet 5 mg PO HS #30 tabs 06/06/23
spironolactone 25 mg tablet 12.5 mg (1/2 x 25 mg) PO DAILY #30 tabs 06/06/23
Home Medication Changes
Change in medication lisinopril increased to 5 mg from 2.5 mg
New medication-Lasix, spironolactone, Farxiga
Pending Results: No
== END 2023-06-06 15:04 | disposition home or self-care (01) | DRG 291 ==
LOC: 3 WEST ACU 13:16
PROVIDERS: Clinical Nurse Specialist Family Health; Nurse Practitioner; Physician Assistant; ADMITTING PHYSICIAN Internal Medicine; CONSULT PHYSICIAN Internal Medicine Critical Care Medicine; EMERGENCY PHYSICIAN Emergency Medicine; FAMILY PHYSICIAN Family Medicine; OTHER PHYSICIAN Internal Medicine Cardiovascular Disease
DX: I11.0 Hypertensive heart disease with heart failure (principal); I50.23 Acute on chronic systolic (congestive) heart failure; R06.89 Other abnormalities of breathing; E78.00 Pure hypercholesterolemia, unspecified; I25.10 Atherosclerotic heart disease of native coronary artery without angina pectoris; I48.0 Paroxysmal atrial fibrillation; E11.9 Type 2 diabetes mellitus without complications; E03.9 Hypothyroidism, unspecified; F32.A Depression, unspecified; F41.9 Anxiety disorder, unspecified; K21.9 Gastro-esophageal reflux disease without esophagitis; E66.09 Other obesity due to excess calories; Z68.36 Body mass index [BMI] 36.0-36.9, adult
CPT/HCPCS: 71046; 71275; 80053; 80061; 82962; 83036; 83880; 84145; 84443; 84484; 85025; 85379; 85652; 86141; 93005; 93306; 96374; 97161; 97166; 99285; Q9967

== ENCOUNTER 2023-06-20 08:52 | Outpatient (RCR) | payer BC, SELFPAY | END 2023-06-20 23:59 | disposition home or self-care (01) | LOC: CRHB 08:52 | PROVIDERS: ATTENDING PHYSICIAN Internal Medicine Cardiovascular Disease; FAMILY PHYSICIAN Internal Medicine | DX: I25.10 Atherosclerotic heart disease of native coronary artery without angina pectoris (principal); Z95.4 Presence of other heart-valve replacement | CPT/HCPCS: 93797; 93798 ==

== ENCOUNTER 2023-06-26 19:11 | Emergency (ER) | payer BC, SELFPAY ==
[2023-06-26 19:25] VITALS: BP 108/65
[2023-06-26 19:26] VITALS: BP 124/70
[2023-06-26 19:48] LABS: % Basophils 0.9 % (0-2); % Immature Granulocytes 0.6 % (0-0.5); % Lymphocytes 20.4 % (20.5-51.1); % Monocytes 7.8 % (1.7-9.3); % Neutrophils 67.3 % (42.2-75.2); Absolute Basophils 0.1 10^3/uL (0-0.2); Absolute Eosinophils 0.3 10^3/uL (0-0.7); Absolute Immature Granulocytes 0.1 10^3/uL (0-0.05); Absolute Monocytes 0.8 10^3/uL (0.1-0.6); Absolute Neutrophils 6.7 10^3/uL (1.4-6.5); Hematocrit 36.9 % (39.0-52.0); Hemoglobin 11.7 g/dL (13.0-18.0); Mean Corp Hgb Conc. 31.7 g/dL (33.0-37.0); Mean Corpuscular Volume 85.2 fL (80.0-94.0); Mean Platelet Volume 9.9 fL (7.4-10.4); Nucleated Red Blood Cells % 0 % (-); Platelet Count 345 10^3/uL (130-400); Red Blood Cell Count 4.33 10^6/uL (4.70-6.10); Red Cell Dist. Width 15.5 % (11.5-14.5); White Blood Cell Count 9.9 10^3/uL (4.8-10.8)
[2023-06-26 20:02] LABS: ALT (SGPT) 32 U/L (0-50); AST (SGOT) 32 U/L (17-59); Albumin 4.3 g/dl (3.5-5.0); Alkaline Phosphatase 101 U/L (38-126); Blood Urea Nitrogen 27 mg/dl (9-20); Calcium 9.7 mg/dl (8.4-10.2); Carbon Dioxide 26 mmol/L (22-30); Chloride 101 mmol/L (98-107); Glucose 145 mg/dl (70-99); Potassium 5.1 mmol/L (3.5-5.1); Sodium 138 mmol/L (135-145); Total Bilirubin 0.6 mg/dl (0.2-1.3); Total Protein 7.4 g/dl (6.3-8.2); eGFR > 60.00
[2023-06-26 20:12] LABS: Troponin I < 0.012 ng/ml
[2023-06-26 22:30] VITALS: BP 127/86
--- NOTE | 2023-06-26 22:31 | ED.GENMED ---
History of Present Illness
General
Chief Complaint: Fainting Sensation
Time Seen by Provider: 06/26/23 22:30
Travel History
Have you had any contact with someone who has COVID-19?: No
Do you have any symptoms of coronavirus? Fever > 100 degrees, chills, cough, shortness of breath, sore throat, loss of taste or smell, muscle aches, or headache?: No
History of Present Illness
History of Present Illness:
HPI: The patient has been feeling somewhat dizzy for several weeks. Tonight, he got up suddenly after not drinking much today and fell backwards. He came in here for further evaluation. He is known to Dr. Veloz. He denies any chest pain.
EXAM:
GENERAL: Well appearing in no distress
HEENT: Moist oral mucosa
CARDIOVASCULAR: No murmurs, normal heart rate, regular rhythm, No chest wall tenderness, I had the patient get up slowly from a seated position and his heart rate remained in the 90s and he was not symptomatic
PULMONARY: No respiratory distress, breath sounds are clear and equal
ABDOMEN: Soft with no peritoneal signs, no tenderness
NEUROLOGIC: Excellent strength all extremities, no coordination deficits
PSYCHIATRIC: Appropriate mental status, normal insight and judgement
EXTREMITIES: Nontender, no edema, moves all extremities equally
SKIN: No rash, no lesions
TIME OF INITIAL ENCOUNTER: 10:30 PM
NUMBER AND COMPLEXITY OF PROBLEMS ADDRESSED AT THE ENCOUNTER
� Chronic conditions affecting care: Aortic stenosis, atrial fibrillation, CAD/CABG, hyperlipidemia, high blood pressure, diverticular disease
� Acute Exacerbation and/or Progression of Chronic Illness: This is an acute but recurring problem
� Differential Diagnosis includes: Dehydration, ACS very unlikely, SHAKA
AMOUNT AND/OR COMPLEXITY OF DATA TO BE REVIEWED AND ANALYZED
� I performed an independent evaluation of and my interpretation is:
EKG: Sinus 67, left bundle branch block, PVCs
CT:
X-rays: Chest x-ray shows small right pleural effusion with associated atelectasis
Laboratory Studies: Hemoglobin 11.7 which is similar to what it has been this past year, this is a drop compared to 2022, renal function is normal, troponin negative
Other:
� Review of other/old records: I reviewed old records and the patient was recently admitted with pneumonia
� Clinical information was obtained by an independent historian: I spoke to at bedside
� Prescriptions/Medications Considered but not given: Considered IV fluids however the patient feels that he can just use oral rehydration at home
� Further testing considered but not performed:
RISK OF COMPLICATIONS AND/OR MORBIDITY OR MORTALITY OF PATIENT MANAGEMENT
� Social determinants of health affecting care: Lives at home
� Discussion with other providers:
� Escalation of care including admission/observation vs risk of discharge considered: The patient is well-appearing and 'feels great'. He has no significant symptoms currently. His vital signs are unremarkable. He got up
slowly and was not necessarily orthostatic. He states he will drink additional fluid at home. He is on a diuretic. He will also follow Dr. Veloz.
Past History
Past History
ED Past Medical History: CAD, HTN, Hypercholesterolemia, NIDDM, Psychiatric (Anxiety) and Other (Thoracic aneurysm that they are watching, Kidney stones)
ED Past Surgical History: Appendectomy, Cardiac and Other (gastric bypass, Hernia repair left sided)
Social History
Tobacco: Non-smoker
Alcohol: None
Drug: None
Personal:
Living: with family
Employment: Employed
Family History
Family History: CAD and Other
Phy Exam
Physical Exam
Physical Exam:
See HPI
Course
Orders/Labs/Results
Orders:
Orders
06/26/23 19:27
Electrocardiogram (*1) Urgent
Reason for Study: Chest Pain
Cardiac Monitoring- Treatment ONCE
EKG- Treatment ONCE
IV Insert/Care/Rem.- Treatment PRN
Chest [CR Chest - 2 Views ] Urgent
Comment:
Reason For Exam: syncope/CP
O2 Therapy [RESP] Urgent
Titrate/Wean O2 to maintain O2 sat greater than (%): 90
Special Instructions: Maintain sats >/=90%
Pulse Ox/spot Check [RESP] Urgent
Quantity: 1
Special Instructions: ON ROOM AIR
06/26/23 19:33
Complete Blood Count/With Diff Urgent
Comprehensive Metabolic Panel Urgent
Troponin I Urgent
Abnormal Lab Results
06/26/23
19:33
RBC 4.33 L 10^6/uL
(4.70-6.10)
Hgb 11.7 L g/dL
(13.0-18.0)
Hct 36.9 L %
(39.0-52.0)
MCHC 31.7 L g/dL
(33.0-37.0)
RDW 15.5 H %
(11.5-14.5)
Abs Immat Gran (auto) 0.1 H 10^3/uL
(0-0.05)
Absolute Neuts (auto) 6.7 H 10^3/uL
(1.4-6.5)
Absolute Monos (auto) 0.8 H 10^3/uL
(0.1-0.6)
Immature Gran % 0.6 H %
(0-0.5)
Lymphocytes % 20.4 L %
(20.5-51.1)
BUN 27 H mg/dl
(9-20)
Glucose 145 H mg/dl
(70-99)
06/26/23 19:33
06/26/23 19:33
Vital Signs
Initial and Last Documented VS:
Initial Vital Signs
Temp Pulse Resp BP Pulse Ox
98.4 F 72 20 108/65 98
06/26/23 19:25 06/26/23 19:25 06/26/23 19:25 06/26/23 19:25 06/26/23 19:25
Last Documented Vital Signs
Temp Pulse Resp BP Pulse Ox
98.4 F 96 20 127/86 98
06/26/23 19:25 06/26/23 22:31 06/26/23 19:25 06/26/23 22:30 06/26/23 19:25
*Critical Care Note
Total Time (30-74mins, 75-104mins- exclusive of procedures): Not Applicable
ED Attending Note
-
Portions of this chart may have been created with voice recognition software.� Occasional wrong word or��sound alike� substitutions may have occurred due to the inherent limitations of voice recognition software.
Discharge Plan
Departure
Patient Disposition: Home (Routine Discharge)
Date of Disposition: 06/26/23
Time of Disposition: 22:48
Patient with high blood pressure during this ER visit?: Yes
Discharge Problem:
Near syncope
Prescriptions:
No Action
atorvastatin 80 MG tablet
80 mg PO DAILY
ferrous sulfate [Iron (ferrous sulfate)] 325 mg (65 mg iron) Tablet
325 mg PO NOON
fluticasone propionate 50 mcg/actuation [place],Suspension
1 spray INTRANASAL DAILY
sertraline 50 mg Tablet
75 mg PO DAILY
metformin 500 mg Tablet
500 mg PO BIDWMEAL
famotidine 40 mg Tablet
40 mg PO HS
aspirin 81 mg Tablet,Delayed Release (Dr/Ec)
81 mg PO DAILY
levothyroxine 50 mcg Tablet
50 mcg PO DAILY
spironolactone 25 mg Tablet
12.5 mg PO DAILY Qty: 30 0RF
Jardiance 10 mg Tablet
10 mg PO DAILY Qty: 30 0RF
lisinopril 5 mg Tablet
5 mg PO HS Qty: 30 0RF
furosemide [Lasix] 40 mg tablet
40 mg PO DAILY Qty: 30 0RF
ascorbic acid (vitamin C) 250 mg Tablet
250 mg PO NOON
clopidogrel 75 MG tablet
75 mg PO DAILY Qty: 30 0RF
metoprolol succinate 25 mg Tablet Extended Release 24 Hr
25 mg PO BID 30 Days Qty: 60 0RF
amiodarone 200 mg Tablet
200 mg PO DAILY 30 Days Qty: 30 0RF
Referrals:
Cristiano Veloz MD [Active] - Follow up in 2-3 days
Activity Restrictions/Additional Instructions:
Your hemoglobin is slightly low but is similar to recent prior currently 11.7, kidney function is normal, cardiac blood work looking for signs of heart attack is negative. The chest x-ray shows a very small pleural effusion on the right side.
Follow-up with Dr. Veloz. Return here if worse. Increase oral fluid intake at home and try to get up slowly when you do get up from a seated or laying position.
Interventions
Interventions:
*Risk Screen - Suicide Last Done: 06/26/23 19:21
*General Assessment Last Done: 06/26/23 19:21
*Neglect/Abuse Screening Last Done: 06/26/23 19:21
*ED COVID-19 Vaccine History Last Done: 06/26/23 19:21
Discharge Date and Time
Print Language: [place]
== END 2023-06-26 23:08 | disposition home or self-care (01) ==
LOC: EMR 19:11
PROVIDERS: Emergency Medicine; EMERGENCY PHYSICIAN Emergency Medicine; FAMILY PHYSICIAN Family Medicine
DX: R42 Dizziness and giddiness (principal); I25.10 Atherosclerotic heart disease of native coronary artery without angina pectoris; E11.9 Type 2 diabetes mellitus without complications; E78.00 Pure hypercholesterolemia, unspecified; F41.9 Anxiety disorder, unspecified; I10 Essential (primary) hypertension; Z82.49 Family history of ischemic heart disease and other diseases of the circulatory system; Z87.442 Personal history of urinary calculi; Z90.49 Acquired absence of other specified parts of digestive tract; Z98.84 Bariatric surgery status
CPT/HCPCS: 99283; 71046; 80053; 84484; 85025; 93005

== ENCOUNTER → 2023-08-20 11:39 | Outpatient (REF) | payer BC, SELFPAY | LOC: REG 11:39 | PROVIDERS: ATTENDING PHYSICIAN Thoracic Surgery (Cardiothoracic Vascular Surgery); FAMILY PHYSICIAN Family Medicine | DX: I71.010 Dissection of ascending aorta (principal) | CPT/HCPCS: 36415; 82565 ==

== ENCOUNTER 2023-12-07 05:35 | Inpatient (IN) | payer BC, SELFPAY ==
[2023-12-06 23:12] VITALS: BP 157/85
[2023-12-06 23:54] VITALS: BP 154/77
[2023-12-06 23:59] VITALS: BMI 34.2
[2023-12-07] VITALS (84 sets, daily range): BP systolic 84–157; BP diastolic 44–82; PULSE 65; BMI 33.5
--- NOTE | 2023-12-07 00:37 | ED.GENMED ---
History of Present Illness
General
Chief Complaint: Back Pain
Source: patient
Exam Limitations: none
Time Seen by Provider: 12/07/23 00:10
History of Present Illness
History of Present Illness:
This is a 58 year old male that comes in with c/o right mid back pain. States that this is in the right base of the scapula. States that he has had this before especially at night. States that he thought it was pulled muscle at first. States that he
does not have the pain during the day. States that he is concerned as he had one aortic dissection and there is still an aneurysm that they are watching and he is concerned that this is causing his pain. States that he is on a weight limit for
lifting and can only left less then 50 pounds. Denies any fever, chills, chest pain, SOB, abd pain, nausea, vomiting, diarrhea, headache, dizziness, urinary burning.
Past History
Past History
ED Past Medical History: Arrthythmia (Atrial fib), CAD, CVA, HTN, Hypercholesterolemia, NIDDM, Psychiatric (Anxiety) and Other (Thoracic aneurysm that they are watching, Kidney stones, Sleep apnea, Diverticulitis, UTI, )
ED Past Surgical History: Appendectomy, Cardiac (CABG), Orthopedic (Right knee replacement) and Other (gastric bypass, Hernia repair left sided, Aortic dissection with repair Jan 28, 2023)
Social History
Tobacco: Non-smoker
Alcohol: None
Drug: None
Personal:
Living: with family
Employment: Employed
Family History
Family History: CAD and Other
Review of Systems
Review of Systems
All Other Systems: ROS reviewed and negative except as documented in HPI and ROS
Constitutional: Reports no symptoms; Denies fever or chills
EENT: Reports no symptoms
Respiratory: Reports no symptoms; Denies cough or trouble breathing
Cardiac: Reports no symptoms; Denies chest pain
ABD/GI: Reports no symptoms; Denies abdominal pain, nausea, vomiting or diarrhea
: Reports no symptoms; Denies dysuria, frequency or urgency
Musculoskeletal: Reports back pain (Right sided mid back pain)
Skin: Reports no symptoms
Neurological: Reports no symptoms; Denies dizzy or headache
Psychiatric: Reports no symptoms
Phy Exam
General Physical Exam
General Presentation: well appearing and no apparent distress
General age: appears stated age
General Skin: warm and dry
General Habitus: normal
General Mental: alert
General Hydration: dry mucous membranes
ENT Exam
ENT Exam: TM's normal, pharynx normal and neck supple
Eye Exam
Eye Exam: EOMI
Cardiovascular Exam
Cardiovascular Exam: regular rate/rhythm, no edema and normal peripheral pulses
Pulmonary Exam
Pulmonary Exam: lungs clear, no respiratory distress, no rales, chest non tender, no crackles, no rhonchi, no wheezing and no cough
Gastrointestinal Exam
Gastrointestinal Exam: normal bowel sounds, non tender, soft, no organomegaly, no pulsatile mass and non distended
Musculoskeletal Exam
Musculoskeletal Exam: no edema and other (Tenderness to palpation over the left lateral hip. Slight Discomfort with flexion of the knee)
Skin Exam
Skin Exam: normal color, warm/dry, no rash and no petechia
Psychiatric Exam
Psychiatric Exam: normal mood/affect
Course
Orders/Labs/Results
Orders:
Orders
12/07/23 00:20
Electrocardiogram (*1) Urgent
Reason for Study: Bradycardia / Tachycardia
12/07/23 00:21
EKG- Treatment ONCE
12/07/23 00:22
Complete Blood Count/With Diff Urgent
Comprehensive Metabolic Panel Urgent
Troponin I Urgent
12/07/23 00:36
CT Chest/abd/pelvis Angio W/wo Urgent
Comment: Still has an aneurysm.
Reason For Exam: Back pain history of aortic dissection
Abnormal Lab Results
12/07/23
00:22
RBC 4.02 L 10^6/uL
(4.70-6.10)
Hgb 11.5 L g/dL
(13.0-18.0)
Hct 35.1 L %
(39.0-52.0)
MCHC 32.8 L g/dL
(33.0-37.0)
Abs Immat Gran (auto) 0.2 H 10^3/uL
(0-0.05)
Absolute Monos (auto) 1.0 H 10^3/uL
(0.1-0.6)
Immature Gran % 1.7 H %
(0-0.5)
Lymphocytes % 16.0 L %
(20.5-51.1)
Monocytes % 10.2 H %
(1.7-9.3)
BUN 28 H mg/dl
(9-20)
12/07/23 00:22
12/07/23 00:22
H/h slightly low. Dehydration. Troponin <0.012
Vital Signs
Initial and Last Documented VS:
Initial Vital Signs
Temp Pulse Resp BP Pulse Ox
98.5 F 61 18 157/85 98
12/06/23 23:12 12/06/23 23:12 12/06/23 23:12 12/06/23 23:12 12/06/23 23:12
Last Documented Vital Signs
Temp Pulse Resp BP Pulse Ox
98.5 F 56 24 146/70 95
12/06/23 23:12 12/07/23 03:00 12/07/23 03:00 12/07/23 03:00 12/07/23 03:00
MDM/Problems Addressed
Differential Diagnosis Includes:
Tendon tear, hip fracture
MDM/Problems Addressed:
This is a 58 year old male that comes in with c/o left hip pain. States that he was moving a refrig and it fell on him and it forced him to be in a squatting position. States that he heard something pop in the left hip. States that he has not been
able to put weight on the left leg since that time.
Will get CT of the left hip/pelvis.
CTA cont-attenuation decreased. No pulmonary embolism. Central airways are patent. Mild bibasilar atelectasis. Loculated small anterior mid right pneumothorax stable. Abdomen/pelvis: 1cm possible splenule pancreatic tail. Punctate nonobstructing
renal stones with no hydronephrosis. Other solid organs unremarkable. Prostate, seminal vesicles and urinary bladder unremarkable. Mild fecal loading with appendix not seen. Sleeve gastrectomy. Small bowel unremarkable. NO bulky adenopathy. NO acute
osseous finding.
Report sent to Vascular surgery Dr Mancilla. He is looking at scan and will decide if patient needs to stay. Await his call back.
Dr. Mancilla would like patient admitted. Would like to keep HR 60 and SBP 110. Will start on Cardene drip and admit. Hospitalist notified and Vascular surgery put on Consult.
Chronic conditions affecting care:
NA
Acute Exacerbation and/or Progression of Chronic Illness:
NA
*Radiology
Radiology exam reviewed: radiology read reviewed (CTA night hawk- Aorta: Again seen in ascending thoracic aortic repair with stent. Decreased periaortic edema since prior exam. Presumed reimplantation of great vessels, widely patient. Repair
material within true lumen proximal descending thoracic aorta stable with new dissection, like stent induced), all reviewed NAD by ED Provider (CTA cont-New Entry phenomenon; associated increased caliber 4.7cm at this leve, previously 4.2cm. False
lumen more inferiorly stable configuration again demonstrating partial enhancement. NOrmal abdominal aortic caliber with dissection flap extending to the bifurcation. Dissection within celiac ) and other (CTA cont- celiac artery with dilatation
1.5cm stable with no occlusion. Superior mesenteric and inferior mesenteric artery, single main renal arteries arise from the true lumen and are patent. Chest: up to 1cm mediastinal lymph nodes stable. Small bilateral pleural effusions with simple
fluid )
*Pulse Oximetry
Patient hypoxic: no
*EKG
Interpreted by ED Provider?: Yes
Heart Rate: 56
Rate: bradycardiac
Rhythm: sinus
[place]: right axis deviation
Interval: normal interval
QRS Pattern: left bundle branch block
Ischemia: no ischemia
*Zipper Repairer Interpretation
Rate: Zipper Repairer- N/A
*Critical Care Note
Total Time (30-74mins, 75-104mins- exclusive of procedures): Not Applicable
ED Attending Note
-
Portions of this chart may have been created with voice recognition software.� Occasional wrong word or��sound alike� substitutions may have occurred due to the inherent limitations of voice recognition software.
Discharge Plan
Departure
Patient Disposition: Admit
Date of Disposition: 12/07/23
Time of Disposition: 03:28
Admit to: ICU
Presentation/result/management discussed w/ accepting MD/DO: Hospitalist
Condition: Good
Covid-19: Not Applicable
Discharge Problem:
Aortic dissection, Back pain
Prescriptions:
No Action
atorvastatin 80 MG tablet
80 mg PO DAILY
ferrous sulfate [Iron (ferrous sulfate)] 325 mg (65 mg iron) Tablet
325 mg PO NOON
fluticasone propionate 50 mcg/actuation [place],Suspension
1 spray INTRANASAL DAILY
sertraline 50 mg Tablet
75 mg PO DAILY
metformin 500 mg Tablet
500 mg PO BIDWMEAL
famotidine 40 mg Tablet
40 mg PO HS
aspirin 81 mg Tablet,Delayed Release (Dr/Ec)
81 mg PO DAILY
levothyroxine 50 mcg Tablet
50 mcg PO DAILY
spironolactone 25 mg Tablet
12.5 mg PO DAILY Qty: 30 0RF
Jardiance 10 mg Tablet
10 mg PO DAILY Qty: 30 0RF
lisinopril 5 mg Tablet
5 mg PO HS Qty: 30 0RF
furosemide [Lasix] 40 mg tablet
40 mg PO DAILY Qty: 30 0RF
ascorbic acid (vitamin C) 250 mg Tablet
250 mg PO NOON
clopidogrel 75 MG tablet
75 mg PO DAILY Qty: 30 0RF
metoprolol succinate 25 mg Tablet Extended Release 24 Hr
25 mg PO BID 30 Days Qty: 60 0RF
amiodarone 200 mg Tablet
200 mg PO DAILY 30 Days Qty: 30 0RF
Referrals:
Demetria Mukherjee DO [Family Provider] -
Interventions
Interventions:
*Risk Screen - Suicide Last Done: 12/06/23 23:12
*General Assessment Last Done: 12/06/23 23:12
*Neglect/Abuse Screening Last Done: 12/07/23 00:01
ED- Fall Risk Assessment Last Done: 12/06/23 23:12
*ED COVID-19 Vaccine History Last Done: 12/06/23 23:12
ED-Musculoskeletal Assessment Last Done: 12/07/23 00:01
Discharge Date and Time
Print Language: WELSH
[2023-12-07 00:40] LABS: % Basophils 0.9 % (0-2); % Immature Granulocytes 1.7 % (0-0.5); % Monocytes 10.2 % (1.7-9.3); % Neutrophils 65.2 % (42.2-75.2); Absolute Basophils 0.1 10^3/uL (0-0.2); Absolute Eosinophils 0.6 10^3/uL (0-0.7); Absolute Immature Granulocytes 0.2 10^3/uL (0-0.05); Absolute Lymphocytes 1.5 10^3/uL (1.2-3.4); Hematocrit 35.1 % (39.0-52.0); Hemoglobin 11.5 g/dL (13.0-18.0); Mean Corp Hgb Conc. 32.8 g/dL (33.0-37.0); Mean Corpuscular Hgb 28.6 pg (27.0-31.0); Mean Corpuscular Volume 87.3 fL (80.0-94.0); Mean Platelet Volume 9.7 fL (7.4-10.4); Nucleated Red Blood Cells % 0 % (-); Platelet Count 359 10^3/uL (130-400); Red Blood Cell Count 4.02 10^6/uL (4.70-6.10); Red Cell Dist. Width 14.3 % (11.5-14.5); White Blood Cell Count 9.3 10^3/uL (4.8-10.8)
[2023-12-07 00:59] LABS: Troponin I < 0.012 ng/ml
[2023-12-07 01:32] LABS: ALT (SGPT) 38 U/L (0-50); AST (SGOT) 38 U/L (17-59); Albumin 4.1 g/dl (3.5-5.0); Alkaline Phosphatase 100 U/L (38-126); Blood Urea Nitrogen 28 mg/dl (9-20); Calcium 9.3 mg/dl (8.4-10.2); Carbon Dioxide 29 mmol/L (22-30); Chloride 102 mmol/L (98-107); Estimated Creatinine Clearance 96 ml/min; Glucose 92 mg/dl (70-99); Potassium 4.5 mmol/L (3.5-5.1); Sodium 145 mmol/L (135-145); Total Bilirubin 0.3 mg/dl (0.2-1.3); eGFR > 60.00
[2023-12-07] MEDS: CARDENE 200 IV ×3 (03:43→12:36)
--- NOTE | 2023-12-07 04:07 | HPS.HSE ---
Family Physician
-
Family Physician: Demetria Mukherjee
Chief Complaint
-
Back Pain
History of Present Illness
Patient is a 58y M with PMH significant for aortic dissection s/p repair, ASCVD, HTN and DM-II who presents to ED complaining of back pain. Patient states that he developed pain in the upper back between the shoulder blades this evening. The
pain did not radiate and was not associated with chest pain, dyspnea, lightheadedness, etc. He states that pain was not similar to his prior severe chest pain that he experienced with his aortic dissection. Patient presented to the ED for further
evaluation. His pain started at 10 PM and had resolved within 30 minutes - prior to his arrival to the ED.
Evaluation in the ED included CTA of the C/A/P given his known history. This revealed evidence of new area of dissection at the distal aspect of his aortic arch stent / graft.
At present, patient is resting comfortably in the ED with no complaints.
Patient admits that he had dietary indiscretions over this past 24 hours (primarily increased sodium) as it was his birthday.
Medical History
Past Medical History
Past Medical History: Reports Other
Additional Past Medical History:
Thoracic aortic dissection with repair
Klebsiella pneumonia required inotrope and vasopressor pressure support with 7-day course cefepime he had multiple bronchoscopies was extubated 02/02/2023
ASCVD - [place] with stent placement January 28, 2023
A-fib with RVR during aortic dissection repair - required multiple cardioversions
HTN
HLD
CVA 2019
DM2
Hypothyroidism
GERD
Obesity
Anxiety / Depression
Past Surgical History: Reports Other
Additional Past Surgical History:
Thoracic Aneurysm Repair / Ascending Aorta and Aortic Arch Replacement - January 2023 ([facility] - Dr. Diaz)
CABG
PTCA with Stent - 05 January 2023
LINQ device placed March 2023
Sleeve Gastrectomy
Left inguinal hernia repair
Right knee replacement
Appendectomy
Social History
Tobacco: Non-smoker
Alcohol: None
Drug: None
Personal:
Living: With Family ()
Family History
Family History: Other (Father age 74 history DM2, HTN, HLD, mother living and healthy)
Allergies / Home Medications
Allergies reflects when Allergies were last updated in [facility].
Home Medications with original date entered in [facility]
Allergy/Medication List:
Allergies
Allergy/AdvReac Type Severity Reaction Status Date / Time
morphine Allergy Hives Verified 12/06/23 23:11
Quinolones Allergy Unknown Verified 12/06/23 23:11
Home Medications
atorvastatin 80 mg tablet 80 mg PO DAILY High cholesterol 12/19/19
amiodarone 200 mg tablet 200 mg PO DAILY 30 days #30 tabs 03/09/23
clopidogrel 75 mg tablet 75 mg PO DAILY #30 tabs 03/09/23
metoprolol succinate 25 mg tablet,extended release 24 hr 25 mg PO BID Blood pressure 30 days #60 tabs 03/09/23
ferrous sulfate 325 mg (65 mg iron) tablet (Iron (ferrous sulfate)) 325 mg PO NOON Supplement 04/12/23
sertraline 50 mg tablet 75 mg PO DAILY Depression 04/12/23
aspirin 81 mg tablet,delayed release 81 mg PO DAILY Blood Clot Prevention/Tx 06/04/23
levothyroxine 50 mcg tablet 50 mcg PO DAILY Thyroid 06/04/23
metformin 500 mg tablet 500 mg PO BIDWMEAL Diabetes 06/04/23
empagliflozin 10 mg tablet (Jardiance) 10 mg PO DAILY #30 tabs 06/06/23
furosemide 40 mg tablet (Lasix) 40 mg PO DAILY #30 tabs 06/06/23
lisinopril 5 mg tablet 5 mg PO HS #30 tabs 06/06/23
spironolactone 25 mg tablet 12.5 mg (1/2 x 25 mg) PO DAILY #30 tabs 06/06/23
Review of Systems
-
History Source: Patient
A 12 point ROS was completed and negative except as noted: Yes
Constitutional: Denies Fever or Chills
Respiratory: Denies Cough or Trouble Breathing
Cardiac: Denies Chest Pain or Palpitations
Abdomen/GI: Denies Abdominal Pain, Nausea, Vomiting or Diarrhea
: Denies Dysuria, Frequency or Flank Pain
Musculoskeletal: Reports Other (Back Pain); Denies Joint Pain or Edema
Neurological: Denies Dizzy, Headache, Weakness or Numbness
Psych: Denies Depression or Anxiety
Physical Exam
Vital Signs
Vital Signs
Temp Pulse Resp BP Pulse Ox
98.5 F 62 14 135/75 96
12/06/23 23:12 12/07/23 04:00 12/07/23 04:00 12/07/23 04:00 12/07/23 04:00
Physical Exam
General: Other (58y M in no acute distress.)
HEENT: Moist mucous membranes and PERRLA
Respiratory: Clear; No Wheezes, Rales or Rhonchi
Cardiac: S1/S2, Regular Rhythm and Murmur (III/ MEGGAN)
GI: Soft, Non Tender, Non Distended and Normal Bowel Sounds
Musculoskeletal: No Clubbing, No Cyanosis and No Edema
Neuro: AO x 3
Laboratory Results
-
12/07/23 00:22
12/07/23 00:22
Laboratory Results
Total Bilirubin 0.3 mg/dl (0.2-1.3) 12/07/23 00:22
AST 38 U/L (17-59) 12/07/23 00:22
ALT 38 U/L (0-50) 12/07/23 00:22
Alkaline Phosphatase 100 U/L (38-126) 12/07/23 00:22
Troponin I < 0.012 ng/ml 12/07/23 00:22
Impression/Plan
-
A/P: Patient is a 58y M with PMH significant for ASCVD, HTN, DM-II and prior aortic aneurysm / dissection with repair who presents to ED complaining of upper back pain.
Aortic Dissection
- Admit to ICU for further evaluation and treatment.
- CT done this evening shows new area of dissection / dilation at the distal aspect of the graft / stent.
- More distal aortic dissection appears fairly stable.
- Admit to ICU for aggressive impulse management.
- Keep SBP < 110 and HR < 60.
- Continue home medications.
- IV nicardipine started in the ED - titrate as needed for BP control.
- If patient has elevated HR (has not thus far) then would change to labetalol for dual effect.
- Vascular Surgery evaluation for additional recommendations.
- Follow for any recurrent back discomfort or other symptoms.
ASCVD
- Stable. No anterior chest pain. Completely pain free at present.
- EKG with known LBBB. Troponin is undetectable.
- Continue ASA daily, beta-blockade, statin, etc.
Paroxysmal Atrial Fibrillation
- Stable. Continue amiodarone, metoprolol, etc.
- Patient is not maintained on chronic OAC therapy - presumably due to known aortic aneurysm / dissection.
Chronic HFrEF
- Stable. No evidence of acute volume overload by exam.
- Last Echo (05/2023) with LVEF approximately 35%.
- Continue usual Lasix and Aldactone dosing.
- Hold SGLT2 inhibitor acutely.
- Follow I/Os, daily weights, etc.
Benign Hypertension
- Aggressive control / anti-impulse therapy as noted above.
- Adjust med regimen as needed.
DM-II
- Stable. Hold PO med regimen acutely.
- Follow glucose and cover with SSI as needed.
- Update A1C.
Anxiety / Depression
- Stable. Continue sertraline.
Obesity due to excess calories
- Affects all aspects of care.
- s/p sleeve gastrectomy.
- Encourage healthy diet and regular activity with goal of weight reduction.
- Patient reports dietary indiscretions this past 24 hours (increased sodium) which may have contributed to BP elevation, etc.
DVT Prophylaxis: SCDs
Code Status: Full
[2023-12-07 05:59] LABS: Hematocrit 35.3 % (39.0-52.0); Hemoglobin 11.8 g/dL (13.0-18.0); Mean Corp Hgb Conc. 33.4 g/dL (33.0-37.0); Mean Corpuscular Hgb 27.6 pg (27.0-31.0); Mean Corpuscular Volume 82.5 fL (80.0-94.0); Mean Platelet Volume 9.4 fL (7.4-10.4); Platelet Count 359 10^3/uL (130-400); Red Blood Cell Count 4.28 10^6/uL (4.70-6.10); Red Cell Dist. Width 14.3 % (11.5-14.5); White Blood Cell Count 10.9 10^3/uL (4.8-10.8)
--- NOTE | 2023-12-07 06:00 | PTCARENOTE ---
Pt arrived to floor via stretcher, pt able to stand and pivot from stretcher to bed independently. Pt independent and ambulatory at baseline, Pt ordered bedrest, pt reports understanding. Pt AAOx3. HR in the 50's-60's in SB with BBB, Prolonged QT on
the monitor. Esmolol gtt infusing via right wrist int @ 50mcg/kg/min to keep HR <60. Cardene gtt infusing via right AC int @ 7.5mg/hr to keep SBP 90-110. + bowel, round abd. Pt unable to void laying in bed, pt stood at bedside and able to void
without difficulty. palpable peripheral pulses present. Knee high seq in place. Pt denies any complaints of pain at this time. Call negrete in reach. Will continue to monitor.
[2023-12-07] MEDS: SYNTHROID 50 MCG PO (06:03)
[2023-12-07] MEDS: BREVIBLOC 2500 MG 250 IV ×3 (06:05→18:53)
[2023-12-07 06:08] LABS: INR 1.04; PT 13.6 Sec (11.4-14.6)
[2023-12-07 06:09] LABS: APTT 34.3 Sec (23.4-35.0)
[2023-12-07 06:16] LABS: Glucose - Point of Care 128 mg/dl (70-99)
--- NOTE | 2023-12-07 08:00 | PTCARENOTE ---
Patient received awake and alert, lying in bed. He is without CP, SOB, dizziness or back pain. See assessment charted. On Esmolol at 50mcg/kg/min and Cardene at 5mg/hr. VSS. On 1lnc oxygen. SB on CM with HR 59, 1st degree AVB, BBB, prolonged QT.
Left carotid, right radial, right femoral, bilateral dorsalis pedis and left ulnar pulses palpable. Right carotid, left femoral pulses not palpable, left radial artery absent s/p CABG.
[2023-12-07 08:06] LABS: Blood Urea Nitrogen 24 mg/dl (9-20); Calcium 9.1 mg/dl (8.4-10.2); Carbon Dioxide 24 mmol/L (22-30); Chloride 103 mmol/L (98-107); Estimated Creatinine Clearance > 125 ml/min; Glucose 129 mg/dl (70-99); Potassium 4.2 mmol/L (3.5-5.1); Sodium 139 mmol/L (135-145); eGFR > 60.00
[2023-12-07] MEDS: ASPIR LOW (ENTERIC COATED) 81 MG PO (08:21)
[2023-12-07] MEDS: ZOLOFT 75 MG PO (08:22)
[2023-12-07] MEDS: LASIX 40 MG PO (08:23)
[2023-12-07] MEDS: LIPITOR 80 MG PO (08:23)
[2023-12-07] MEDS: ALDACTONE 12.5 MG PO (08:24)
--- NOTE | 2023-12-07 08:42 | CON.VAS ---
Addendum entered and electronically signed by Juan M Ellsworth III, MD 12/07/23 17:17:
This patient was seen and examined with MORENITA London. I agree with the history and physical exam as well as the assessment and plan. I have the following additions:
Prior total arch with frozen elephant trunk (Thoraflex device) at [facility] 01/2024 for Type A dissection
Followed by Joe at [facility]
Admitted with chest/back pain. Now resolved
No complaints currently
On Nicardipine and Esmolol in ICU with well controlled BP
CTA chest/abd/pelvis reviewed and compared to 02/2023 and 08/2023 (remote access to [facility] [place]).
There has been interval enlargement of the DTA at the distal aspect of the Thoraflex stent. Max diameter in this area now 46-47 mm (previously 42 mm in August; 38/39 mm in Feb 2023). Retrograde contrast flow around the Thoraflex to the proximal aspect
of the stent. No evidence of rupture. Arch repair intact with no abnormality.
I discussed this case with Dr. Diaz and reviewed the imaging with him. Plan for now will be continued aggressive blood pressure management and observation. If he remains pain-free and has well-controlled blood pressure on oral regimen we will
plan for short interval follow-up with Dr. Diaz after discharge.
Will follow.
Juan M Ellsworth III, MD
[facility]
[phone] (cell)
Addendum entered and electronically signed by MORENITA London 12/07/23 13:28:
Dr Ellsworth spoke with Dr Diaz by phone. Plan to continue BP management here at [place]. If pt remains pain free and BP controlled on PO meds can follow up with Dr Diaz as outpatient. Team aware
Original Note:
Consultation
Consultation Request
Performing Provider: Jodee
Reason for Consultation: Dissection
Medical History
-
Chief Complaint: Scapular discomfort-resolved
History of Present Illness:
58-year-old male presented to the ER overnight for scapular discomfort he felt was similar to when he had an aortic dissection in the past. Last January patient was at [facility] for thoracic aortic dissection with repair by Dr. Diaz in 01/27, on same
admission he also had Klebsiella pneumonia with intubation, [place] with stent placement, and new A-fib. Other past medical history hypertension, hyperlipidemia, CVA in 2019, diabetes, obesity, hypothyroidism, GERD, anxiety/depression, CABG, sleeve
gastrectomy. Once in the emergency room patient's pain dissipated. Patient denied chest pain, abdominal pain.
CTA c/a/p: Suggest a possible new area of dissection
Vascular consult for above findings. Patient seen at bedside this a.m. with Dr. Ellsworth. Patient denies any pain at this time. Abdomen is soft and nontender. Palpable pulses throughout lower extremities, bilateral feet warm. Palpable right radial
pulse. Patient on esmolol and Cardene drips for blood pressure/heart rate management.
Past Medical History
Past Medical History: Arrhythmias (A-fib), CVA, GERD, HTN, Hypercholesterolemia, Hypothyroidism, IDDM, IN and Psychiatric (Anxiety/depression)
Past Surgical History: Appendectomy, Cardiac (CABG, ascending aorta and aortic arch replacement/thoracic aneurysm repair 01/[address] Diaz, cardioversions, stent placement), Orthopedic and Other (Sleeve gastrectomy, left inguinal hernia repair,
linq 03/31)
Social History
Tobacco: Non-Smoker
Alcohol: None
Drug: None
Personal:
Living: With Family
Family History
Family History: Reviewed & Not Pertinent
Allergies / Home Medications
Allergy/AdvReac Type Severity Reaction Status Date / Time
morphine Allergy Hives Verified 12/06/23 23:11
Quinolones Allergy Unknown Verified 12/06/23 23:11
�Medication �Instructions �Recorded �Confirmed �Type
atorvastatin 80 mg tablet 80 mg PO DAILY High cholesterol 12/19/19 12/07/23 History
amiodarone 200 mg tablet 200 mg PO DAILY 30 days #30 tabs 03/09/23 12/07/23 Rx
clopidogrel 75 mg tablet 75 mg PO DAILY #30 tabs 03/09/23 12/07/23 Rx
metoprolol succinate 25 mg 25 mg PO BID Blood pressure 30 03/09/23 12/07/23 Rx
tablet,extended release 24 hr days #60 tabs
ferrous sulfate 325 mg (65 mg 325 mg PO NOON Supplement 04/12/23 12/07/23 History
iron) tablet (Iron (ferrous
sulfate))
sertraline 50 mg tablet 75 mg PO DAILY Depression 04/12/23 12/07/23 History
aspirin 81 mg tablet,delayed 81 mg PO DAILY Blood Clot 06/04/23 12/07/23 History
release Prevention/Tx
levothyroxine 50 mcg tablet 50 mcg PO DAILY Thyroid 06/04/23 12/07/23 History
metformin 500 mg tablet 500 mg PO BIDWMEAL Diabetes 06/04/23 12/07/23 History
empagliflozin 10 mg tablet 10 mg PO DAILY #30 tabs 06/06/23 12/07/23 Rx
(Jardiance)
furosemide 40 mg tablet (Lasix) 40 mg PO DAILY #30 tabs 06/06/23 12/07/23 Rx
lisinopril 5 mg tablet 5 mg PO HS #30 tabs 06/06/23 12/07/23 Rx
spironolactone 25 mg tablet 12.5 mg (1/2 x 25 mg) PO DAILY #30 06/06/23 12/07/23 Rx
tabs
Review of Systems
-
History Source: Patient
All other systems: Negative unless noted
Constitutional: Reports No Symptoms
EENT: Reports No Symptoms
Respiratory: Reports No Symptoms
Cardiac: Reports No Symptoms
Vascular: Denies Leg Pain / Claudication
Abdomen/GI: Reports No Symptoms
: Reports No Symptoms
Musculoskeletal: Reports Other (Left scapular pain-resolved)
Skin: Reports No Symptoms
Neurological: Reports No Symptoms
Physical Exam
Vital Signs
Temp Pulse Resp BP Pulse Ox
98.2 F 58 13 114/59 98
12/07/23 05:38 12/07/23 08:23 12/07/23 06:45 12/07/23 08:23 12/07/23 06:45
Lab Results
12/07/23 05:49
12/07/23 06:42
Troponin I < 0.012 ng/ml 12/07/23 00:22
Physical Exam
General: No Apparent Distress
HEENT: Normocephalic and Atraumatic
Respiratory: Non Labored Respirations
Cardiac: Negative JVD
GI: Soft, Non Tender and Non Distended
Musculoskeletal: No Clubbing, No Cyanosis and No Edema
Skin: Warm
Neuro: Awake, Alert and Oriented
Psych: Calm
Pulses: Bilateral Femoral: +2, Bilateral Dorsalis Pedis: +2 and Bilateral Posterior Tibial: +2
Assessment / Plan
-
58-year-old male with history of thoracic aortic aneurysm repair, dissection
Here for scapular pain that has now resolved. CTA findings possible new area of dissection/flow into the false lumen
Patient of Dr. Diaz at [facility]
Plan:
-Patient stable at this time, Dr. Ellsworth due to speak with Dr. Diaz on next steps
-Will follow-up with patient/family this afternoon
Data Reviewed
-
CT Scan: Discussed with Patient
Labs: Labs Reviewed by me
[2023-12-07] MEDS: PACERONE 200 MG PO (08:57)
--- NOTE | 2023-12-07 09:45 | PTCARENOTE ---
Addendum entered by Lorena Andrade RN 12/07/23 11:00:
Cardene gtt adjusted to 10mg/hr at 0945 due to SBP 120s; Cardent gtt increased to 12.5mg/hr at 1000 due to SBP 120s. Esmolol increased to 75mg hr due to HR 62
Original Note:
Dr Lozano at bedside to assess patient.
--- NOTE | 2023-12-07 09:47 | CON.CAR ---
Addendum entered and electronically signed by Cristiano Veloz MD 12/07/23 11:37:
I saw and examined the patient.
The Bar Tacker's note was reviewed and I agree with the note.
Comment:
GEN: No distress, awake, Ox3
HEENT: supple, anicteric, mmm
LUNGS: CTA, no wheezes/rales
CV: Reg, S1/S2, 2/6 syst LSB, no gallop
ABD: soft, BS+, NT/ND
EXT: No edema
NEURO: Gross non-focal
SKIN: No rash
Plan:
Past medical history including CABG, h/o Debakey I aortic dissection s/p redo sternotomy, AV resuspension, ascending, repair of innominate artery, reimplantation of R radial artery CABG graft to aorta and FET (total arch replacement 30mm Thoraflex
and 32mm TEVAR) [facility], Dr. Rene Diaz 01/28/23, paroxysmal atrial fibrillation, stroke, hypertension, diabetes, and hyperlipidemia. He presented to [facility] last night at about 10 PM with pain between his shoulders. This about 20
minutes and resolved on its own. CT scan of his aorta revealed a possible new endoleak at his aortic anastomosis site. We are asked to help manage his blood pressure.
I discussed the case with CT surgery and vascular surgery. Dr. Ellsworth will reach out to Dr. Diaz of [facility] to further discuss management.
Hemoglobin is stable at 11.9.
He remains in sinus rhythm. Continue amiodarone. He was not anticoagulated because of significant hemoptysis. Remain off full anticoagulation for now. Continue aspirin and Plavix.
Okay to continue Cardene and esmolol. If no plans for urgent surgery would restart metoprolol. Goal heart rate about 50 to 60 bpm and goal systolic blood pressure 110 systolic.
Check repeat echocardiogram to reevaluate LVEF. Last EF about 40% with stable aortic valve and moderate MR.
His volume status overall appears stable. Ultimately would resume lisinopril, spironolactone, and Jardiance.
Original Note:
Consultation
Consultation Request
Date/Time Consultation Performed: 12/07/23
Requesting Provider: Dr. Christie
Performing Provider: Zoë Montoya PA-C for Dr. Veloz
Reason for Consultation: back pain, aortic dissection, BP control
Medical History
-
Chief Complaint: back pain
History of Present Illness:
HPI: Juan M is a 57 year old male with PMH of CAD s/p CABG, type A aortic dissection s/p repair, paroxysmal atrial fibrillation, CVA, HTN, HLD, DM2, and LOLY who presented to [facility] for evaluation of back pain. He reports yesterday evening ~10PM he
developed upper back pain between his shoulder blades. He reports this lasted ~20 minutes and resolved without recurrence. Denies CP, SOB, lightheadedness. CTA of C/A/P official read pending, however upon review with CT surgery concern for slightly
worsened endoleak of bottom side of previously placed graft. Cardiology asked for assistance with BP control. Currently on esmolol and cardene gtts. On toprol 25mg BID and amiodarone 200mg daily as OP.
PMH:
CAD
CABG x2 (LEACH - LAD, free radial - PDA) 2003
stable coronary disease with patent grafts by cath 11/18/2018
h/o Debakey I aortic dissection s/p redo sternotomy, AV resuspension, ascending, repair of innominate artery, reimplantation of R radial artery CABG graft to aorta and FET (total arch replacement 30mm Thoraflex and 32mm TEVAR) [facility], Dr. López
Diaz 01/28/23
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
Paroxysmal atrial fibrillation
Linq monitor implanted 04/12/2023
Not chronically anticoagulated due to h/o hemoptysis
Chronic amiodarone therapy
Chronic LBBB
h/o L CVAs 03/2017
TIA 03/04/17
HTN
HLD
DM2
Hypothyroidism
GERD
LOLY
Obesity s/p sleeve gastrectomy
Past Medical History
Past Medical History: Other (In HPI)
Past Surgical History: Appendectomy, Cardiac (CABG x2 2003, Total aortic arch replacement w/ Thora flex graft, graft to L subclavian artery and R innominate artery, aortic valve resuspension and replacement of ascending aorta w/ dacryon graft, R
radial artery reimplantation 01/28/2023, Linq monitor 04/2023) and Other (bariatric surgery 04/2019, inguinal hernia repair, R TKR, lithotripsy)
Social History
Tobacco: Non-Smoker
Alcohol: None
Drug: None
Personal:
Living: With Family
Family History
Family History: Diabetes and Hypertension
Allergies / Home Medications
Allergy/AdvReac Type Severity Reaction Status Date / Time
morphine Allergy Hives Verified 12/06/23 23:11
Quinolones Allergy Unknown Verified 12/06/23 23:11
�Medication �Instructions �Recorded �Confirmed �Type
atorvastatin 80 mg tablet 80 mg PO DAILY High cholesterol 12/19/19 12/07/23 History
amiodarone 200 mg tablet 200 mg PO DAILY 30 days #30 tabs 03/09/23 12/07/23 Rx
clopidogrel 75 mg tablet 75 mg PO DAILY #30 tabs 03/09/23 12/07/23 Rx
metoprolol succinate 25 mg 25 mg PO BID Blood pressure 30 03/09/23 12/07/23 Rx
tablet,extended release 24 hr days #60 tabs
ferrous sulfate 325 mg (65 mg 325 mg PO NOON Supplement 04/12/23 12/07/23 History
iron) tablet (Iron (ferrous
sulfate))
sertraline 50 mg tablet 75 mg PO DAILY Depression 04/12/23 12/07/23 History
aspirin 81 mg tablet,delayed 81 mg PO DAILY Blood Clot 06/04/23 12/07/23 History
release Prevention/Tx
levothyroxine 50 mcg tablet 50 mcg PO DAILY Thyroid 06/04/23 12/07/23 History
metformin 500 mg tablet 500 mg PO BIDWMEAL Diabetes 06/04/23 12/07/23 History
empagliflozin 10 mg tablet 10 mg PO DAILY #30 tabs 06/06/23 12/07/23 Rx
(Jardiance)
furosemide 40 mg tablet (Lasix) 40 mg PO DAILY #30 tabs 06/06/23 12/07/23 Rx
lisinopril 5 mg tablet 5 mg PO HS #30 tabs 06/06/23 12/07/23 Rx
spironolactone 25 mg tablet 12.5 mg (1/2 x 25 mg) PO DAILY #30 06/06/23 12/07/23 Rx
tabs
Review of Systems
-
History Source: Patient
All other systems: Negative unless noted
Physical Exam
Vital Signs
Temp Pulse Resp BP Pulse Ox
98.2 F 58 13 125/65 98
12/07/23 05:38 12/07/23 08:57 12/07/23 06:45 12/07/23 08:57 12/07/23 06:45
Lab Results
12/07/23 05:49
12/07/23 06:42
Troponin I < 0.012 ng/ml 12/07/23 00:22
Physical Exam
General: No Apparent Distress, Comfortable and Other (on supp O2)
HEENT: Normocephalic, Anicteric and Moist Mucous Membranes
Respiratory: Clear and Non Labored Respirations
Cardiac: S1/S2 and Regular Rhythm
GI: Soft, Non Tender, Non Distended and Normal Bowel Sounds
Musculoskeletal: No Clubbing, No Cyanosis and No Edema
Skin: Warm and Dry
Neuro: AO x 3
Impression / Plan
-
PCP: Dr. Greg Trejo
Gyn Physician: Dr. Veloz
Impression:
Presentation with back pain
Concern for slightly worsened area of endoleak at distal end of TEVAR graft
CAD
CABG x2 (LEACH - LAD, free radial - PDA) 2003
stable coronary disease with patent grafts by cath 11/18/2018
h/o Debakey I aortic dissection s/p redo sternotomy, AV resuspension, ascending, repair of innominate artery, reimplantation of R radial artery CABG graft to aorta and FET (total arch replacement 30mm Thoraflex and 32mm TEVAR) [facility] [place], Dr. López
Diaz 01/28/23
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
Paroxysmal atrial fibrillation
Linq monitor implanted 04/12/2023
Not chronically anticoagulated due to h/o hemoptysis
Chronic amiodarone therapy
Chronic LBBB
h/o L CVAs 03/2017
TIA 03/04/17
HTN
HLD
DM2
Hypothyroidism
GERD
LOLY
Obesity s/p sleeve gastrectomy 2019
Echo 07/25/2021: EF 59%, mild cLVH, mild MR, mildly dilated RV, mildly dilated ascending aorta 4.0cm
Post-Op LAURA 01/28/2023 @[facility]: EF 40-45%, moderate RV dysfunction, inferior septal hypokinesis, trace TR
Echo 06/04/2023: EF 35 to 40%, globally hypokinetic ventricle, flattening of interventricular septum consistent with RV pressure and volume overload, dilated RV, severely dilated left atrium, moderate MR, mild TR, PAP 46 mmHg, aortic root measures
4.2 cm at sinus of Valsalva and 4.6 cm and ascending portion of thoracic aorta
Plan:
-He presented with episode of ~20 minutes of back discomfort evening of 12/05
-official read of CTA C/A/P pending at this time
-reviewed images with CT surgery. concern for slightly worsened area of endoleak at distal end of TEVAR graft. vascular to evaluate patient
-trop negative. EKG SB with chronic LBBB
-plan to keep SBP<110 and HR<60. continue esmolol and cardene. hold OP toprol. continue OP amio 200mg daily
-also continues on lasix 40mg po daily and aldactone 12.5mg daily
-as OP on asa and plavix. currently only receiving asa
-d/w presentation manager, nursing
HPI: Juan M is a 57 year old male with PMH of CAD s/p CABG, type A aortic dissection s/p repair, paroxysmal atrial fibrillation, CVA, HTN, HLD, DM2, and LOLY who presented to [facility] for evaluation of SOB. He notes that for the past few days he has had
some increased SOB. He was seen by his PCP who felt that anxiety may be contributing to his symptoms and he was started on medication for anxiety. Last night he then states he woke up in the middle of the night, gasping for air. He notes this was
uncommon for him, and he was unable to fall back asleep. He thought he would try to participate in cardiac rehab today, however when doing his first exercise, he became extremely SOB and knew he would not be able to continue exercising. He was sent
to the ER for further evaluation and was found to have evidence of acute heart failure with elevated proBNP and pleural effusions. He was given a dose of IV lasix in the ER and notes his breathing has improved and he has been responding quickly to
the lasix. He has been admitted for further evaluation and treatment and cardiology consulted for evaluation. He notes he has had increased abdominal bloating and mild LE edema. Has not noticed weight gain, however weight recorded in ER is 14lbs
higher than last OV weight 03/2023. Denies any chest pain or palpitations.
Data Reviewed
-
EKG: Tracing Personally Visualized and interpreted
CT Scan: Image Personally Visualized and interpreted
Medical Tests (Nuc Med, Echo etc): Report Reviewed by me
Labs: Labs Reviewed by me
Old Records: Reviewed
--- NOTE | 2023-12-07 10:30 | PTCARENOTE ---
Dr Ellsworth at bedside to assess. Updated with patient status.
[2023-12-07 10:41] LABS: Glycohemoglobin (HgbA1c) 6.1 % (4.0-5.6)
--- NOTE | 2023-12-07 11:02 | CONSULT.CT ---
Consultation
-
Date/Time Consultation Performed: 12/07/23 1100
Requesting Provider: Jan FERNANDEZ
Performing Provider: Karina XAVIER for Dr. morejon
Reason for Consultation: Type B Dissection
Patient History
Physicians
Family Physician: Dr. Greg Trejo
Inpatient Rn Manager: Dr. Veloz
History of Present Illness
57-year-old male with past medical history significant for coronary artery disease s/P CABG x 2 in 2003 and a redo sternotomy for a Debakey I aortic dissection s/p redo sternotomy, AV resuspension, ascending, repair of innominate artery,
reimplantation of R radial artery CABG graft to aorta and FET (total arch replacement 30mm Thoraflex and 32mm TEVAR) at [facility]. Today he presented to [facility] with complaints of upper back pain that lasted about 20 minutes. A CTA of the
chest abdomen pelvis showed concern for a endoleak of the distal graft. CT surgery was consulted and CTA images were reviewed by Dr. Morejon.
Past Medical History
Past Medical History: Other
CAD
CABG x2 (LEACH - LAD, free radial - PDA) 2003
stable coronary disease with patent grafts by cath 11/18/2018h/o Debakey I aortic dissection s/p redo sternotomy, AV resuspension, ascending, repair of innominate artery, reimplantation of R radial artery CABG graft to aorta and FET (total arch
replacement 30mm Thoraflex and 32mm TEVAR) [facility], [facility] Rene [facility]
Postop course complicated by respiratory failure requiring prolonged intubation, A-fib, persistent leukocytosis, CHF, deconditioning, delirium, supraglottic and vocal cord problems status post vocal cord injectionParoxysmal atrial fibrillation
Linq monitor implanted 04/12/2023
Not chronically anticoagulated due to h/o hemoptysis
Chronic amiodarone therapy Chronic LBBB
h/o L CVAs 03/2017
TIA 03/04/17
HTN
HLD
DM2
Hypothyroidism
GERD
LOLY
Obesity s/p sleeve gastrectomy
Past Surgical History
Past Surgical History: CABG and Other
bariatric surgery 04/2019, inguinal hernia repair, R TKR, lithotripsy
Debakey I aortic dissection s/p redo sternotomy, AV resuspension, ascending, repair of innominate artery, reimplantation of R radial artery CABG graft to aorta and FET (total arch replacement 30mm Thoraflex and 32mm TEVAR) [facility], Dr. Rene Diaz
01/28/23
Family History
Mother: N/A
Father: N/A
Social History
Alcohol: None
Drug: None
Tobacco: Non-Smoker
Personal:
Living: With Family
Allergies
Allergy/AdvReac Type Severity Reaction Status Date / Time
morphine Allergy Hives Verified 12/06/23 23:11
Quinolones Allergy Unknown Verified 12/06/23 23:11
Home Medications
�Medication �Instructions �Recorded �Confirmed �Type
atorvastatin 80 mg tablet 80 mg PO DAILY High cholesterol 12/19/19 12/07/23 History
amiodarone 200 mg tablet 200 mg PO DAILY 30 days #30 tabs 03/09/23 12/07/23 Rx
clopidogrel 75 mg tablet 75 mg PO DAILY #30 tabs 03/09/23 12/07/23 Rx
metoprolol succinate 25 mg 25 mg PO BID Blood pressure 30 03/09/23 12/07/23 Rx
tablet,extended release 24 hr days #60 tabs
ferrous sulfate 325 mg (65 mg 325 mg PO NOON Supplement 04/12/23 12/07/23 History
iron) tablet (Iron (ferrous
sulfate))
sertraline 50 mg tablet 75 mg PO DAILY Depression 04/12/23 12/07/23 History
aspirin 81 mg tablet,delayed 81 mg PO DAILY Blood Clot 06/04/23 12/07/23 History
release Prevention/Tx
levothyroxine 50 mcg tablet 50 mcg PO DAILY Thyroid 06/04/23 12/07/23 History
metformin 500 mg tablet 500 mg PO BIDWMEAL Diabetes 06/04/23 12/07/23 History
empagliflozin 10 mg tablet 10 mg PO DAILY #30 tabs 06/06/23 12/07/23 Rx
(Jardiance)
furosemide 40 mg tablet (Lasix) 40 mg PO DAILY #30 tabs 06/06/23 12/07/23 Rx
lisinopril 5 mg tablet 5 mg PO HS #30 tabs 06/06/23 12/07/23 Rx
spironolactone 25 mg tablet 12.5 mg (1/2 x 25 mg) PO DAILY #30 06/06/23 12/07/23 Rx
tabs
Review of Systems
-
History Source: Patient
General: Reports No Symptoms
Respiratory: Reports SOB
Cardiac: Reports Chest Pain
Abdomen/GI: Reports No Symptoms
: Reports No Symptoms
Musculoskeletal: Reports Other (back pain)
Skin: Reports No Symptoms
Vascular: Reports No Symptoms
Physical Exam
Vital Signs
Temp 98.1 F 12/07/23 08:00
Temp route: Oral 12/07/23 08:00
Pulse 56 12/07/23 10:30
Rhythm: Normal sinus rhythm 12/07/23 10:05
With- Left Bundle Branch Block, First Degree Heart Block 12/07/23 10:05
Resp Rate 17 12/07/23 10:30
Blood pressure 105/55 12/07/23 10:30
Blood pressure extremity used: Left upper arm 12/07/23 08:00
Position: Lying 12/07/23 08:00
MAP (cuff-Ollie Monitor) 71 12/07/23 10:30
SaO2 93 12/07/23 10:30
Nasal Cannula flow liters per minute 1 12/07/23 08:00
Oxygen Mode of Delivery Room air 12/07/23 05:52
Acceptable pain level during hospitalization? 0 12/06/23 23:12
Can the patient verbally communicate their pain? Yes 12/07/23 08:00
Pain scale ratin 12/07/23 06:26
Actual Weight 112 kg 12/07/23 05:55
Body Mass Index (BMI) 33.5 12/07/23 05:55
Labs
12/07/23 05:49
12/07/23 06:42
PT 13.6 Sec (11.4-14.6) 12/07/23 05:49
APTT 34.3 Sec (23.4-35.0) 12/07/23 05:49
Hemoglobin A1c 6.1 % (4.0-5.6) H 12/07/23 05:49
Troponin I < 0.012 ng/ml 12/07/23 00:22
Exam
General: Well Developed, Well Nourished and Comfortable
HEENT: Normocephalic
Respiratory: Clear
Cardiac: S1/S2
GI: Soft
Rectal: Deferred by Provider
Skin: Warm
Neuro: AO x 3
Extremities: Pulses (B/L +1)
Lymph: No Lymphadenopathy
Psych: Calm
Assessment / Plan
-
58-year-old male with past medical history listed above presented to [facility] on 12/06 with complaints of upper back pain. CT scan revealed a possible distal endoleak of his previous graft.
#Type B Aortic Dissection
- Continue aggressive blood pressure control
- agree with Vascular consult for TEVAR
Data Reviewed
-
[employer]: Discussed with Physician
--- NOTE | 2023-12-07 11:33 | CON.INTV ---
Addendum entered and electronically signed by Sunil Escalante MD 12/07/23 13:02:
Patient seen and examined independently by myself. Reviewed resident note below, agree with assessment and plan
Patient is a pleasant 58-year-old male with history of type a dissection status post repair January 2023, hypertension, diabetes, untreated sleep apnea. Patient woke up suddenly at around 10:00 at night with right-sided back pain. He initially
did not want to come to the ED but his encouraged him. Pain had resolved upon arrival to the ED. Imaging confirmed no intimal tear based on contrast images. Patient started on Cardene and esmolol drip and admitted to ICU for further
management
Presently he is without chest pain, shortness of breath, back pain, lightheadedness, dizziness, headaches, vision changes.
Past medical history, social history, family history, review of systems as below
Presently vital stable, systolic pressure 100s, heart rate 50s to 60s, patient on room air
Chest exam is clear. Cardiac exam regular rate rhythm. He does have a 2/6 systolic murmur. He has a large neck.
Abdominal exam benign
No edema, no calf tenderness.
Neurologically moves all extremities, cranial nerves grossly intact
Data reviewed
Hemoglobin 11.8
left bundle branch block noted per EKG. Reviewed chest x-ray and CT images previous small bilateral pleural effusions.
A/P
Moving forward, will continue with management for new intimal tear, endoleak. Esmolol and Cardene drip will continue with appropriate parameters
Patient is being followed by cardiology, vascular surgery. Ongoing discussion with vascular surgery at [place]
Hold beta-libertad therapy. Remains on amiodarone therapy
Patient also on antiplatelet therapy, remains n.p.o. for now pending decision on management
Aspirin continues, clopidogrel was held
reviewed with critical care nursing, respiratory care, pharmacy
TCCT 31 min
Original Note:
Consultation
Consultation Request
Date/Time Consultation Requested: 12/06
Date/Time Consultation Performed: 8:30
Medical History
-
Chief Complaint: Sudden Right Back Pain
History of Present Illness:
Patient is a 58 yo male with PMH of thoracic aortic dissection s/p repair 2022 (at [facility] with Dr. Diaz) who presented to ED after experiencing sudden onset right-sided back pain. Yesterday evening around 10PM he felt pain below his right shoulder
blade which felt like a 'muscle pull'. Denies CP, abdominal pain, SOB, nausea/vomiting, lightheadedness/diziness at that time. Pain lasted less than 30 minutes and before he got into his car to come to the ED, it had gone away. He reports the pain
as a 4/10 compared to the pain he had from his previous dissection. His insisted on him coming to the ED because of his past medical history. It was his birthday yesterday and he admits to eating hamburgers and fries but denies excessive
alcohol drinking. Denies lifting heavy objects. Denies cocaine use.
In the ED, CTA of chest/abdominal/pelvis showed new intimal tear along the distal aspect of metallic stent along the distal aortic arch. His vital signs on admission were: BP: 157/85, WA:61, O2sat:98 on RA. He was started on esmolol and cardene
drip in ED.
PMH: type A aortic dissection (2022), CAD s/p CABG , paroxysmal Afib (on amiodarone and toprol), CVA in 2018 (on Plavix and aspirin), HTN, HLD, HFrEF, NIDDM (on metformin and Jardiance), and GERD, hypothyroidsm, obesity
PSH: Appendectomy, Cardiac (CABG, ascending aorta and aortic arch replacement), thoracic aneurysm repair 01/27, Sleeve gastrectomy, left inguinal hernia repair, linq monitor this March
Past Medical History
Past Medical History: Other (See above)
Past Surgical History: Other (See above)
Social History
Tobacco: Former Smoker (Smoked occasionally in the distant past)
Alcohol: None
Drug: None
Personal:
Living: With Family
Employment: Employed
Family History
Family History: Reviewed & Not Pertinent
Allergies / Home Medications
Allergies
Allergy/AdvReac Type Severity Reaction Status Date / Time
morphine Allergy Hives Verified 12/06/23 23:11
Quinolones Allergy Unknown Verified 12/06/23 23:11
Home Medications
�Medication �Instructions �Recorded �Confirmed �Last Taken �Type
atorvastatin 80 mg tablet 80 mg PO DAILY High cholesterol 12/19/19 12/07/23 06/04/23 History
amiodarone 200 mg tablet 200 mg PO DAILY 30 days #30 tabs 03/09/23 12/07/23 06/04/23 Rx
clopidogrel 75 mg tablet 75 mg PO DAILY #30 tabs 03/09/23 12/07/23 06/04/23 Rx
metoprolol succinate 25 mg 25 mg PO BID Blood pressure 30 03/09/23 12/07/23 06/04/23 Rx
tablet,extended release 24 hr days #60 tabs
ferrous sulfate 325 mg (65 mg 325 mg PO NOON Supplement 04/12/23 12/07/23 06/03/23 History
iron) tablet (Iron (ferrous
sulfate))
sertraline 50 mg tablet 75 mg PO DAILY Depression 04/12/23 12/07/23 06/04/23 History
aspirin 81 mg tablet,delayed 81 mg PO DAILY Blood Clot 06/04/23 12/07/23 06/04/23 History
release Prevention/Tx
levothyroxine 50 mcg tablet 50 mcg PO DAILY Thyroid 06/04/23 12/07/23 06/04/23 History
metformin 500 mg tablet 500 mg PO BIDWMEAL Diabetes 06/04/23 12/07/23 06/04/23 History
empagliflozin 10 mg tablet 10 mg PO DAILY #30 tabs 06/06/23 12/07/23 Unknown Rx
(Jardiance)
furosemide 40 mg tablet (Lasix) 40 mg PO DAILY #30 tabs 06/06/23 12/07/23 Unknown Rx
lisinopril 5 mg tablet 5 mg PO HS #30 tabs 06/06/23 12/07/23 Unknown Rx
spironolactone 25 mg tablet 12.5 mg (1/2 x 25 mg) PO DAILY #30 06/06/23 12/07/23 Unknown Rx
tabs
Review of Systems
Vitals / Labs / Diagnostic Testing
Vital Signs
Temp Pulse Resp BP Pulse Ox
98.1 F 56 17 105/55 93
12/07/23 08:00 12/07/23 10:30 12/07/23 10:30 12/07/23 10:30 12/07/23 10:30
Lab Data
12/07/23 05:49
12/07/23 06:42
Laboratory Results
12/07/23
05:49
PT 13.6
INR 1.04
APTT 34.3
Diagnostic Testing:
Physical Exam
-
HEENT: Normocephalic, Anicteric and Moist Mucous Membranes
Cardiovascular: S1/S2, Regular Rhythm, Murmur (Systolic murmur heard along the left sternal border), Peripheral Edema (Negative) and JVD (Negative)
Respiratory: Clear, Wheeze (Negative), Rales (Negative ), Non-Labored Respirations and Other (hypoxic through the night (probably LOLY)- currently on 1L O2)
GI: Soft, Non Distended, Non Tender and Normal Bowel Sounds
Neurology: Awake, Alert, Oriented, AO x 3 and No Motor Deficits
Skin: Warm and Dry
General: Comfortable
Exam:
Right carotid pulse decreased compared to left side.
Right radial and ulnar present and strong. Left radial pulse absent (CABG site). Left ulnar pulse present and strong.
Left femoral pulse present but weaker than right femoral pulse.
Right and left pedal pulses present and strong.
Assessment
-
Patient is a 58yo M with PMH significant for prior type a aortic dissection s/p repair, CAD, HTN, NIDDM and who presents with evidence of new intimal tear along the distal aspect of metallic stent along the distal aortic arch on CTA. Patient
remains symptom-free since arrival in ED.
#Aortic Dissection
- Continue Cardene and esmolol gtt with the goal of keeping SBP < 110 and HR 50-60.
- Hold Toprol for now in case of potential surgery
- Appreciate cardiology- planning on echo
- Appreciate vascular surgery-will follow-up patient in afternoon
# History of CAD
- No chest pain at this time.
- EKG shows LBBB (chronic) and right axis deviation. Troponin WNL.
- Continue ASA daily, Lipitor.
#Paroxysmal Atrial Fibrillation
- Currently in sinus rhythm
- Continue amiodarone
- Remain off OAC per cardiology due to history of hematemesis
# Low hgb
-Patient is anemic at baseline and does take iron supplements at home (does not know the reason for anemia)
-Hemoglobin here is 11.8 which is around his baseline
# History of HFrEF
- Currently no signs of volume overload. Patient is not receiving any fluids.
- Receiving Lasix 40 and Aldactone 12.5.
- Output is good. we will continue to monitor I/Os and daily weights.
# History of NIDDM
- Metformin and Jardiance held
- Blood glucose currently controlled on SSI
#Anxiety / Depression
- Continue sertraline.
#DVT Prophylaxis
-SCD
#Diet
- NPO
[2023-12-07 11:57] LABS: Glucose - Point of Care 116 mg/dl (70-99)
--- NOTE | 2023-12-07 12:00 | PTCARENOTE ---
No significant change in patient assessment. Remains pain free, no SOB. Cardene and Esmolol gtts titrated per VS parameters.
--- NOTE | 2023-12-07 14:45 | PTCARENOTE ---
SBP 88 while on Cardene gtt, titrated per parameters. Patient denies dizziness. No other complaints offered.
--- NOTE | 2023-12-07 15:10 | W.PN.HOSP.TC ---
Addendum entered and electronically signed by Jefferson Christie MD 12/07/23 21:26:
Attending Addendum-
I saw and evaluated the patient. I reviewed the resident�s note and agree with findings and plan as documented in the resident�s note. Sub: Patient seen with present. Denies CP SOB. 'i feel fine' Full 12 point ROS reviewed and negative except
as documented Exam: Vitals reviewed in chart GEN-NAD heart RRR lungs crackles at abses abd soft LE no edema
#Aortic Dissection
- s/p repair Dr. Diaz 01/27
- cont care in ICU
- CTA 12/06-Post repair of type A aortic dissection. new intimal tear along the distal aspect of metallic stent along the distal aortic arch
- Keep SBP < 120 and HR < 60.
- cont nicardipine gtt titrate to maintain SBP 100-120
- cont esmolol gtt titrate to maintain HR < 60 for anti impulse therapy
- Vascular Surgery input appreciated
- case d/w Dr. Diaz ([facility]) - continue aggressive blood pressure management and observation. If he remains pain-free and has well-controlled blood pressure on oral regimen we will plan for short interval follow-up
- monitor vitals fluid status closely
#ASCVD/CAD
- PCI- 01/28
- Stable. No anterior chest pain
- EKG with known LBBB. Troponin is undetectable.
- cont asa BB statin
# Paroxysmal Atrial Fibrillation
- Stable. Continue amiodarone, hold metoprolol-cont esmolol gtt
- Patient is not maintained on chronic OAC therapy - presumably due to known aortic aneurysm / dissection.
# Chronic HFrEF
- Stable. No evidence of acute volume overload by exam.
- Echo- 12/06-When compared to the prior study from 06/04/2023, the LVEF has improved from 35-40% to 50-55%
- Continue usual Lasix and Aldactone dosing.
- Hold SGLT2 inhibitor acutely.
- Follow I/Os, daily weights, etc.
# Benign Hypertension
- Aggressive control / anti-impulse therapy as noted above.
- hold lisinopril for now
# Leukocytosis
- mild
- likely stress related
- trend
# DM-II
- Stable. Hold PO med regimen acutely.
- Follow glucose and cover with SSI as needed.
# Anxiety / Depression
- Continue sertraline.
# Hypothyroidism
- cont levothyroxine
# Obesity due to excess calories
- s/p sleeve gastrectomy.
- Encourage healthy diet and regular activity with goal of weight reduction.
DVT Prophylaxis: SCDs
Code Status: Full
CC Note
Due to a high probability of clinically significant, life-threatening deterioration, the patient required a high level of preparedness to intervene emergently. I personally spent this critical care time directly and personally managing the patient.
This critical care time included obtaining a history; examining the patient; ordering and review of studies and STAT labs; arranging urgent treatment with development of a management plan; evaluation of patient's response to treatment; reassessment;
and, discussions with other providers.
This critical care time was performed to assess and manage the high probability of imminent, life-threatening deterioration that could result in multi-organ failure. It was exclusive of separately billable procedures and treating other patients and
teaching time.
Total critical care time: Approximately 60 minutes
Original Note:
Today's Communication/Plan
-
Tight blood pressure control
Continue to monitor
Assessment / Plan
Assessment / Plan
56-year-old male with past medical history of aortic dissection s/p repair in 2022 ASCVD, HTN, DM-II presented to the ED complaining of upper back pain. Found to have aortic dissection on imaging.
#Aortic dissection
ICU
CT revealed no area of dissection/dilation of the distal end of the graft/stent
Keep SBP < 110 and HR < 60
IV nicardipine and esmolol�titrate for BP control
hold home metoprolol
If heart rate increase, consider switch to labetalol for dual effect
Vascular spoke to Dr. Diaz who did her previous aortic repair
Continue BP management at
If patient remains pain-free and BP controlled on p.o. meds, they can follow-up with Dr. Diaz as outpatient.
# ASCVD
Stable, no anterior chest pain
EKG shows known LBBB. Troponin undetectable
Continue ASA, statin, hold metoprolol while on esmolol drip per cardiology
# Paroxysmal A-fib
Stable, continue Amio, hold metoprolol per cards
Not on any chronic anticoagulation therapy presumably due to known aortic aneurysm/dissection
#Chronic HFrEF
Prior echo LVEF 35%
No evidence of acute volume overload
Continue Lasix and Aldactone
Hold SGLT2 inhibitor acutely
Follow I's and O's/daily weights
#Benign hypertension
Aggressive control with drips as noted above
Adjust as needed
#Type 2 diabetes
Hold p.o. meds acutely
Cover with SSI's as needed
Hemoglobin A1c 6.1
#Anxiety/depression
Continue sertraline
#Obesity due to excess calories
Status post gastrectomy sleeve
Encouraged healthy diet
DVT prophylaxis SCDs
Diabetic diet
Status full code
Anticipated Discharge: > 48 hours
Subjective/Interval History
-
Date of Service: December 07, 2023
Objective Data
-
Labs:
Laboratory Results
12/07/23 12/07/23
05:49 06:42
WBC 10.9 H
Hgb 11.8 L
Hct 35.3 L
Plt Count 359
PT 13.6
INR 1.04
APTT 34.3
Sodium Cancelled 139
Potassium Cancelled 4.2
Chloride Cancelled 103
Carbon Dioxide Cancelled 24
BUN Cancelled 24 H
Creatinine Cancelled 0.8
Glucose Cancelled 129 H
Calcium Cancelled 9.1
Vital Signs:
Vital Signs
Temp Pulse Resp BP Pulse Ox
97.9 F 52 18 88/50 91
12/07/23 11:43 12/07/23 13:30 12/07/23 13:30 12/07/23 13:30 12/07/23 13:30
I&O
12/06/23 12/07/23 12/08/23
06:59 06:59 06:59
Intake Total 74.1 / 135.7 1036.8 / 1036.8
Output Total 400 / 400 1125 / 1125
Balance -325.9 / -264.3 -88.2 / -88.2
Review of Systems
-
History Source: Patient
Respiratory: Reports No Symptoms
Cardiac: Reports No Symptoms
Abdomen/GI: Reports No Symptoms
Genitourinary: Reports No Symptoms
Neuro: Reports No Symptoms
Physical Exam
-
General: No Apparent Distress
Respiratory: Clear to Auscultation
Cardiac: Regular Rhythm, S1/S2 and Murmur (Best heard at sternal boarder)
GI: Soft, Nontender and Nondistended
Musculoskeletal: No Edema
Skin: Warm
Neuro: AO x 3
Psych: Calm
--- NOTE | 2023-12-07 16:00 | PTCARENOTE ---
Patient remains stable. No c/o pain. Cardene off due to SBP 88. Esmolol was decreased to 50mcg at 1330, HR 54.at 1600 ECHO performed at bedside. Patient falling asleep during procedure. Patient noted with significant sleep apnea during procedure
with snorous respirations with resumption of resps. Oxygen levels maintained.
[2023-12-07 16:43] LABS: Glucose - Point of Care 220 mg/dl (70-99)
[2023-12-07] MEDS: NOVOLOG FLEXPEN-MODERATE RESISTANCE 3 UNITS SC (17:17)
--- NOTE | 2023-12-07 19:19 | PTCARENOTE ---
Report endorsed to NELY Camp. Questions answered.
[2023-12-07 23:17] LABS: Glucose - Point of Care 82 mg/dl (70-99)
[2023-12-08] VITALS (21 sets, daily range): BP systolic 107–142; BP diastolic 46–79; BMI 33.9
[2023-12-08] MEDS: BREVIBLOC 2500 MG 250 IV ×2 (01:37→08:50)
[2023-12-08 04:44] LABS: Hematocrit 34.3 % (39.0-52.0); Hemoglobin 11.5 g/dL (13.0-18.0); Mean Corp Hgb Conc. 33.5 g/dL (33.0-37.0); Mean Corpuscular Hgb 28.8 pg (27.0-31.0); Mean Platelet Volume 9.5 fL (7.4-10.4); Platelet Count 318 10^3/uL (130-400); Red Blood Cell Count 3.99 10^6/uL (4.70-6.10); Red Cell Dist. Width 14.1 % (11.5-14.5); White Blood Cell Count 8.9 10^3/uL (4.8-10.8)
[2023-12-08 05:17] LABS: ALT (SGPT) 34 U/L (0-50); AST (SGOT) 33 U/L (17-59); Albumin 3.6 g/dl (3.5-5.0); Alkaline Phosphatase 84 U/L (38-126); Blood Urea Nitrogen 24 mg/dl (9-20); Calcium 8.7 mg/dl (8.4-10.2); Carbon Dioxide 25 mmol/L (22-30); Chloride 104 mmol/L (98-107); Estimated Creatinine Clearance 116 ml/min; Glucose 100 mg/dl (70-99); Potassium 4.5 mmol/L (3.5-5.1); Sodium 139 mmol/L (135-145); Total Bilirubin 0.5 mg/dl (0.2-1.3); Total Protein 6.4 g/dl (6.3-8.2); eGFR > 60.00
[2023-12-08] MEDS: SYNTHROID 50 MCG PO (05:51)
--- NOTE | 2023-12-08 07:14 | W.PN.INTV ---
Addendum entered and electronically signed by Sunil Escalante MD 12/08/23 16:22:
Patient transferred out of ICU. We will sign off. Please call with questions
Addendum entered and electronically signed by Sunil Escalante MD 12/08/23 09:31:
Reviewed plan briefly with cardiology
Will start oral metoprolol 25 mg every 6 hours
Will give 1 dose now
Discontinue esmolol at 15-20 minutes later
Out of bed to chair
Diet has been advanced
Will await cardiology evaluation later today to determine discharge plans and medication changes if any
Patient has resumed all other medications and continues without symptoms
Instructed patient to contact Dr. Diaz office at [place] post discharge for follow-up plans
Patient does check blood pressure at home regularly, asked him to target systolic pressure per cardiology recommendations
Hope for disposition later today
reviewed with critical care nursing
Original Note:
Today's Communication / Plan
Recommendations
Vascular correspondence reviewed
Advance diet
Transition to oral regimen, modifications per cardiology
Close follow-up with cardiology post to discharge with follow-up plans at [facility] as outpatient
Disposition efforts
Assessment
-
Patient is a 58yo M with PMH significant for prior type a aortic dissection s/p repair, CAD, HTN, NIDDM and who presents with evidence of new intimal tear along the distal aspect of metallic stent along the distal aortic arch on CTA. Patient
remains symptom-free since arrival in ED.
#Aortic Dissection
-Patient weaned off Cardene overnight
-Remains on esmolol
-Vascular plans reviewed, outpatient follow-up at [place]
-Consider resuming outpatient oral regimen
Close follow-up with cardiology as outpatient confirming adequate blood pressure
# History of CAD
- No chest pain at this time.
- EKG shows LBBB (chronic) and right axis deviation. Troponin WNL.
- Continue ASA daily, Lipitor.
#Paroxysmal Atrial Fibrillation
- Currently in sinus rhythm
- Continue amiodarone
- Remain off OAC per cardiology due to history of hematemesis
# Low hgb
-Patient is anemic at baseline and does take iron supplements at home (does not know the reason for anemia)
-Hemoglobin stable
# History of HFrEF
- Currently no signs of volume overload. Patient is not receiving any fluids.
- Receiving Lasix 40 and Aldactone 12.5.
- Output is good. we will continue to monitor I/Os and daily weights.
# History of NIDDM
- Metformin and Jardiance held
- Blood glucose currently controlled on SSI
#Anxiety / Depression
- Continue sertraline.
#DVT Prophylaxis
-SCD
#Diet
-Advance diet
Subjective Dataa
Subjective Data
Date of Service:
Date of Service: December 08, 2023
Subjective:
Patient is without complaints. Denies back pain, shortness of breath
Objective Data
Data Reviewed
Vital Signs / I&O / Oxygen:
Vital Signs
Temp Pulse Resp BP Pulse Ox
98.2 F 50 14 119/63 97
12/08/23 03:30 12/08/23 06:45 12/08/23 06:45 12/08/23 06:00 12/08/23 06:45
Intake and Output
12/07/23 12/08/23 12/09/23
06:59 06:59 05:59
Intake Total 74.1 / 135.7 1594.7 / 1594.7
Output Total 400 / 400 2049
Balance -325.9 / -264.3 -455.3 / -455.3
SaO2 97
Nasal Cannula flow liters per 1
minute
Physical Exam
General: Comfortable
HEENT: Normocephalic and Anicteric
Cardiovascular: Regular Rhythm, Murmur (2/6), Rub (n) and Peripheral Edema
Respiratory: Wheeze (n), Crackles (n), Rhonchi (n) and Non-Labored Respirations
GI: Soft, Non Distended and Non Tender
Neurology: Awake, Alert and No Motor Deficits
Skin: Cyanosis (n), Jaundice (n) and Rash (n)
Labs/Micro/Reports
Lab Data
12/08/23 04:20
12/08/23 04:20
[2023-12-08 07:23] LABS: Glucose - Point of Care 100 mg/dl (70-99)
--- NOTE | 2023-12-08 08:00 | PTCARENOTE ---
recd pt, handoff in room, pleasant cooperative and without pain. awaiting breakfast. Esmolol infusion as documented. Aware of plans for the day.
[2023-12-08] MEDS: NOVOLOG FLEXPEN-MODERATE RESISTANCE SC ×3 (08:02→17:35)
[2023-12-08] MEDS: LASIX 40 MG PO (08:03)
[2023-12-08] MEDS: LIPITOR 80 MG PO (08:03)
[2023-12-08] MEDS: PACERONE 200 MG PO (08:03)
[2023-12-08] MEDS: ALDACTONE 12.5 MG PO (08:03)
[2023-12-08] MEDS: ASPIR LOW (ENTERIC COATED) 81 MG PO (08:03)
[2023-12-08] MEDS: ZOLOFT 75 MG PO (08:04)
--- NOTE | 2023-12-08 08:16 | W.PN.VS ---
Today's Communication / Plan
-
See plan below for today 12/08/2023.
Assessment/Plan
-
History of type a aortic dissection repaired at [facility] with Thoraflex graft/frozen elephant trunk. Now with retrograde flow distal aspect of frozen elephant trunk in the descending thoracic aorta that propagates retrograde into
the more proximal descending thoracic aorta. Unclear if this is the etiology of his pain. Regardless recommend tight blood pressure control. Per Jodee's note yesterday, he had spoken to desat I at [facility] patient will follow-up
as an outpatient with him for possible TEVAR/extension stent grafting.
-
Total Time Spent with Patient (in minutes): 15
Subjective Data
-
Date of Service: December 08, 2023
Seen and examined. Patient is without any complaints. He notes in fact that his back pain resolved by the time he got to the emergency room. No recurrent pain. No chest pain. No lower extremity pain or abdominal pain.
Objective Data
-
Vital Signs
Temp Pulse Resp BP Pulse Ox
98.2 F 51 14 124/63 97
12/08/23 07:00 12/08/23 08:03 12/08/23 06:45 12/08/23 08:03 12/08/23 06:45
Intake and Output
12/07/23 12/08/23 12/09/23
06:59 06:59 05:59
Intake Total 74.1 / 135.7 1594.7 / 1991.3 396.6 / 396.6
Output Total 400 / 400 2049 / 2049
Balance -325.9 / -264.3 -455.3 / -58.7 396.6 / 396.6
Intake:
Oral fluids 420 / 780 360 / 360
IV fluids (Total) 74.1 / 135.7 1174.7 / 1211.3 36.6 / 36.6
Cardene gtt 37.5 / 62.5 387.5 / 387.5
esmolol 36.6 / 73.2 787.2 / 823.8 36.6 / 36.6
Output:
Urine, Voided 400 / 400 2049 / 2049
Lab Results
12/08/23 04:20
12/08/23 04:20
Calcium 8.7 mg/dl (8.4-10.2) 12/08/23 04:20
Total Bilirubin 0.5 mg/dl (0.2-1.3) 12/08/23 04:20
AST 33 U/L (17-59) 12/08/23 04:20
ALT 34 U/L (0-50) 12/08/23 04:20
Alkaline Phosphatase 84 U/L (38-126) 12/08/23 04:20
Total Protein 6.4 g/dl (6.3-8.2) 12/08/23 04:20
Albumin 3.6 g/dl (3.5-5.0) 12/08/23 04:20
Physical Exam
-
Vital signs reviewed. Systolic blood pressure nicely less than 120 mmHg. Heart rate is nicely less than 60. He is awake and alert. Head is normocephalic and atraumatic. Eyes are anicteric. 2+ carotid and upper extremity pulses palpable
bilaterally. Abdomen is soft, nondistended, nontender. Lower extremity with 2+ femoral and pedal pulses palpable bilaterally. Feet are both warm and pink and well-perfused.
--- NOTE | 2023-12-08 09:20 | W.PN.HOSP.TC ---
Today's Communication/Plan
-
SBP < 120, HR< 60. Metoprolol 25q6hr monitoring HR <60
Discharge pending PO meds response and vascular/cardiology sign off
Assessment / Plan
Assessment / Plan
56-year-old male with past medical history of aortic dissection s/p repair in 2022 ASCVD, HTN, DM-II presented to the ED complaining of upper back pain. Found to have aortic dissection on imaging.
#Aortic dissection
ICU
CTA 12/07/23 -Post repair of type A aortic dissection. new intimal tear along the distal aspect of metallic stent along the distal aortic arch
Keep SBP < 120 and HR < 60
IV nicardipine weaned off overnight, BP stable
esmolol gtt HR <60 --> d/c after first dose of metoprolol to evaluate HR
Continue on metoprolol 25 PO q6Hr pending adequate HR control
Vascular spoke to Dr. Diaz who did her previous aortic repair
Continue BP management at
If patient remains pain-free and BP controlled on p.o. meds, they can follow-up with Dr. Diaz as outpatient.
Potential d/c today per vascular and cardiology clearance
# ASCVD
Stable, no anterior chest pain
EKG shows known LBBB. Troponin undetectable
Continue ASA, statin, restart metoprolol per cardiology/vascular
# Paroxysmal A-fib
Stable, continue Amio, restart metoprolol
Not on any chronic anticoagulation therapy presumably due to known aortic aneurysm/dissection
#Chronic HFrEF
Prior echo LVEF 35%
No evidence of acute volume overload
Continue Lasix and Aldactone
Hold SGLT2 inhibitor acutely
Follow I's and O's/daily weights
#Benign hypertension
Aggressive control PO meds per above
Adjust as needed
#Type 2 diabetes
Hold p.o. meds acutely
Cover with SSI's as needed
Hemoglobin A1c 6.1
#Anxiety/depression
Continue sertraline
#Anemia
Baseline. On iron supplements at home. stable
#Obesity due to excess calories
Status post gastrectomy sleeve
Encouraged healthy diet
DVT prophylaxis SCDs
Diabetic diet
Status full code
Anticipated Discharge: 24 - 48 hours
Subjective/Interval History
-
Date of Service: December 08, 2023
Objective Data
-
Labs:
Laboratory Results
12/08/23
04:20
WBC 8.9
Hgb 11.5 L
Hct 34.3 L
Plt Count 318
Sodium 139
Potassium 4.5
Chloride 104
Carbon Dioxide 25
BUN 24 H
Creatinine 0.9
Glucose 100 H
Calcium 8.7
Total Bilirubin 0.5
AST 33
ALT 34
Alkaline Phosphatase 84
Vital Signs:
Vital Signs
Temp Pulse Resp BP Pulse Ox
98.2 F 56 16 124/63 96
12/08/23 07:00 12/08/23 08:50 12/08/23 08:15 12/08/23 08:50 12/08/23 08:15
I&O
12/07/23 12/08/23 12/09/23
06:59 06:59 05:59
Intake Total 74.1 / 135.7 1594.7 / 1991.3 433.2 / 433.2
Output Total 400 / 400 2049 / 2049 350 / 350
Balance -325.9 / -264.3 -455.3 / -58.7 83.2 / 83.2
Review of Systems
-
History Source: Patient
EENT: Reports No Symptoms Reported
Respiratory: Reports No Symptoms
Cardiac: Reports No Symptoms
Abdomen/GI: Reports No Symptoms
Neuro: Reports No Symptoms
Physical Exam
-
General: No Apparent Distress and Comfortable
Respiratory: Clear to Auscultation
Cardiac: Regular Rhythm, S1/S2 and Murmur (Best heard at right sternal border)
GI: Soft, Nontender and Normal Bowel Sounds
Musculoskeletal: No Edema
Skin: Warm
Neuro: AO x 3
Psych: Calm
[2023-12-08] MEDS: LOPRESSOR 25 MG PO ×3 (09:38→17:35)
--- NOTE | 2023-12-08 10:37 | PTCARENOTE ---
PO lopressor given, esmolol dcd 15 min after PO dose, Pt OOB in chair. No change in assessment, feeling well.
--- NOTE | 2023-12-08 10:54 | W.PN.CARDCBS ---
Today's Communication / Plan
-
Restart lisinopril
Esmolol stopped, now on metoprolol
Restart Jardiance
Eventual restart of clopidogrel?
Can transfer from ICU.
Discharge in 24 to 48 hours
Impression / Plan
-
PCP: Dr. Greg Trejo
Nurse Outreach Case Manager: Dr. Veloz
Impression:
Presentation with back pain, possibly related to retrograde flow at distal end of for flex graft/frozen elephant trunk
CAD
CABG x2 (LEACH - LAD, free radial - PDA) 2003
stable coronary disease with patent grafts by cath 11/18/2018
h/o Debakey I aortic dissection s/p redo sternotomy, AV resuspension, ascending, repair of innominate artery, reimplantation of R radial artery CABG graft to aorta and FET (total arch replacement 30mm Thoraflex and 32mm TEVAR) [facility], Dr. López
Diaz 01/28/23
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
Paroxysmal atrial fibrillation
Linq monitor implanted 04/12/2023
Not chronically anticoagulated due to h/o hemoptysis
Chronic amiodarone therapy
Chronic LBBB
h/o L CVAs 03/2017
TIA 03/04/17
HTN
HLD
DM2
Hypothyroidism
GERD
LOLY
Obesity s/p sleeve gastrectomy 2019
Echo 07/25/2021: EF 59%, mild cLVH, mild MR, mildly dilated RV, mildly dilated ascending aorta 4.0cm
[facility] EF 40-45%, moderate RV dysfunction, inferior septal hypokinesis, trace TR
Echo 06/04/2023: EF 35 to 40%, globally hypokinetic ventricle, flattening of interventricular septum consistent with RV pressure and volume overload, dilated RV, severely dilated left atrium, moderate MR, mild TR, PAP 46 mmHg, aortic root measures
4.2 cm at sinus of Valsalva and 4.6 cm and ascending portion of thoracic aorta
Echo 12/07/2023: EF 50-55%, septal contraction abnormality, dilated RV, dilated LA, mild-moderate eccentric mitral regurgitation, trace aortic regurgitation, normal aortic valve, sinus of Valsalva 4.6 cm, false lumen noted in the descending thoracic
aorta
Plan:
He appears stable at this time despite back pain with a history of type A dissection repair with frozen elephant trunk.
At present no intervention is required. Optimal strategy is blood pressure and heart rate control.
Restart lisinopril 10 mg daily which had been on hold. Restart Jardiance. Patient had been on clopidogrel, will consider restarting this.
Outpatient metoprolol had been metoprolol ER 25 twice daily. Restart metoprolol tartrate 25 every 6 and consolidate in AM.
From my standpoint, could leave ICU.
Time: 34 minutes
HPI: Juan M is a 57 year old male with PMH of CAD s/p CABG, type A aortic dissection s/p repair, paroxysmal atrial fibrillation, CVA, HTN, HLD, DM2, and LOLY who presented to [facility] for evaluation of SOB. He notes that for the past few days he has had
some increased SOB. He was seen by his PCP who felt that anxiety may be contributing to his symptoms and he was started on medication for anxiety. Last night he then states he woke up in the middle of the night, gasping for air. He notes this was
uncommon for him, and he was unable to fall back asleep. He thought he would try to participate in cardiac rehab today, however when doing his first exercise, he became extremely SOB and knew he would not be able to continue exercising. He was sent
to the ER for further evaluation and was found to have evidence of acute heart failure with elevated proBNP and pleural effusions. He was given a dose of IV lasix in the ER and notes his breathing has improved and he has been responding quickly to
the lasix. He has been admitted for further evaluation and treatment and cardiology consulted for evaluation. He notes he has had increased abdominal bloating and mild LE edema. Has not noticed weight gain, however weight recorded in ER is 14lbs
higher than last OV weight 03/2023. Denies any chest pain or palpitations.
Progress Note - Nurse Outreach Case Manager
Subjective
Date of Service: December 08, 2023:
He feels well. Daughter at bedside.
Current meds: Amiodarone 200 mg a day, aspirin 81 mg a day, atorvastatin 80 mg a day, levothyroxine 50 mcg daily, spironolactone 12.5 mg daily sertraline 75 mg a day, furosemide 40 mg a day, metoprolol tartrate 25 every 6 (clopidogrel, Jardiance,
lisinopril currently on hold)
Outpatient meds: Clopidogrel Jardiance, furosemide 40 mg a day, lisinopril 5 mg a day, metoprolol succinate 25 twice daily, spironolactone 12.5 mg daily
Allergies: Quinolones and morphine
127/67, pulse 58, intake and output -600 mL, afebrile, intake and output -600 mL, weight is 113.2 kg, up 1.2 kg, head neck exam unremarkable, lungs are clear, regular rate and rhythm, abdomen obese extremities without clubbing cyanosis or edema
distal pulses intact.
Chest x-ray blunting, mild vascular congestion, Linq, cardiomegaly
EKG sinus bradycardia, rightward axis, left bundle
Hemoglobin 11.5, white count 8.9, platelets 318, BUN/creatinine 24 and 0.9, potassium 4.5, troponin is less than 0.12
Objective
Labs:
12/08/23 04:20
12/08/23 04:20
Labs
Hgb 11.5 g/dL (13.0-18.0) L 12/08/23 04:20
Hct 34.3 % (39.0-52.0) L 12/08/23 04:20
Plt Count 318 10^3/uL (130-400) 12/08/23 04:20
PT 13.6 Sec (11.4-14.6) 12/07/23 05:49
INR 1.04 12/07/23 05:49
APTT 34.3 Sec (23.4-35.0) 12/07/23 05:49
Sodium 139 mmol/L (135-145) 12/08/23 04:20
Potassium 4.5 mmol/L (3.5-5.1) 12/08/23 04:20
BUN 24 mg/dl (9-20) H 12/08/23 04:20
Creatinine 0.9 mg/dL (0.7-1.3) 12/08/23 04:20
Glucose 100 mg/dl (70-99) H 12/08/23 04:20
Troponins
12/07/23
00:22
Troponin I < 0.012
Vital Signs and I&O:
Vital Signs
Temp Pulse Resp BP Pulse Ox
36.8 C 58 19 127/67 95
12/08/23 07:00 12/08/23 10:30 12/08/23 10:30 12/08/23 10:04 12/08/23 10:04
Vital Signs
Temp Pulse Resp BP Pulse Ox
36.8 C 58 19 127/67 95
12/08/23 07:00 12/08/23 10:30 12/08/23 10:30 12/08/23 10:04 12/08/23 10:04
Intake & Output
12/06/23 12/07/23 12/08/23 12/09/23
07:59 07:59 07:59 06:59
Intake Total 135.7 / 257.3 1929.7 / 1966.3 123.2 / 123.2
Output Total 400 / 650 2049 / 2049 775 / 775
Balance -264.3 / -392.7 -120.3 / -83.7 -651.8 / -651.8
Physical Exam
Physical Exam
See above
[2023-12-08 11:52] LABS: Glucose - Point of Care 79 mg/dl (70-99)
--- NOTE | 2023-12-08 11:57 | CM ---
CM following re: discharge planning.
Reviewed pt's chart, met with pt.
Pt is a 58 year old male, admitted with primary dx of Aortic dissection.
Pt reports he lives with spouse 2SH, 3 steps to enter, has 3 supportive children. pt described himself as independent in all areas [employer], drives, works.
PCP: Tristen Mukherjee
Pharmacy: [facility]
D/C plan: home with anticipated no needs. family to transport at discharge.
CM will follow with discharge plan updates as hospitalization
[2023-12-08] MEDS: ZESTRIL 10 MG PO (12:34)
[2023-12-08] MEDS: FARXIGA 10 MG PO (12:34)
--- NOTE | 2023-12-08 15:44 | PTCARENOTE ---
No change, tolerating OOB, presently washing in bathroom. VS noted. Awaiting IMU bed.
[2023-12-08 17:36] LABS: Glucose - Point of Care 82 mg/dl (70-99)
[2023-12-08 22:24] LABS: Glucose - Point of Care 98 mg/dl (70-99)
[2023-12-09] VITALS (16 sets, daily range): BP systolic 106–154; BP diastolic 46–84; BMI 33.5
[2023-12-09] MEDS: LOPRESSOR PO (01:53)
[2023-12-09 04:39] LABS: Hematocrit 34.5 % (39.0-52.0); Hemoglobin 11.5 g/dL (13.0-18.0); Mean Corp Hgb Conc. 33.3 g/dL (33.0-37.0); Mean Corpuscular Hgb 28.8 pg (27.0-31.0); Mean Corpuscular Volume 86.3 fL (80.0-94.0); Mean Platelet Volume 9.5 fL (7.4-10.4); Platelet Count 305 10^3/uL (130-400); Red Cell Dist. Width 14.1 % (11.5-14.5); White Blood Cell Count 9.4 10^3/uL (4.8-10.8)
[2023-12-09 05:14] LABS: ALT (SGPT) 33 U/L (0-50); AST (SGOT) 33 U/L (17-59); Albumin 3.7 g/dl (3.5-5.0); Alkaline Phosphatase 82 U/L (38-126); Blood Urea Nitrogen 26 mg/dl (9-20); Carbon Dioxide 26 mmol/L (22-30); Chloride 102 mmol/L (98-107); Estimated Creatinine Clearance 116 ml/min; Glucose 94 mg/dl (70-99); Potassium 4.7 mmol/L (3.5-5.1); Sodium 138 mmol/L (135-145); Total Bilirubin 0.4 mg/dl (0.2-1.3); Total Protein 6.4 g/dl (6.3-8.2); eGFR > 60.00
--- NOTE | 2023-12-09 05:32 | PTCARENOTE ---
Addendum entered by Zoë Maradiaga RN 12/09/23 05:44:
HR 50-52 through out the night, SBP 106-115, held 0000 metoprolol due to HR being so low. 2L o2 over night, pt has LOLY, sats drop to 70's while sleeping. Pt offers no complaints at this time.
Original Note:
Pt Aox3, SB on the monitor
[2023-12-09] MEDS: SYNTHROID 50 MCG PO (06:18)
[2023-12-09] MEDS: LOPRESSOR 25 MG PO (06:19)
[2023-12-09] MEDS: NOVOLOG FLEXPEN-MODERATE RESISTANCE SC ×3 (07:26→17:41)
[2023-12-09 07:35] LABS: Glucose - Point of Care 103 mg/dl (70-99)
[2023-12-09] MEDS: LASIX 40 MG PO (07:35)
[2023-12-09] MEDS: LIPITOR 80 MG PO (07:35)
[2023-12-09] MEDS: PACERONE 200 MG PO (07:35)
[2023-12-09] MEDS: ZOLOFT 75 MG PO (07:35)
[2023-12-09] MEDS: ASPIR LOW (ENTERIC COATED) 81 MG PO (07:35)
[2023-12-09] MEDS: ZESTRIL 10 MG PO ×2 (07:36→09:55)
[2023-12-09] MEDS: ALDACTONE 12.5 MG PO (08:29)
[2023-12-09] MEDS: FARXIGA 10 MG PO (08:30)
--- NOTE | 2023-12-09 08:54 | W.PN.CARDCBS ---
Today's Communication / Plan
-
Okay to transfer to telemetry
Lisinopril 20 mg twice daily
Metoprolol ER 25 mg twice daily
Would like to observe overnight and discharge in a.m.
Impression / Plan
-
PCP: Dr. Greg Trejo
Chairperson Anesthesiology: Dr. Veloz
Impression:
Presentation with back pain, possibly related to retrograde flow at distal end of for flex graft/frozen elephant trunk
CAD
CABG x2 (LEACH - LAD, free radial - PDA) 2003
stable coronary disease with patent grafts by cath 11/18/2018
h/o Debakey I aortic dissection s/p redo sternotomy, AV resuspension, ascending, repair of innominate artery, reimplantation of R radial artery CABG graft to aorta and FET (total arch replacement 30mm Thoraflex and 32mm TEVAR) [facility], Dr. López
Diaz 01/28/23
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
Paroxysmal atrial fibrillation
Linq monitor implanted 04/12/2023
Not chronically anticoagulated due to h/o hemoptysis
Chronic amiodarone therapy
Chronic LBBB
h/o L CVAs 03/2017
TIA 03/04/17
HTN
HLD
DM2
Hypothyroidism
GERD
LOLY
Obesity s/p sleeve gastrectomy 2019
Echo 07/25/2021: EF 59%, mild cLVH, mild MR, mildly dilated RV, mildly dilated ascending aorta 4.0cm
Post-Op LAURA 01/28/2023 @[facility]: EF 40-45%, moderate RV dysfunction, inferior septal hypokinesis, trace TR
Echo 06/04/2023: EF 35 to 40%, globally hypokinetic ventricle, flattening of interventricular septum consistent with RV pressure and volume overload, dilated RV, severely dilated left atrium, moderate MR, mild TR, PAP 46 mmHg, aortic root measures
4.2 cm at sinus of Valsalva and 4.6 cm and ascending portion of thoracic aorta
Echo 12/07/2023: EF 50-55%, septal contraction abnormality, dilated RV, dilated LA, mild-moderate eccentric mitral regurgitation, trace aortic regurgitation, normal aortic valve, sinus of Valsalva 4.6 cm, false lumen noted in the descending thoracic
aorta
Plan:
Overall he looks well. It remains unclear whether his back pain was related to dissection or possibly musculoskeletal.
I had uptitrated metoprolol but he is bradycardic. Resume metoprolol ER 25 mg twice daily which is his baseline.
Uptitrate lisinopril to 20 mg twice daily.
He is back on an SGLT2 antagonist, Farxiga and would resume Jardiance at discharge. Continue spironolactone.
Restart clopidogrel.
I would like 1 more day of him ambulating, etc. to make sure he is stable. Currently he is awaiting a bed in IMU, could go to telemetry.
Hopefully for discharge in a.m. with follow-up to Dr. Diaz.
HPI: Juan M is a 57 year old male with PMH of CAD s/p CABG, type A aortic dissection s/p repair, paroxysmal atrial fibrillation, CVA, HTN, HLD, DM2, and LOLY who presented to [facility] for evaluation of SOB. He notes that for the past few days he has had
some increased SOB. He was seen by his PCP who felt that anxiety may be contributing to his symptoms and he was started on medication for anxiety. Last night he then states he woke up in the middle of the night, gasping for air. He notes this was
uncommon for him, and he was unable to fall back asleep. He thought he would try to participate in cardiac rehab today, however when doing his first exercise, he became extremely SOB and knew he would not be able to continue exercising. He was sent
to the ER for further evaluation and was found to have evidence of acute heart failure with elevated proBNP and pleural effusions. He was given a dose of IV lasix in the ER and notes his breathing has improved and he has been responding quickly to
the lasix. He has been admitted for further evaluation and treatment and cardiology consulted for evaluation. He notes he has had increased abdominal bloating and mild LE edema. Has not noticed weight gain, however weight recorded in ER is 14lbs
higher than last OV weight 03/2023. Denies any chest pain or palpitations.
Progress Note - Chairperson Anesthesiology
Subjective
Date of Service: December 09, 2023:
PMH/PSH/SH/FH: Reviewed
Current meds: Amiodarone 200 mg a day, aspirin 81 mg a day, atorvastatin 80 mg a day, levothyroxine 50 mcg a day, metoprolol succinate on hold, spironolactone 12.5 mg daily, sertraline 75 mg daily, furosemide 40 mg a day, metoprolol tartrate 25
every 6, lisinopril 10 mg daily, Farxiga 10 mg a day
140/76, pulse 55, respiratory rate 17, temp 36.7, head neck exam unremarkable, lungs clear, regular rate and rhythm JVD okay, abdomen benign extremities without clubbing cyanosis or edema
Hemoglobin 11.5, BUN and creatinine 26 and 0.9, potassium 4.7.
Objective
Labs:
12/09/23 04:17
12/09/23 04:17
Labs
Hgb 11.5 g/dL (13.0-18.0) L 12/09/23 04:17
Hct 34.5 % (39.0-52.0) L 12/09/23 04:17
Plt Count 305 10^3/uL (130-400) 12/09/23 04:17
PT 13.6 Sec (11.4-14.6) 12/07/23 05:49
INR 1.04 12/07/23 05:49
APTT 34.3 Sec (23.4-35.0) 12/07/23 05:49
Sodium 138 mmol/L (135-145) 12/09/23 04:17
Potassium 4.7 mmol/L (3.5-5.1) 12/09/23 04:17
BUN 26 mg/dl (9-20) H 12/09/23 04:17
Creatinine 0.9 mg/dL (0.7-1.3) 12/09/23 04:17
Glucose 94 mg/dl (70-99) 12/09/23 04:17
Troponins
12/07/23
00:22
Troponin I < 0.012
Vital Signs and I&O:
Vital Signs
Temp Pulse Resp BP Pulse Ox
36.7 C 55 17 140/76 95
12/09/23 07:40 12/09/23 08:29 12/08/23 12:15 12/09/23 08:29 12/08/23 19:29
Vital Signs
Temp Pulse Resp BP Pulse Ox
36.7 C 55 17 140/76 95
12/09/23 07:40 12/09/23 08:29 12/08/23 12:15 12/09/23 08:29 12/08/23 19:29
Intake & Output
12/07/23 12/08/23 12/09/23 12/10/23
08:59 08:59 07:59 07:59
Intake Total
Output Total
Balance
Physical Exam
Physical Exam
See above
--- NOTE | 2023-12-09 09:07 | PTCARENOTE ---
recd [id number] handoff at bedside, assessment as documented, in good spirits. ordered and ate breakfast, appetite good. VS noted. self AM care and shampoo, clean gown. seen by Dr. Miles, presently in chair in no distress.
--- NOTE | 2023-12-09 09:33 | W.PN.HOSP.TC ---
Today's Communication/Plan
-
d/c pending tmrw cardiology
Increased lisinopril 20BID
Metoprolol ER 25 BID
Restarted plavix and SGLT2
Monitor BP
Assessment / Plan
Assessment / Plan
56-year-old male with past medical history of aortic dissection s/p repair in 2022 ASCVD, HTN, DM-II presented to the ED complaining of upper back pain. Found to have aortic dissection on imaging.
#Aortic dissection
ICU -> telemetry per cards
CTA 12/07/23 -Post repair of type A aortic dissection. new intimal tear along the distal aspect of metallic stent along the distal aortic arch
Keep SBP < 120 and HR < 60
IV nicardipine weaned off overnight, BP stable
esmolol gtt d/c
BP a bit high this morning 140/76. Change in BP meds made per cards
Metoprolol 25 mg q6hr ->25 mg ER BID
Lisinopril 10mg qd ->20BID
Vascular spoke to Dr. Diaz who did his previous aortic repair
If patient remains pain-free and BP controlled on p.o. meds, they can follow-up with Dr. Diaz as outpatient.
Discharge tmrw pending adequate bp control and sign off per cards
# ASCVD
Stable, no anterior chest pain
EKG shows known LBBB. Troponin undetectable
Continue ASA, statin, restart metoprolol per cardiology/vascular
Restart clopidogrel 75mg qd
# Paroxysmal A-fib
Stable, continue Amio, restart metoprolol
Not on any chronic anticoagulation therapy presumably due to known aortic aneurysm/dissection
#Chronic HFrEF
Prior echo -2023 LVEF 35%
No evidence of acute volume overload
Continue Lasix and Aldactone
Restart SGLT2 inhibitor
Follow I's and O's/daily weights
#Benign hypertension
Aggressive control PO meds per above
Adjust as needed
#Type 2 diabetes
Restart SGLT2, continue to hold metformin
Cover with SSI's as needed
Hemoglobin A1c 6.1
#Anxiety/depression
Continue sertraline
#Anemia
Baseline. On iron supplements at home. stable
#Obesity due to excess calories
Status post gastrectomy sleeve
Encouraged healthy diet
DVT prophylaxis SCDs
Diabetic diet
Status full code
Anticipated Discharge: Within 24 hours
Subjective/Interval History
-
Date of Service: December 09, 2023
Objective Data
-
Labs:
Laboratory Results
12/09/23
04:17
WBC 9.4
Hgb 11.5 L
Hct 34.5 L
Plt Count 305
Sodium 138
Potassium 4.7
Chloride 102
Carbon Dioxide 26
BUN 26 H
Creatinine 0.9
Glucose 94
Calcium 9.0
Total Bilirubin 0.4
AST 33
ALT 33
Alkaline Phosphatase 82
Vital Signs:
Vital Signs
Temp Pulse Resp BP Pulse Ox
98.1 F 55 17 140/76 95
12/09/23 07:40 12/09/23 08:29 12/08/23 12:15 12/09/23 08:29 12/08/23 19:29
I&O
12/08/23 12/09/23 12/10/23
07:59 06:59 06:59
Intake Total
Output Total
Balance
Review of Systems
-
History Source: Patient
Respiratory: Reports No Symptoms
Cardiac: Reports No Symptoms
Abdomen/GI: Reports No Symptoms
Neuro: Reports No Symptoms
Physical Exam
-
General: Well Developed and Comfortable
Respiratory: Clear to Auscultation
Cardiac: Regular Rhythm, S1/S2 and Murmur
GI: Soft and Nontender
Musculoskeletal: No Edema
Skin: Warm
Neuro: AO x 3
Psych: Calm
[2023-12-09] MEDS: TOPROL XL 25 MG PO ×2 (09:55→19:30)
[2023-12-09] MEDS: PLAVIX 75 MG PO (09:55)
--- NOTE | 2023-12-09 10:19 | PTCARENOTE ---
ambulating in tay, no c/o, no distress, monitor stable. rest of VS noted. med changes, see MAR for times and doses given. pt instructed on new and updated meds.
[2023-12-09 11:35] LABS: Glucose - Point of Care 112 mg/dl (70-99)
--- NOTE | 2023-12-09 14:45 | TRANSFER ---
tsf to 419-02, report and handoff to next RN, in good spirits. stable. questions answered. all belongings sent with pt.
--- NOTE | 2023-12-09 15:02 | PTCARENOTE ---
Received report from Coleen, BULB PACKER. Patient transferred to room 419-2. AOx3, pleasant. HR 50s, sinus pam, 1st degree AV block, BBBC, prolonged QT on telemetry. Updated on plan of care. Encouraged to make needs known.
[2023-12-09] MEDS: APRESOLINE 10 MG IV (16:35)
--- NOTE | 2023-12-09 16:41 | PTCARENOTE ---
Addendum entered by Alicia Mir RN 12/09/23 18:32:
Repeat BP is 138/68.
Addendum entered by Alicia Mir RN 12/09/23 17:41:
One hour post hydralazine, BP is 147/71. Dr. Miles and Dr. Lundberg aware. Recommend rechecking BP in 1 hour.
Original Note:
BP 146/80 at rest. HR maintaining 50s. Dr. Miles made aware. Order received for PRN Hydralazine, given, see MAR. Plan of care ongoing.
[2023-12-09 17:40] LABS: Glucose - Point of Care 91 mg/dl (70-99)
[2023-12-09] MEDS: ZESTRIL 20 MG PO (19:37)
[2023-12-09 20:57] LABS: Glucose - Point of Care 88 mg/dl (70-99)
[2023-12-10 03:00] VITALS: BP 123/67
[2023-12-10 03:44] VITALS: BP 109/50
[2023-12-10] MEDS: SYNTHROID 50 MCG PO (05:56)
[2023-12-10 07:15] VITALS: BP 128/62
[2023-12-10 07:54] LABS: Glucose - Point of Care 134 mg/dl (70-99)
[2023-12-10] MEDS: NOVOLOG FLEXPEN-MODERATE RESISTANCE SC ×2 (07:59→11:30)
[2023-12-10] MEDS: LIPITOR 80 MG PO (08:15)
[2023-12-10] MEDS: LASIX 40 MG PO (08:15)
[2023-12-10] MEDS: ZOLOFT 75 MG PO (08:15)
[2023-12-10] MEDS: PACERONE 200 MG PO (08:15)
[2023-12-10] MEDS: TOPROL XL 25 MG PO (08:16)
[2023-12-10] MEDS: ZESTRIL 20 MG PO (08:16)
[2023-12-10] MEDS: ASPIR LOW (ENTERIC COATED) 81 MG PO (08:16)
[2023-12-10] MEDS: ALDACTONE 12.5 MG PO (08:17)
[2023-12-10] MEDS: PLAVIX 75 MG PO (08:17)
[2023-12-10] MEDS: FARXIGA 10 MG PO (08:20)
[2023-12-10 08:27] LABS: Hematocrit 37.5 % (39.0-52.0); Hemoglobin 12.6 g/dL (13.0-18.0); Mean Corp Hgb Conc. 33.6 g/dL (33.0-37.0); Mean Corpuscular Hgb 28.8 pg (27.0-31.0); Mean Corpuscular Volume 85.8 fL (80.0-94.0); Mean Platelet Volume 9.8 fL (7.4-10.4); Platelet Count 348 10^3/uL (130-400); Red Blood Cell Count 4.37 10^6/uL (4.70-6.10); Red Cell Dist. Width 14.1 % (11.5-14.5); White Blood Cell Count 9.8 10^3/uL (4.8-10.8)
--- NOTE | 2023-12-10 08:37 | W.PN.CARDCBS ---
Addendum entered and electronically signed by Rosa Paredes DO 12/10/23 10:41:
I saw and examined the patient.
The [employer]'s note was reviewed and I agree with the note.
Comment: Patient seen and examined. Sitting out of bed to chair and feeling well. No chest pain/back pain or abdominal pain. No headache. No dizziness. No shortness of breath or edema. Ambulating in room without difficulty
GEN: No distress, awake, alert, oriented x3
HEENT: mmm
LUNGS: CTA b/l, no wheezes/rales
CV: Reg, S1/S2, 1/6 syst murmur
EXT: No clubbing, cyanosis, or edema
NEURO: Gross non-focal
Plan:
Plan:
-Presented with back pain. Unclear if this is related to known dissection or possibly musculoskeletal.
-Appears well, hemodynamically stable with no further back pain this admission
-He has plans to follow-up with Dr. Hamm at [facility]
-Hypertension with elevated blood pressure
-BP better controlled on Toprol 25mg BID, lisinopril 20mg BID, spironolactone 12.5mg daily and furosemide 40mg daily.
-Add amlodipine 5mg QPM.
-Echo 12/06 with EF 50-55%, mild-mod MR as noted above.
-Continue Farxiga 10mg daily while admitted. On Jardiance 10mg daily as OP.
-Continue aspirin, plavix.
-Paroxysmal atrial fibrillation in sinus rhythm
-continue amiodarone 200mg daily for h/o PAF.
- Linq in place. Not on OAC chronically due to hemoptysis.
-No afib noted on tele.
-Will need follow up w/ Dr. Diaz, patient has reached out to their office to facilitate
-Follow up arranged w/ cardiology.
Original Note:
Today's Communication / Plan
-
Continue Toprol, lisinopril, spironolactone, furosemide
Add amlodipine 5mg QPM
Continue aspirin, plavix
No afib noted, continue amiodarone 200mg daily
Follow up arranged w/ cardiology
Will need follow up with Dr. Diaz
Impression / Plan
-
PCP: Dr. Greg Trejo
[employer]: Dr. Veloz
Impression:
Presentation with back pain, possibly related to retrograde flow at distal end of for flex graft/frozen elephant trunk
CAD
CABG x2 (LEACH - LAD, free radial - PDA) 2003
stable coronary disease with patent grafts by cath 11/18/2018
h/o [place] I aortic dissection s/p redo sternotomy, AV resuspension, ascending, repair of innominate artery, reimplantation of R radial artery CABG graft to aorta and FET (total arch replacement 30mm Thoraflex and 32mm TEVAR) [facility], Dr. López
Joe 01/28/23
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
Paroxysmal atrial fibrillation
Linq monitor implanted 04/12/2023
Not chronically anticoagulated due to h/o hemoptysis
Chronic amiodarone therapy
Chronic LBBB
h/o L CVAs 03/2017
TIA 03/04/17
HTN
HLD
DM2
Hypothyroidism
GERD
LOLY
Obesity s/p sleeve gastrectomy 2019
Echo 07/25/2021: EF 59%, mild cLVH, mild MR, mildly dilated RV, mildly dilated ascending aorta 4.0cm
Post-Op LAURA 01/28/2023 @[facility]: EF 40-45%, moderate RV dysfunction, inferior septal hypokinesis, trace TR
Echo 06/04/2023: EF 35 to 40%, globally hypokinetic ventricle, flattening of interventricular septum consistent with RV pressure and volume overload, dilated RV, severely dilated left atrium, moderate MR, mild TR, PAP 46 mmHg, aortic root measures
4.2 cm at sinus of Valsalva and 4.6 cm and ascending portion of thoracic aorta
Echo 12/07/2023: EF 50-55%, septal contraction abnormality, dilated RV, dilated LA, mild-moderate eccentric mitral regurgitation, trace aortic regurgitation, normal aortic valve, sinus of Valsalva 4.6 cm, false lumen noted in the descending thoracic
aorta
Plan:
-Presented with back pain. Unclear if this is related to dissection or possibly musculoskeletal. No further back pain this admission,
-Appears well. BP better controlled on Toprol 25mg BID, lisinopril 20mg BID, spironolactone 12.5mg daily and furosemide 40mg daily.
-Add amlodipine 5mg QPM.
-Echo 12/06 with EF 50-55%, mild-mod MR as noted above.
-Continue Farxiga 10mg daily while admitted. On Jardiance 10mg daily as OP.
-Continue aspirin, plavix.
-Continue amiodarone 200mg daily for h/o PAF. Linq in place. Not on OAC chronically due to hemoptysis. No afib noted on tele.
-Will need follow up w/ Dr. Diaz, patient has reached out to their office to facilitate
-Follow up arranged w/ cardiology.
HPI: Juan M is a 57 year old male with PMH of CAD s/p CABG, type A aortic dissection s/p repair, paroxysmal atrial fibrillation, CVA, HTN, HLD, DM2, and LOLY who presented to [facility] for evaluation of SOB. He notes that for the past few days he has had
some increased SOB. He was seen by his PCP who felt that anxiety may be contributing to his symptoms and he was started on medication for anxiety. Last night he then states he woke up in the middle of the night, gasping for air. He notes this was
uncommon for him, and he was unable to fall back asleep. He thought he would try to participate in cardiac rehab today, however when doing his first exercise, he became extremely SOB and knew he would not be able to continue exercising. He was sent
to the ER for further evaluation and was found to have evidence of acute heart failure with elevated proBNP and pleural effusions. He was given a dose of IV lasix in the ER and notes his breathing has improved and he has been responding quickly to
the lasix. He has been admitted for further evaluation and treatment and cardiology consulted for evaluation. He notes he has had increased abdominal bloating and mild LE edema. Has not noticed weight gain, however weight recorded in ER is 14lbs
higher than last OV weight 03/2023. Denies any chest pain or palpitations.
Progress Note - [employer]
Subjective
Date of Service: December 10, 2023
No complaints. Feeling well.
Objective
Labs:
12/10/23 06:31
Labs
Hgb 12.6 g/dL (13.0-18.0) L 12/10/23 06:31
Hct 37.5 % (39.0-52.0) L 12/10/23 06:31
Plt Count 348 10^3/uL (130-400) 12/10/23 06:31
PT 13.6 Sec (11.4-14.6) 12/07/23 05:49
INR 1.04 12/07/23 05:49
APTT 34.3 Sec (23.4-35.0) 12/07/23 05:49
Sodium 138 mmol/L (135-145) 12/09/23 04:17
Potassium 4.7 mmol/L (3.5-5.1) 12/09/23 04:17
BUN 26 mg/dl (9-20) H 12/09/23 04:17
Creatinine 0.9 mg/dL (0.7-1.3) 12/09/23 04:17
Glucose 94 mg/dl (70-99) 12/09/23 04:17
Vital Signs and I&O:
Vital Signs
Temp Pulse Resp BP Pulse Ox
97.9 F 56 18 109/50 98
12/10/23 03:44 12/10/23 03:44 12/10/23 03:44 12/10/23 03:44 12/10/23 03:44
Vital Signs
Temp Pulse Resp BP Pulse Ox
97.9 F 56 18 109/50 98
12/10/23 03:44 12/10/23 03:44 12/10/23 03:44 12/10/23 03:44 12/10/23 03:44
Intake & Output
12/08/23 12/09/23 12/10/23 12/11/23
07:59 06:59 06:59 06:59
Intake Total 1200 / 1200
Output Total 1950 / 1950
Balance -750 / -750
Physical Exam
Physical Exam
GEN: No distress, awake, alert, oriented x3
HEENT: supple, anicteric, mmm
LUNGS: CTA b/l, no wheezes/rales
CV: Reg, S1/S2, 1/6 syst murmur
EXT: No clubbing, cyanosis, or edema
NEURO: Gross non-focal
SKIN: Warm, dry, no rash
[2023-12-10 08:55] LABS: Blood Urea Nitrogen 21 mg/dl (9-20); Carbon Dioxide 27 mmol/L (22-30); Chloride 101 mmol/L (98-107); Estimated Creatinine Clearance 116 ml/min; Glucose 93 mg/dl (70-99); Potassium 4.8 mmol/L (3.5-5.1); Sodium 139 mmol/L (135-145); eGFR > 60.00
[2023-12-10 11:15] VITALS: BP 145/76
[2023-12-10 11:27] LABS: Glucose - Point of Care 103 mg/dl (70-99)
--- NOTE | 2023-12-10 12:13 | CM ---
CM reviewed chart, met with patient bedside. Patient denies needs from CM at this time, hopeful for discharge today. CM will continue to follow for all discharge planning needs.
Plan; home no needs.
--- NOTE | 2023-12-10 12:29 | W.PN.HOSP.TC ---
Addendum entered and electronically signed by Geo Erickson MD 12/10/23 14:34:
Vascular surgery follow-up with [facility]. He spoke with his vascular surgeon at [facility] which recommended if he had any further abdominal pain/chest discomfort to present back to [facility].
Antihypertensives have been adjusted to target lower blood pressure and heart rate. Continue Toprol 25 mg daily. Continue Aldactone 12.5 mg daily. Continue Lasix 40 mg daily. Lisinopril 5 mg stopped. Started on lisinopril 20 mg. Started on
amlodipine 5 mg at bedtime. Cleared by cardiology for discharge home.
More than 30 minutes spent in discharge including
Final examination of the patient
Summarizing hospital stay
Instructions for continuing care to all relevant caregivers
Preparation of discharge records, prescriptions, and referral forms
Total time spent (in minutes): 33mins
Original Note:
Today's Communication/Plan
-
Discharge with addition of 5 mg amlodipine per cardiology
Follow-up with Dr. Hamm in outpatient
Assessment / Plan
Assessment / Plan
56-year-old male with past medical history of aortic dissection s/p repair in 2022 ASCVD, HTN, DM-II presented to the ED complaining of upper back pain. Found to have aortic dissection on imaging.
#Aortic dissection
ICU -> telemetry per cards
CTA 12/07/23 -Post repair of type A aortic dissection. new intimal tear along the distal aspect of metallic stent along the distal aortic arch
Keep SBP < 120 and HR < 60
IV nicardipine weaned off overnight, BP stable
esmolol gtt d/c
BP a bit high this morning 140/76. Change in BP meds made per cards
Metoprolol 25 mg q6hr ->25 mg ER BID
Lisinopril 10mg qd ->20BID
Vascular spoke to Dr. Diaz who did his previous aortic repair
If patient remains pain-free and BP controlled on p.o. meds, they can follow-up with Dr. Diaz as outpatient.
One episode of HTN 147/ so 10mg hydralizine
Cardiology added 5mg amlodipine
Discharge today
# ASCVD
Stable, no anterior chest pain
EKG shows known LBBB. Troponin undetectable
Continue ASA, statin, restart metoprolol per cardiology/vascular
Restart clopidogrel 75mg qd
# Paroxysmal A-fib
Stable, continue Amio, restart metoprolol
Not on any chronic anticoagulation therapy presumably due to known aortic aneurysm/dissection
#Chronic HFrEF
Prior echo LVEF 35%
No evidence of acute volume overload
Continue Lasix and Aldactone
Restart SGLT2 inhibitor
Follow I's and O's/daily weights
#Benign hypertension
Aggressive control PO meds per above
Adjust as needed
#Type 2 diabetes
Restart SGLT2, restart metformin
Cover with SSI's as needed
Hemoglobin A1c 6.1
#Anxiety/depression
Continue sertraline
#Anemia
Baseline. On iron supplements at home. stable
#Obesity due to excess calories
Status post gastrectomy sleeve
Encouraged healthy diet
DVT prophylaxis SCDs
Diabetic diet
Status full code
Anticipated Discharge: Today
Subjective/Interval History
-
Date of Service: December 10, 2023
Objective Data
-
Labs:
Laboratory Results
12/10/23
06:31
WBC 9.8
Hgb 12.6 L
Hct 37.5 L
Plt Count 348
Sodium 139
Potassium 4.8
Chloride 101
Carbon Dioxide 27
BUN 21 H
Creatinine 0.9
Glucose 93
Calcium 9.0
Vital Signs:
Vital Signs
Temp Pulse Resp BP Pulse Ox
98.1 F 62 16 145/76 98
12/10/23 11:15 12/10/23 11:15 12/10/23 11:15 12/10/23 11:15 12/10/23 11:15
I&O
12/09/23 12/10/23 12/11/23
06:59 06:59 06:59
Intake Total 1200 / 1200
Output Total 1950 / 1949
Balance -750 / -750
Review of Systems
-
History Source: Patient
EENT: Reports No Symptoms Reported
Respiratory: Reports No Symptoms
Cardiac: Reports No Symptoms
Abdomen/GI: Reports No Symptoms
Neuro: Reports No Symptoms
Physical Exam
-
General: Comfortable
HEENT: Normocephalic
Respiratory: Clear to Auscultation
Cardiac: Regular Rhythm, S1/S2 and Murmur (Best heard at right sternal boarder)
GI: Soft, Nontender, Nondistended and Normal Bowel Sounds
Musculoskeletal: No Edema
Neuro: AO x 3
Psych: Calm
--- NOTE | 2023-12-10 13:56 | W.DCSUMMARY ---
Discharge Summary
Discharge Data
Date of Admission: 12/07/23
Date of Discharge: 12/10/23
-
Pending Results: No
Hospital Course
Primary diagnosis:
Aortic dissection
Secondary diagnosis:
ASCVD
Paroxysmal A-fib
Chronic HFrEF
Benign hypertension
Type 2 diabetes
Anxiety depression
Anemia
Obesity due to excess calories
Hospital course:
58-year-old male with past medical history of type A aortic dissection status postrepair 2022 presents to ED with pain that radiates to right back of right scapula. Found to have repeat type A aortic dissection. Admitted to ICU with strict blood
pressure and heart rate parameters. Placed on nicardipine and esmolol drip. Vascular and cardiology consulted. Home metoprolol held, amiodarone for past medical history of A-fib continued. Repeat echo showed 50 to 55% LVEF, improvement from prior
echo 06-04-2023 which showed 35 to 40%. Vascular consulted at with prior vascular surgeon Dr. Diaz at [facility] further recommendations. As long as patient's blood pressure and heart rate was well-controlled at [facility] with no pain, could monitor
here, transfer to p.o. meds and follow-up in outpatient. Weaned off Nicardipine and esmolol drip, transition to p.o. metoprolol and lisinopril. Doses titrated to metoprolol succinate 25 mg twice daily lisinopril 20 twice daily, with the addition
of amlodipine 5 nightly per cardiology recommendation.
Today, patient is stable and does not complain of any back pain. Blood pressure is well-controlled on current regimen. Patient advised to monitor blood pressure closely at home and follow-up with PCP if systolic is above 140. To also monitor for
heart rates greater than 60 and to be compliant with his blood pressure medication. Patient plans to follow-up with Dr. Diaz at [facility] for further evaluation.
Discharge Plan
-
Patient Disposition: Home (Routine Discharge)
Discharge Diagnosis/Procedures: Type A aortic dissection
Condition: Fair
Diet: As tolerated
Activity: As tolerated
Driving Restrictions: As prior to admission
Bathing Restrictions: None
Instructions: BLOOD PRESSURE
Referrals:
Rene Diaz [Other] - in one to two weeks (Please call for follow up)
Albina Haney PA-C [Specified Professional Personl] - 12/26/23 12:40 pm (You have a follow up visit with Dr. Veloz's Albina WEISS, at the [place] office. Please call with questions. )
Demetria Mukherjee, [Family Provider] - in less than 1 week
Additional Discharge Medication Instructions: Monitor blood pressure. Keep a log of a.m. and p.m. values, monitor heart rate.
If systolic blood pressure greater than 140, contact PCP for adjustments of medications.
If pain returns, come back for evaluation.
Follow-up with Dr. Diaz in outpatient.
Take medications at 8 AM and 8 PM as directed.
Prescriptions:
New
amlodipine 5 mg tablet
5 mg PO HS 30 Days Qty: 30 0RF
Rx Instructions:
Take each evening around 8pm or after dinner
lisinopril 20 mg Tablet
20 mg PO BID 30 Days Qty: 60 0RF
Continued
atorvastatin 80 MG tablet
80 mg PO DAILY
ferrous sulfate [Iron (ferrous sulfate)] 325 mg (65 mg iron) Tablet
325 mg PO NOON
sertraline 50 mg Tablet
75 mg PO DAILY
metformin 500 mg Tablet
500 mg PO BIDWMEAL
aspirin 81 mg Tablet,Delayed Release (/Ec)
81 mg PO DAILY
levothyroxine 50 mcg Tablet
50 mcg PO DAILY
spironolactone 25 mg Tablet
12.5 mg PO DAILY Qty: 30 0RF
Jardiance 10 mg Tablet
10 mg PO DAILY Qty: 30 0RF
furosemide [Lasix] 40 mg tablet
40 mg PO DAILY Qty: 30 0RF
clopidogrel 75 MG tablet
75 mg PO DAILY Qty: 30 0RF
metoprolol succinate 25 mg Tablet Extended Release 24 Hr
25 mg PO BID 30 Days Qty: 60 0RF
amiodarone 200 mg Tablet
200 mg PO DAILY 30 Days Qty: 30 0RF
Discontinued
lisinopril 5 mg Tablet
5 mg PO HS Qty: 30 0RF
Discharge Orders:
Discharge Patient (As Directed); Ordered 12/10/23
Ordered By: Esther Lundberg
Discharge Date and Time
Print Language: UKRAINIAN
[2023-12-10 14:56] VITALS: BP 154/79
== END 2023-12-10 16:13 | disposition home or self-care (01) | DRG 300 ==
LOC: 4 WEST ACU 05:35
PROVIDERS: Clinical Nurse Specialist Family Health; Nurse Practitioner Primary Care; ADMITTING PHYSICIAN Hospitalist; ATTENDING PHYSICIAN Hospitalist; CONSULT PHYSICIAN Internal Medicine Critical Care Medicine; CONSULT PHYSICIAN Thoracic Surgery (Cardiothoracic Vascular Surgery); EMERGENCY PHYSICIAN Emergency Medicine; FAMILY PHYSICIAN Family Medicine; OTHER PHYSICIAN Internal Medicine Cardiovascular Disease; OTHER PHYSICIAN Surgery Vascular Surgery
DX: I71.02 Dissection of abdominal aorta (principal); I50.22 Chronic systolic (congestive) heart failure; E11.9 Type 2 diabetes mellitus without complications; E03.9 Hypothyroidism, unspecified; E78.00 Pure hypercholesterolemia, unspecified; I48.0 Paroxysmal atrial fibrillation; F32.A Depression, unspecified; F41.9 Anxiety disorder, unspecified; D64.9 Anemia, unspecified; E66.09 Other obesity due to excess calories; Z68.33 Body mass index [BMI] 33.0-33.9, adult; G47.33 Obstructive sleep apnea (adult) (pediatric); I11.0 Hypertensive heart disease with heart failure; I25.10 Atherosclerotic heart disease of native coronary artery without angina pectoris; K21.9 Gastro-esophageal reflux disease without esophagitis; I44.7 Left bundle-branch block, unspecified; I25.5 Ischemic cardiomyopathy; Z79.02 Long term (current) use of antithrombotics/antiplatelets; Z98.84 Bariatric surgery status; Z96.651 Presence of right artificial knee joint; Z95.5 Presence of coronary angioplasty implant and graft; Z95.1 Presence of aortocoronary bypass graft; Z95.828 Presence of other vascular implants and grafts; Z87.891 Personal history of nicotine dependence; Z86.79 Personal history of other diseases of the circulatory system; Z86.73 Personal history of transient ischemic attack (TIA), and cerebral infarction without residual deficits; Z82.49 Family history of ischemic heart disease and other diseases of the circulatory system; Z79.899 Other long term (current) drug therapy; Z79.890 Hormone replacement therapy; Z79.84 Long term (current) use of oral hypoglycemic drugs; Z79.82 Long term (current) use of aspirin; I25.2 Old myocardial infarction; Z88.5 Allergy status to narcotic agent
CPT/HCPCS: 71045; 71275; 74174; 80048; 80053; 82962; 83036; 84484; 85025; 85027; 85610; 85730; 93005; 93306; 99285; Q9967

== ENCOUNTER → 2024-03-03 07:18 | Outpatient (REF) | payer BC, SELFPAY ==
[2024-03-03 08:15] LABS: ALT (SGPT) 57 U/L (0-50); AST (SGOT) 57 U/L (17-59); Alkaline Phosphatase 108 U/L (38-126); Blood Urea Nitrogen 25 mg/dl (9-20); Calcium 8.7 mg/dl (8.4-10.2); Carbon Dioxide 30 mmol/L (22-30); Chloride 101 mmol/L (98-107); Glucose 116 mg/dl (70-99); HDL Cholesterol 50 mg/dl; LDL Cholesterol, Calculated 62 mg/dl; Sodium 141 mmol/L (135-145); Total Bilirubin 0.5 mg/dl (0.2-1.3); Total Cholesterol 123 mg/dl (50-199); Total Protein 7.1 g/dl (6.3-8.2); Triglyceride 59 mg/dl (10-149); Very Low Density Lipoprotein 11 mg/dl (0-30); eGFR > 60.00
[2024-03-03 08:21] LABS: Potassium 4.5 mmol/L (3.5-5.1)
[2024-03-03 08:46] LABS: TSH Reflex To Free T4 5.68 uIU/ml (0.47-4.68)
[2024-03-03 09:14] LABS: Free T4 1.23 ng/dl (0.78-2.19)
== END ==
LOC: REG 07:18
PROVIDERS: ATTENDING PHYSICIAN Internal Medicine Cardiovascular Disease; FAMILY PHYSICIAN Family Medicine
DX: I50.22 Chronic systolic (congestive) heart failure (principal)
CPT/HCPCS: 36415; 80053; 80061; 84439; 84443

== ENCOUNTER → 2024-08-01 12:11 | Outpatient (REF) | payer BC, SELFPAY ==
[2024-08-01 13:17] LABS: ALT (SGPT) 29 U/L (0-50); AST (SGOT) 29 U/L (17-59); Albumin 4.5 g/dl (3.5-5.0); Alkaline Phosphatase 94 U/L (38-126); Blood Urea Nitrogen 28 mg/dl (9-20); Calcium 9.4 mg/dl (8.4-10.2); Carbon Dioxide 25 mmol/L (22-30); Chloride 108 mmol/L (98-107); Glucose 104 mg/dl (70-99); HDL Cholesterol 50 mg/dl; LDL Cholesterol, Calculated 57 mg/dl; Potassium 4.6 mmol/L (3.5-5.1); Sodium 141 mmol/L (135-145); Total Bilirubin 0.8 mg/dl (0.2-1.3); Total Cholesterol 125 mg/dl (50-199); Total Protein 7.9 g/dl (6.3-8.2); Triglyceride 90 mg/dl (10-149); Very Low Density Lipoprotein 18 mg/dl (0-30); eGFR > 60.00
[2024-08-01 13:45] LABS: TSH Reflex To Free T4 2.95 uIU/ml (0.47-4.68)
== END ==
LOC: REG 12:11
PROVIDERS: ATTENDING PHYSICIAN Internal Medicine Cardiovascular Disease; FAMILY PHYSICIAN Internal Medicine
DX: I25.10 Atherosclerotic heart disease of native coronary artery without angina pectoris (principal); I50.22 Chronic systolic (congestive) heart failure
CPT/HCPCS: 36415; 80053; 80061; 84443